=== PATIENT | male | born 1970 | race Caucasian/White ===

== ENCOUNTER 2017-11-20 22:56 | Emergency (ER) | payer BC ==
[2017-11-20 23:02] VITALS: TEMP 97.7
[2017-11-21] MEDS ORDERED: IPRATROPIUM-ALBUTEROL 3 ML NEB INHALATION STA (00:32)
[2017-11-21] MEDS ORDERED: methylPREDNISolone SOD SUCCI 125 MG/2 ML VIAL IM STA (00:32)
--- NOTE | 2017-11-21 01:06 | XR ---
EXAMINATION TYPE: XR chest 2V DATE OF EXAM: 11/21/2017 COMPARISON: NONE HISTORY: Cough TECHNIQUE: Frontal and lateral views of the chest are obtained. FINDINGS: Heart and mediastinum are normal. Lungs are clear. Diaphragm is normal. Bony thorax appear s normal. IMPRESSION: Normal chest. No change.
--- NOTE | 2017-11-21 01:49 | ED ---
General Adult HPI - General Chief complaint: Shortness of Breath Stated complaint: AGUSTINA Time Seen by Provider: 11/21/17 00:09 Source: patient, RN notes reviewed Mode of arrival: ambulatory Limitations: no limitations - History of Present Illness Initial comments: 47-year-old male presents to the emergency department with a chief complaint of asthma exacerbation. Patient states he's been using his inhalers at home without much improvement. He states he still feels short of breath and still has wheezing. He states there is been no actual nausea or vomiting. He has not had any high fevers or chills. He states that he just continues to have this cough he continues to feel short of breath. He was concerned because his inhalers did not seem to be helping him as much as they normally do so he thought that he should be seen. Patient states is not currently having any other symptoms at this time. Patient denies any recent fever, chills, chest pain , back pain, abdominal pain, nausea vomiting, numbness or tingling, dysuria or hematuria, constipation or diarrhea, headaches or visual changes, or any other current symptoms. - Related Data Home Medications Medication Instructions Recorded Confirmed Albuterol Sulfate [Proair Hfa] 2 puff INHALATION Q4HR PRN 04/11/14 02/05/16 Empagliflozin/Linagliptin 1 each PO QAM 02/03/16 02/05/16 [Glyxambi 25 mg-5 mg Tablet] Loratadine [Claritin] 10 mg PO DAILY 02/03/16 02/05/16 Mometasone/Formoterol [Dulera 100 2 puff INHALATION DIRECTED PRN 02/03/1601/17 Mcg/5 Mcg Inhaler] Omeprazole [PriLOSEC] 20 mg PO DAILY PRN 02/03/16 02/05/16 Tadalafil [Cialis] 20 mg PO DIRECTED PRN 02/03/16 02/05/16 metFORMIN HCL ER [Glucophage Xr] 2,000 mg PO QAM 02/03/16 02/05/16 Previous Rx's Medication Instructions Recorded Albuterol Nebulized [Ventolin 2.5 mg INHALATION Q4H #20 nebu 11/21/17 Nebulized] predniSONE 50 mg PO DAILY #5 tab 11/21/17 Allergies Allergy/AdvReac Type Severity Reaction Status Date / Time Iodinated Contrast- Oral and Allergy "PASSED Verified 11/20/17 23:02 IV Dye OUT, after [Iodinated Contrast Media - fluroscopy" IV Dye] Review of Systems ROS Statement: Those systems with pertinent positive or pertinent negative responses have been documented in the HPI. ROS Other: All systems not noted in ROS Statement are negative. Past Medical History Past Medical History: Asthma, Diabetes Mellitus, GERD/Reflux Additional Past Medical History / Comment(s): hx migraines, constipation and bloating, History of Any Multi-Drug Resistant Organisms: None Reported Past Surgical History: Hernia Repair, Orthopedic Surgery Additional Past Surgical History / Comment(s): ARTHROSCOPIC RT KNEE , rt SHOULDER surgery, Past Anesthesia/Blood Transfusion Reactions: Motion Sickness Past Psychological History: No Psychological Hx Reported Smoking Status: Never smoker Past Alcohol Use History: Occasional Past Drug Use History: None Reported - Past Family History Father Family Medical History: Cancer General Exam Limitations: no limitations General appearance: alert, in no apparent distress Eye exam: Present: normal appearance, PERRL, EOMI. Absent: scleral icterus, conjunctival injection, periorbital swelling ENT exam: Present: normal exam, mucous membranes moist Neck exam: Present: normal inspection. Absent: tenderness, meningismus, lymphadenopathy Respiratory exam: Present: wheezes (Expiratory), decreased breath sounds. Absent: respiratory distress, rales, rhonchi, stridor Cardiovascular Exam: Present: regular rate, normal rhythm, normal heart sounds. Absent: systolic murmur, diastolic murmur, rubs, gallop, clicks Extremities exam: Present: normal inspection, full ROM, normal capillary refill. Absent: tenderness, pedal edema, joint swelling, calf tenderness Back exam: Present: normal inspection Neurological exam: Present: alert, oriented X3 Psychiatric exam: Present: normal affect, normal mood Skin exam: Present: warm, dry, intact, normal color. Absent: rash Course Vital Signs 11/20/17 11/21/17 11/21/17 22:58 01:00 01:04 Temperature 97.7 F Pulse Rate 96 Respiratory 20 20 20 Rate Blood Pressure 133/73 O2 Sat by Pulse 99 Oximetry 11/21/17 11/21/17 01:12 01:21 Temperature Pulse Rate 96 96 Respiratory Rate Blood Pressure O2 Sat by Pulse Oximetry Medical Decision Making - Medical Decision Making 47-year-old male presents with what appears to be an asthma exacerbation. After treatment patient did have some improvement of symptoms. At this time he was given Solu-Medrol. We'll start him on steroids and a breathing machine for home. We discussed return parameters and follow-up and all questions. Patient stated that he understood and he is in agreement with this plan. All questions have been answered. He will be discharged. - Radiology Data Radiology results: report reviewed, image reviewed Disposition Clinical Impression: Asthma exacerbation Disposition: HOME SELF-CARE Condition: Stable Instructions: Asthma (ED) Additional Instructions: Please use medication as discussed. Please follow up with family doctor if symptoms have not improved over the next two days. Please return to the emergency room if your symptoms increase or worsen or for any other concerns. Prescriptions: Albuterol Nebulized [Ventolin Nebulized] 2.5 mg INHALATION Q4H #20 nebu predniSONE 50 mg PO DAILY #5 tab Referrals: Scot Harrison III, MD [Primary Care Provider] - 1-2 days Time of Disposition: 01:48
[2017-11-21 02:14] VITALS: BP 146/81; PULSE 82; RESP 16
== END 2017-11-21 02:13 | disposition home or self-care (01) ==
LOC: EC 22:56
DX: J45.901 Unspecified asthma with (acute) exacerbation (principal); K21.9 Gastro-esophageal reflux disease without esophagitis; E11.9 Type 2 diabetes mellitus without complications; Z91.041 Radiographic dye allergy status; Z79.84 Long term (current) use of oral hypoglycemic drugs; Z79.899 Other long term (current) drug therapy
CPT/HCPCS: 99285; 96372; 94640; 71046; J2930

== ENCOUNTER 2019-08-12 09:05 | Emergency (ER) | payer BC ==
[2019-08-12 09:22] VITALS: BP 127/88; PULSE 95; RESP 16; TEMP 97.6
[2019-08-12] MEDS ORDERED: SODIUM CHLORIDE 0.9% 2,000 ML IV STA (09:33)
[2019-08-12] MEDS ORDERED: DICYCLOMINE 20 MG TAB PO STA (09:34)
[2019-08-12 10:07] LABS: Basophils # (A) 0.1 k/uL (0-0.2); Basophils % (A) 1 %; Eosinophils # (A) 0.3 k/uL (0-0.7); Eosinophils % (A) 3 %; HCT 51.7 % (39.0-53.0); HGB 17.2 gm/dL (13.0-17.5); Lymphocytes # (A) 1.3 k/uL (1.0-4.8); Lymphocytes % (A) 11 %; MCH 26.5 pg (25.0-35.0); MCHC 33.2 g/dL (31.0-37.0); MCV 79.8 fL (80.0-100.0); Mean Platelet Volume 6.6; Monocytes # (A) 0.7 k/uL (0-1.0); Monocytes % (A) 5 %; Neutrophils % (A) 79 %; Platelet Count 285 k/uL (150-450); RBC 6.49 m/uL (4.30-5.90); WBC 12.6 k/uL (3.8-10.6)
[2019-08-12 10:15] LABS: ALT 45 U/L (21-72); AST 32 U/L (17-59); African American GFR (CKD) >90 (>60 ml/min/1.73 sqM); Albumin 4.4 g/dL (3.5-5.0); Alkaline Phosphatase 81 U/L (38-126); Amylase 65 U/L (30-110); Anion Gap 16 mmol/L; Blood Urea Nitrogen 13 mg/dL (9-20); Calcium 10.1 mg/dL (8.4-10.2); Carbon Dioxide 18 mmol/L (22-30); Chloride 107 mmol/L (98-107); Glucose 150 mg/dL (74-99); Potassium 4.2 mmol/L (3.5-5.1); Sodium 141 mmol/L (137-145); Total Bilirubin 0.4 mg/dL (0.2-1.3); Total Protein 7.8 g/dL (6.3-8.2)
--- NOTE | 2019-08-12 10:40 | CT ---
EXAMINATION TYPE: CT abdomen pelvis wo con DATE OF EXAM: 08/12/2019 COMPARISON: Previous study dated 11/25/2015. HISTORY: Nausea and diarrhea for 5-6 days. No complaints of pain. CT DLP: 968.1 mGycm Automated exposure control for dose reduction was used. FINDINGS: There is some minimal dependent atelectasis in the dependent portions of the lungs. There i s no pleural or pericardial fluid. The heart is not enlarged. Within the abdomen, the liver is enlarged measuring 23 cm. It is low in attenuation and likely fatty infiltrated. There is some fatty sparing near the gallbladder fossa. The spleen and gallbladder appea r normal. Both adrenal glands are normal There is a 2 mm calculus in the anterior lower pole calyx of the right kidney. No other definite cm l stones are seen. There is no evidence of hydronephrosis. The pancreas is normal. There is no significant retroperitoneal, iliac or inguinal adenopathy. Bladder is unremarkable. No significant diverticular change and there is no radiographic evidence of diverticulitis. The appen dyana is normal. Retrocecal. Small bowel loops are normal caliber. Free fluid There is been a previous anterior abdominal wall hernia repair. The hernia has recurred and contains fat only. Previously noted inguinal hernia is not identified. There is degenerative disc disease in the lower lumbar spine. There is minor hypertrophic spondylosis in the lower dorsal spine. IMPRESSION: 1. HEPATOMEGALY AND PROBABLE FATTY INFILTRATION OF THE LIVER. 2. NONOBSTRUCTIVE RIGHT-SIDED NEPHROLITHIASIS. 3. APPARENT ANTERIOR ABDOMINAL WALL HERNIA CONTAINING FAT ONLY. 4. DEGENERATIVE CHANGES WITHIN THE SPINE.
--- NOTE | 2019-08-12 10:44 | ED ---
Nausea/Vomiting/Diarrhea HPI - General Chief complaint: Nausea/Vomiting/Diarrhea Stated complaint: Stomach pain for a week/diarrhea Time Seen by Provider: 08/12/19 09:22 Source: patient, RN notes reviewed Mode of arrival: ambulatory Limitations: no limitations - History of Present Illness Initial comments: 49-year-old male presents emergency Department with chief complaint of abdominal pain, bloating and diarrhea. Patient states he has not felt well over the last week. He states initially thought he just ate something bad states he is having gas. He states that he started with the diarrhea. He did have the day yesterday but symptoms emergency worsened today. Patient states is very thirsty, he's had increase output with oral intake. Patient denies any no fevers or chills. Denies any sick contacts. Patient states that he had symptoms like this in the past in which he had some bowel issues. Patient has no dysuria no hematuria denies any melena or hematochezia. Patient 10 no recent antibiotic use no traveling. - Related Data Home Medications Medication Instructions Recorded Confirmed Omeprazole [PriLOSEC] 20 mg PO DAILY 02/03/16 08/12/19 metFORMIN HCL ER [Glucophage Xr] 2,000 mg PO DAILY 02/03/16 08/12/19 Atorvastatin [Lipitor] 20 mg PO DAILY 08/12/19 08/12/19 Empagliflozin [Jardiance] 25 mg PO DAILY 08/12/19 08/12/19 Fluticasone/Vilanterol [Breo 1 puff INHALATION RT-DAILY 08/12/19 08/12/19 Ellipta 100-25 Mcg Inhaler] sitaGLIPtin PHOSPHATE [Januvia] 100 mg PO DAILY 08/12/19 08/12/19 Previous Rx's Medication Instructions Recorded Dicyclomine [Bentyl] 20 mg PO TID #30 tablet 08/12/19 Ondansetron Odt [Zofran Odt] 4 mg PO Q8HR PRN #14 tab 08/12/19 Allergies Allergy/AdvReac Type Severity Reaction Status Date / Time Iodinated Contrast Media Allergy "PASSED Verified 08/12/19 10:11 [Iodinated Contrast Media - OUT, after IV Dye] fluroscopy" Review of Systems ROS Statement: Those systems with pertinent positive or pertinent negative responses have been documented in the HPI. ROS Other: All systems not noted in ROS Statement are negative. Past Medical History Past Medical History: Asthma, Diabetes Mellitus, GERD/Reflux Additional Past Medical History / Comment(s): hx migraines, constipation and bloating, History of Any Multi-Drug Resistant Organisms: None Reported Past Surgical History: Hernia Repair, Orthopedic Surgery Additional Past Surgical History / Comment(s): ARTHROSCOPIC RT KNEE , rt SHOULDER surgery, Past Anesthesia/Blood Transfusion Reactions: Motion Sickness Past Psychological History: No Psychological Hx Reported Smoking Status: Never smoker Past Alcohol Use History: Occasional Past Drug Use History: None Reported - Past Family History Father Family Medical History: Cancer General Exam Limitations: no limitations General appearance: alert, in no apparent distress Head exam: Present: atraumatic, normocephalic, normal inspection Eye exam: Present: normal appearance, PERRL, EOMI. Absent: scleral icterus, conjunctival injection, periorbital swelling ENT exam: Present: normal exam, normal oropharynx, mucous membranes moist Neck exam: Present: normal inspection. Absent: tenderness, meningismus, lymphadenopathy Respiratory exam: Present: normal lung sounds bilaterally. Absent: respiratory distress, wheezes, rales, rhonchi, stridor Cardiovascular Exam: Present: regular rate, normal rhythm, normal heart sounds. Absent: systolic murmur, diastolic murmur, rubs, gallop, clicks GI/Abdominal exam: Present: soft, tenderness (Minimal diffuse), normal bowel sounds. Absent: distended, guarding, rebound, rigid Back exam: Absent: CVA tenderness (R), CVA tenderness (L) Neurological exam: Present: alert Skin exam: Present: warm, dry, intact, normal color. Absent: rash Course Vital Signs 08/12/19 09:20 Temperature 97.6 F Pulse Rate 95 Respiratory 16 Rate Blood Pressure 127/88 O2 Sat by Pulse 97 Oximetry Medical Decision Making - Medical Decision Making Labs show mild dehydration, mild metabolic acidosis related to GI loss. Patient was hydrated well 2 L of fluids, given Bentyl. Symptoms have improved. CT shows nonspecific findings including umbilical hernia, fatty liver disease. Patient will be treated for traveler's diarrhea. Patient was given one dose of azithromycin emergency department. Patient to eat given Bentyl, antiemetics. - Lab Data Result diagrams: 08/12/19 09:54 08/12/19 09:54 Lab Results 08/12/19 08/12/19 08/12/19 Range/Units 09:54 09:54 10:48 WBC 12.6 H (3.8-10.6) k/uL RBC 6.49 H (4.30-5.90) m/uL Hgb 17.2 (13.0-17.5) gm/dL Hct 51.7 (39.0-53.0) % MCV 79.8 L (80.0-100.0) fL MCH 26.5 (25.0-35.0) pg MCHC 33.2 (31.0-37.0) g/dL RDW 15.0 (11.5-15.5) % Plt Count 285 (150-450) k/uL Neutrophils % 79 % Lymphocytes % 11 % Monocytes % 5 % Eosinophils % 3 % Basophils % 1 % Neutrophils # 10.0 H (1.3-7.7) k/uL Lymphocytes # 1.3 (1.0-4.8) k/uL Monocytes # 0.7 (0-1.0) k/uL Eosinophils # 0.3 (0-0.7) k/uL Basophils # 0.1 (0-0.2) k/uL Sodium 141 (137-145) mmol/L Potassium 4.2 (3.5-5.1) mmol/L Chloride 107 (98-107) mmol/L Carbon Dioxide 18 L (22-30) mmol/L Anion Gap 16 mmol/L BUN 13 (9-20) mg/dL Creatinine 0.81 (0.66-1.25) mg/dL Est GFR (CKD-EPI)AfAm >90 (>60 ml/min/1.73 sqM) Est GFR (CKD-EPI)NonAf >90 (>60 ml/min/1.73 sqM) Glucose 150 H (74-99) mg/dL Calcium 10.1 (8.4-10.2) mg/dL Total Bilirubin 0.4 (0.2-1.3) mg/dL AST 32 (17-59) U/L ALT 45 (21-72) U/L Alkaline Phosphatase 81 (38-126) U/L Total Protein 7.8 (6.3-8.2) g/dL Albumin 4.4 (3.5-5.0) g/dL Amylase 65 (30-110) U/L Lipase 75 (23-300) U/L Urine Color Yellow Urine Appearance Clear (Clear) Urine pH 5.5 (5.0-8.0) Ur Specific [place] 1.040 H (1.001-1.035) Urine Protein Trace H (Negative) Urine Glucose (UA) 4+ H (Negative) Urine Ketones 1+ H (Negative) Urine Blood Negative (Negative) Urine Nitrite Negative (Negative) Urine Bilirubin Negative (Negative) Urine Urobilinogen <2.0 (<2.0) mg/dL Ur Leukocyte Esterase Negative (Negative) Disposition Clinical Impression: Travelers' diarrhea, Abdominal pain Disposition: HOME SELF-CARE Condition: Stable Instructions (If sedation given, give patient instructions): Acute Diarrhea (ED) Additional Instructions: Please return to the Emergency Department if symptoms worsen or any other concerns. Prescriptions: Dicyclomine [Bentyl] 20 mg PO TID #30 tablet Ondansetron Odt [Zofran Odt] 4 mg PO Q8HR PRN #14 tab PRN Reason: Nausea Is patient prescribed a controlled substance at d/c from ED?: No Referrals: Scot Harrison III, MD [Primary Care Provider] - 1-2 days Time of Disposition: 11:35
[2019-08-12 11:21] LABS: Appearance,Urine Clear (Clear); Bilirubin,Urine Negative (Negative); Blood,Urine Negative (Negative); Color,Urine Yellow; Glucose,Urine (UA) 4+ (Negative); Ketones,Urine 1+ (Negative); Leukocyte Esterase,Urine Negative (Negative); Nitrite,Urine Negative (Negative); PH, Urine 5.5 (5.0-8.0); Protein,Urine Trace (Negative); Urobilinogen,Urine <2.0 mg/dL (<2.0)
[2019-08-12] MEDS ORDERED: AZITHROMYCIN 250 MG TAB PO STA (11:33)
== END 2019-08-12 12:18 | disposition home or self-care (01) ==
LOC: EC 09:05
DX: A09 Infectious gastroenteritis and colitis, unspecified (principal); E86.0 Dehydration; E87.2 Acidosis; K42.9 Umbilical hernia without obstruction or gangrene; K76.0 Fatty (change of) liver, not elsewhere classified; J45.909 Unspecified asthma, uncomplicated; E11.9 Type 2 diabetes mellitus without complications; K21.9 Gastro-esophageal reflux disease without esophagitis; Z79.84 Long term (current) use of oral hypoglycemic drugs; Z79.899 Other long term (current) drug therapy; Z79.51 Long term (current) use of inhaled steroids; Z91.041 Radiographic dye allergy status
CPT/HCPCS: 36415; 74176; 80053; 81003; 82150; 83690; 85025; 87045; 87046; 87324; 96360; 99284

== ENCOUNTER 2020-03-03 09:05 | Emergency (ER) | payer BC ==
[2020-03-03 09:10] VITALS: RESP 18; TEMP 98
[2020-03-03] MEDS ORDERED: LIDOCAINE 1% INJ 10MG/ML (20 ML MDV) SQ STA (09:14)
--- NOTE | 2020-03-03 09:43 | XR ---
EXAMINATION TYPE: XR hand complete LT DATE OF EXAM: 03/03/2020 CLINICAL HISTORY: Left hand pain after fall TECHNIQUE: Frontal, lateral and oblique images of the left hand are obtained. COMPARISON: None. FINDINGS: There is an ulnar/medial dislocation of the fourth proximal interphalangeal joint. Tiny chi p fracture fragment is seen at the volar surface at the proximal interphalangeal joint. The overlying soft tissue swelling. Degenerative change of the distal interphalangeal joints is displayed as osseo us proliferation. IMPRESSION: Dislocation of the left fourth proximal interphalangeal joint as described above with foc al air surface chip fracture fragment at the proximal interphalangeal joint.
--- NOTE | 2020-03-03 09:45 | XR ---
EXAMINATION TYPE: XR elbow complete RT, XR forearm RT DATE OF EXAM: 03/03/2020 CLINICAL HISTORY: Right elbow pain after injury TECHNIQUE: Frontal, lateral and oblique images of the right elbow are obtained. 2 views of the right forearm were also obtained COMPARISON: None FINDINGS: There is no acute fracture/dislocation evident in the left elbow nor forearm. Small epico ndylar osteophytes noted. No abnormal fat pad signs are seen. The overlying soft tissue appears unre markable. IMPRESSION: Mild soft tissue swelling over the dorsal olecranon. There is no acute fracture or dislo cation in the left elbow nor forearm.
--- NOTE | 2020-03-03 10:08 | XR ---
EXAMINATION TYPE: XR finger LT DATE OF EXAM: 03/03/2020 COMPARISON: NONE HISTORY: Post reduction images of the left fourth digit TECHNIQUE: 3 views of the left fourth digit are seen. FINDINGS: There is relocation of the previous dislocation at the fourth proximal interphalangeal join t. Soft tissue swelling remains around the joint. Small osseous fragment is seen without donor site a nd therefore this could relate to a small ossicle. IMPRESSION: Appropriate alignment after reduction of the previously seen dislocation at the left four th proximal interphalangeal joint. Residual overlying soft tissue swelling. Previously seen chip frac ture deformity has no apparent donor site and therefore likely relates to an ossicle.
[2020-03-03] MEDS ORDERED: DIPH,PERTUS(ACELL)TETVAC-LF 0.5 ML VIAL IM ONE (10:14)
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
[2020-03-03] MEDS ORDERED: ACET/COD 300 MG/30 MG STARTER PACK 6 TAB BTL PO STA (10:31)
[2020-03-03 11:05] VITALS: BP 155/79; PULSE 80
== END 2020-03-03 11:05 | disposition home or self-care (01) ==
LOC: EC 09:05
DX: S63.265A Dislocation of metacarpophalangeal joint of left ring finger, initial encounter (principal); S53.401A Unspecified sprain of right elbow, initial encounter; K21.9 Gastro-esophageal reflux disease without esophagitis; E11.9 Type 2 diabetes mellitus without complications; J45.909 Unspecified asthma, uncomplicated; Z79.84 Long term (current) use of oral hypoglycemic drugs; Z79.899 Other long term (current) drug therapy; Z79.51 Long term (current) use of inhaled steroids; Z91.041 Radiographic dye allergy status; V19.88XA Pedal cyclist (driver) (passenger) injured in other specified transport accidents, initial encounter; Y93.55 Activity, bike riding
CPT/HCPCS: 99284; 26700; 73080; 73090; 73130; 73140; J2001

== ENCOUNTER 2020-04-17 08:08 | Emergency (ER) | payer BC ==
[2020-04-17 08:12] VITALS: RESP 18; TEMP 98.7
[2020-04-17] MEDS ORDERED: SODIUM CHLORIDE 0.9% 500 ML 500 ML IV STA (08:23)
[2020-04-17] MEDS ORDERED: ONDANSETRON 4 MG/2 ML VIAL IVP STA (08:23)
[2020-04-17] MEDS ORDERED: SODIUM CHLORIDE 0.9% 1,000 ML IV STA (08:23)
[2020-04-17] MEDS ORDERED: DICYCLOMINE 20 MG TAB PO STA (08:38)
[2020-04-17] MEDS ORDERED: KETOROLAC 30 MG/ML 1 ML VIAL IVP STA (08:38)
[2020-04-17 08:59] LABS: Basophils % (A) 0 %; Eosinophils # (A) 0.3 k/uL (0-0.7); Eosinophils % (A) 3 %; HCT 54.5 % (39.0-53.0); HGB 18.1 gm/dL (13.0-17.5); Lymphocytes # (A) 1.7 k/uL (1.0-4.8); Lymphocytes % (A) 14 %; MCH 27.8 pg (25.0-35.0); MCHC 33.2 g/dL (31.0-37.0); MCV 83.9 fL (80.0-100.0); Mean Platelet Volume 7.5; Monocytes # (A) 0.7 k/uL (0-1.0); Monocytes % (A) 6 %; Neutrophils % (A) 76 %; Platelet Count 283 k/uL (150-450); RDW 15.2 % (11.5-15.5); WBC 11.8 k/uL (3.8-10.6)
[2020-04-17 09:00] LABS: ALT 30 U/L (4-49); AST 20 U/L (17-59); African American GFR (CKD) >90 (>60 ml/min/1.73 sqM); Albumin 4.2 g/dL (3.5-5.0); Alkaline Phosphatase 92 U/L (38-126); Amylase 61 U/L (30-110); Anion Gap 12 mmol/L; Blood Urea Nitrogen 12 mg/dL (9-20); Calcium 9.4 mg/dL (8.4-10.2); Carbon Dioxide 18 mmol/L (22-30); Chloride 107 mmol/L (98-107); Glucose 231 mg/dL (74-99); Non-African American GFR(CKD) >90 (>60 ml/min/1.73 sqM); Sodium 137 mmol/L (137-145); Total Bilirubin 0.5 mg/dL (0.2-1.3)
--- NOTE | 2020-04-17 09:21 | ED ---
General Adult HPI - General Chief complaint: Nausea/Vomiting/Diarrhea Stated complaint: GI issues Time Seen by Provider: 04/17/20 08:14 Source: patient, RN notes reviewed Mode of arrival: ambulatory Limitations: no limitations - History of Present Illness Initial comments: 49-year-old male with a past medical history of insulin-dependent diabetes mellitus, asthma, GERD, hernia repair with mesh presents to the emergency room for a chief complaint of abdominal pain. Patient states that about one week ago he started to have abdominal bloating and diarrhea. States he is having diarrhea several times per day. States it is watery in nature. Denies melena or hematochezia. Patient states that today he vomited which prompted him to come to the emergency department. Patient states he is passing a lot of gas and burping. Patient states this has happened to him several times before. Patient had a computed tomography scan in August for similar complaints that showed hepato-megaly and fatty liver infiltration.Patient has no other complaints at this time including shortness of breath, chest pain, headache, or visual changes. - Related Data Home Medications Medication Instructions Recorded Confirmed Omeprazole [PriLOSEC] 20 mg PO DAILY 02/03/16 04/17/20 metFORMIN HCL ER [Glucophage Xr] 2,000 mg PO DAILY 02/03/16 04/17/20 Atorvastatin [Lipitor] 20 mg PO DAILY 08/12/19 04/17/20 Empagliflozin [Jardiance] 25 mg PO DAILY 08/12/19 04/17/20 Fluticasone/Vilanterol [Breo 1 puff INHALATION RT-DAILY 08/12/19 04/17/20 Ellipta 100-25 Mcg Inhaler] sitaGLIPtin PHOSPHATE [Januvia] 100 mg PO DAILY 08/12/19 04/17/20 Naproxen Sodium [Aleve] 440 mg PO DAILY 04/17/20 04/17/20 Tadalafil 20 mg PO Q36H PRN 04/17/20 04/17/20 Previous Rx's Medication Instructions Recorded Dicyclomine [Bentyl] 20 mg PO TID PRN #14 tablet 04/17/20 Loperamide [Imodium] 2 mg PO QID 2 Days #16 capsule 04/17/20 Allergies Allergy/AdvReac Type Severity Reaction Status Date / Time Iodinated Contrast Media AdvReac "PASSED Verified 04/17/20 10:16 [Iodinated Contrast Media - OUT, after IV Dye] fluroscopy" Review of Systems ROS Statement: Those systems with pertinent positive or pertinent negative responses have been documented in the HPI. ROS Other: All systems not noted in ROS Statement are negative. Past Medical History Past Medical History: Asthma, Diabetes Mellitus, GERD/Reflux Additional Past Medical History / Comment(s): hx migraines, constipation and bloating, History of Any Multi-Drug Resistant Organisms: None Reported Past Surgical History: Hernia Repair, Orthopedic Surgery Additional Past Surgical History / Comment(s): ARTHROSCOPIC RT KNEE , rt SHOULDER surgery, Past Anesthesia/Blood Transfusion Reactions: Motion Sickness Past Psychological History: No Psychological Hx Reported Smoking Status: Current every day smoker Past Alcohol Use History: Occasional Past Drug Use History: None Reported - Past Family History Father Family Medical History: Cancer General Exam Limitations: no limitations General appearance: alert, in no apparent distress Head exam: Present: atraumatic, normocephalic, normal inspection Eye exam: Present: normal appearance, PERRL, EOMI. Absent: scleral icterus, conjunctival injection, periorbital swelling ENT exam: Present: normal exam, mucous membranes moist Neck exam: Present: normal inspection, full ROM. Absent: tenderness, menin gismus, lymphadenopathy Respiratory exam: Present: normal lung sounds bilaterally. Absent: respiratory distress, wheezes, rales, rhonchi, stridor Cardiovascular Exam: Present: regular rate, normal rhythm, normal heart sounds. Absent: systolic murmur, diastolic murmur, rubs, gallop, clicks GI/Abdominal exam: Present: soft, tenderness (Minimal generalized abdominal tenderness), normal bowel sounds. Absent: distended, guarding, rebound, rigid Back exam: Absent: CVA tenderness (R), CVA tenderness (L) Course Vital Signs 04/17/20 04/17/20 04/17/20 08:09 09:03 09:51 Temperature 98.7 F Pulse Rate 72 88 99 Respiratory 18 18 18 Rate Blood Pressure 129/84 147/85 145/80 O2 Sat by Pulse 98 97 97 Oximetry Medical Decision Making - Medical Decision Making Vitals are stable. Patient has minimal generalized abdominal tenderness. CBC does show evidence of hemoconcentration secondary to dehydration. Leukocytosis of a been 0.8 likely reactive. CMP unremarkable, patient has known insulin- dependent diabetes. C. diff is negative. X-ray KUB shows overall nonobstructive bowel gas pattern with mild small bowel wall thickening. Patient feeling better after medications. At this point I do recommend patient sees GI as this has been ongoing for years intermittently. Patient is agreeable to this. He will return for any worsening symptoms. - Lab Data Result diagrams: 04/17/20 08:40 04/17/20 08:40 Lab Results 04/17/20 04/17/20 04/17/20 Range/Units 08:40 08:40 08:40 WBC 11.8 H (3.8-10.6) k/uL RBC 6.50 H (4.30-5.90) m/uL Hgb 18.1 H (13.0-17.5) gm/dL Hct 54.5 H (39.0-53.0) % MCV 83.9 (80.0-100.0) fL MCH 27.8 (25.0-35.0) pg MCHC 33.2 (31.0-37.0) g/dL RDW 15.2 (11.5-15.5) % Plt Count 283 (150-450) k/uL Neutrophils % 76 % Lymphocytes % 14 % Monocytes % 6 % Eosinophils % 3 % Basophils % 0 % Neutrophils # 9.0 H (1.3-7.7) k/uL Lymphocytes # 1.7 (1.0-4.8) k/uL Monocytes # 0.7 (0-1.0) k/uL Eosinophils # 0.3 (0-0.7) k/uL Basophils # 0.0 (0-0.2) k/uL Sodium 137 (137-145) mmol/L Potassium 4.0 (3.5-5.1) mmol/L Chloride 107 (98-107) mmol/L Carbon Dioxide 18 L (22-30) mmol/L Anion Gap 12 mmol/L BUN 12 (9-20) mg/dL Creatinine 0.85 (0.66-1.25) mg/dL Est GFR (CKD-EPI)AfAm >90 (>60 ml/min/1.73 sqM) Est GFR (CKD-EPI)NonAf >90 (>60 ml/min/1.73 sqM) Glucose 231 H (74-99) mg/dL Calcium 9.4 (8.4-10.2) mg/dL Total Bilirubin 0.5 (0.2-1.3) mg/dL AST 20 (17-59) U/L ALT 30 (4-49) U/L Alkaline Phosphatase 92 (38-126) U/L Total Protein 7.0 (6.3-8.2) g/dL Albumin 4.2 (3.5-5.0) g/dL Amylase 61 (30-110) U/L Lipase 83 (23-300) U/L C. difficile (EIA) Intrp Negative (Negative) Disposition Clinical Impression: Abdominal pain, Diarrhea Disposition: HOME SELF-CARE Condition: Good Instructions (If sedation given, give patient instructions): Acute Diarrhea (ED), Abdominal Pain (ED) Additional Instructions: Please take Imodium as needed for diarrhea. Take Bentyl for pain. Follow-up with GI and primary care in 1-2 days. Return to the emergency room for any worsening symptoms. Prescriptions: Dicyclomine [Bentyl] 20 mg PO TID PRN #14 tablet PRN Reason: abdominal pain Loperamide [Imodium] 2 mg PO QID 2 Days #16 capsule Is patient prescribed a controlled substance at d/c from ED?: No Referrals: Scot Harrison III, MD [Primary Care Provider] - 1-2 days Miguel Sosa MD [STAFF PHYSICIAN] - 1-2 days Time of Disposition: 10:30
--- NOTE | 2020-04-17 09:41 | XR ---
EXAMINATION TYPE: XR KUB DATE OF EXAM: 04/17/2020 COMPARISON: NONE HISTORY: Pain TECHNIQUE: Single supine KUB image of the abdomen is obtained FINDINGS: Small bowel demonstrates no evidence for dilatation or air fluid levels. Gas and fecal material is seen in non-distended colon. Mild small bowel wall thickening is suggestiv e small bowel loops. No convincing evidence for pneumoperitoneum. No unusual calcifications. The lung bases are clear. The osseous structures are intact. IMPRESSION: 1. Overall nonobstructive bowel gas pattern.Mild small bowel wall thickening is suggestive small bow el loops.
[2020-04-17] MEDS ORDERED: FAMOTIDINE 20 MG/2 ML VIAL IV STA (10:34)
[2020-04-17 10:57] VITALS: BP 147/92; PULSE 92
== END 2020-04-17 11:11 | disposition home or self-care (01) ==
LOC: EC 08:08
DX: R10.9 Unspecified abdominal pain (principal); R19.7 Diarrhea, unspecified; R11.10 Vomiting, unspecified; J45.909 Unspecified asthma, uncomplicated; E11.9 Type 2 diabetes mellitus without complications; K21.9 Gastro-esophageal reflux disease without esophagitis; F17.200 Nicotine dependence, unspecified, uncomplicated; Z79.51 Long term (current) use of inhaled steroids; Z79.1 Long term (current) use of non-steroidal anti-inflammatories (NSAID); Z79.84 Long term (current) use of oral hypoglycemic drugs; Z79.899 Other long term (current) drug therapy; Z91.041 Radiographic dye allergy status
CPT/HCPCS: 36415; 80053; 82150; 83690; 85025; 87324; 87045; 87046; 74018; 99284; 96374; 96375 ×2; 96361 ×2; J2405; J1885

== ENCOUNTER 2020-05-10 12:27 | Day surgery (SDC) | payer BC ==
[2020-05-10 12:59] VITALS: TEMP 98.2
[2020-05-10] MEDS ORDERED: LACTATED RINGERS 1,000 ML IV ONE (13:05)
[2020-05-10 13:09] LABS: Glucose,Whole Blood 95 mg/dL (75-99)
[2020-05-10] MEDS ORDERED: PROPOFOL 10 MG/ML 20 ML VIAL IV ONE (13:43)
[2020-05-10] MEDS ORDERED: fentaNYL (PF) 50 MCG/ML 2 ML AMP ONE (13:43)
[2020-05-10] MEDS ORDERED: GLYCOPYRROLATE 0.2 MG/ML 2 ML VIAL ONE (13:43)
[2020-05-10] MEDS ORDERED: LIDOCAINE 1% INJ 10MG/ML (20 ML MDV) ONE (13:43)
--- NOTE | 2020-05-10 14:16 | P.PCN ---
Date of Procedure: 05/10/20 Procedure(s) Performed: Brief history: Patient is a pleasant 49-year-old white male scheduled for an elective upper endoscopy as well as colonoscopy as a part of evaluation of abdominal pain, intermittent episodes of severe diarrhea that happens once or twice a year and lasts for total of 14 days. During these episodes he has bowel movements anywhere from 10-15 a day. His and scheduled for an upper endoscopy as well as colonoscopy to evaluate further. Procedure performed: Esophagogastroduodenoscopy with biopsy Colonoscopy with snare polypectomy and biopsy Preoperative diagnosis: Abdominal pain/ Anesthesia: MAC Procedure: After informed consent was obtained from the patient was brought into the endoscopy unit and IV sedation was administered by anesthesia under continuous monitoring. Initially upper endoscopy was done. The Olympus GF 160 video endoscope was inserted inserted into the mouth and esophagus intubated without any difficulty and was gradually advanced into the stomach and duodenum and carefully examined. The bulb and second part of the duodenum appeared normal. his were done from the duodenum to rule out celiac disease. The scope was then withdrawn into the stomach adequately insufflated with air and upon careful examination the antrum had mild gastritis and biopsies were done from this area. The body, cardia and fundus appeared normal. The scope was then withdrawn into the esophagus. The GE junction was located at 40 cm to the incisors. It appeared regular with no erythema erosions or ulcerations. there were 2 small islands of Vargas's appearing mucosa just proximal to the GE junction measuring 2 mm in size which were biopsied. Rest of the esophagus appeared normal. Patient tolerated the procedure well. At this time the patient continued to remain sedation. Initial digital rectal examination was normal. Olympus CF 160 video colonoscope was then inserted into the rectum and gradually advanced to the cecum without any difficulty. Careful examination was performed as the scope was gradually being withdrawn. The prep was excellent. The cecum, ascending colon, appeared normal. In the hepatic flexure there was a 1 cm polyp removed by snare polypectomy. Rest of the transverse colon, descending colon, sigmoid colon and rectum appeared normal. and biopsies were done from ascending and descending colon to rule out microscopic/collagenous colitis. Retroflexion was performed in the rectum and no lesions were noted. Patient tolerated the procedure well. Impression: 1. Upper endoscopy revealed mild gastritis and short segment Vargas's esophagus] 2. Colonoscopy revealed 1 cm in the hepatic flexure polyp status post polypectomy. Rest of the colon appeared Recommendations: Findings of this examination were discussed with the patient as well as well as her family. He was advised to follow with the biopsy results. He'll be seen in office in 2 weeks. If the biopsy of the colon polyp reveals adenoma he can have a repeat colonoscopy in 3 years
[2020-05-10 14:19] VITALS: RESP 18
[2020-05-10 14:44] VITALS: BP 129/84; PULSE 61
== END 2020-05-10 14:53 | disposition home or self-care (01) ==
LOC: ORWHC2ENDO 12:27
PROVIDERS: ATTEND Internal Medicine Gastroenterology
DX: D12.3 Benign neoplasm of transverse colon (principal); K22.70 Barrett's esophagus without dysplasia; K29.70 Gastritis, unspecified, without bleeding; J45.909 Unspecified asthma, uncomplicated; F17.200 Nicotine dependence, unspecified, uncomplicated; E11.9 Type 2 diabetes mellitus without complications; R19.7 Diarrhea, unspecified; R11.10 Vomiting, unspecified; Z79.84 Long term (current) use of oral hypoglycemic drugs; Z79.51 Long term (current) use of inhaled steroids; Z79.899 Other long term (current) drug therapy; Z91.041 Radiographic dye allergy status
CPT/HCPCS: 45385; 45380; 43239; 88305; J2001; J3010; J2704; 45382

== ENCOUNTER → 2020-05-15 | Outpatient (CLI) | payer BC ==
--- NOTE | 2020-05-15 09:32 | US ---
EXAMINATION TYPE: US kidneys/renal and bladder DATE OF EXAM: 05/15/2020 COMPARISON: CT 08/12/2019 CLINICAL HISTORY: 49-year-old male R71.8 Other abnormality of red blood cells. Right renal stone per last CT; diabetic TECHNIQUE: Multiple sonographic images of the kidneys and bladder are obtained. FINDINGS: EXAM MEASUREMENTS: Right Kidney: 12.8 x 5.9 x 4.9 cm Left Kidney: 14.3 x 6.9 x 4.5 cm Post Void Residual Volume: 100.3 mL Right Kidney: Asymmetrically smaller than the left kidney. No hydronephrosis. A tiny 4 mm right renal calculus seen on 08/12/2019 CT is not apparent by ultrasound. Left Kidney: Mild pelvicaliectasis. Tiny benign upper pole cortical cyst measures 9 mm. Bladder: No gross abnormality. Prostate gland mildly enlarged at 4.1 cm wide. Bilateral Jets seen: not seen after 3 minute observation Normal Post Void Residual: abnormal post void volumes as is greater than 50.0ml. IMPRESSION: 1. Mild left-sided pelvicaliectasis may be transient. Consider short interval follow-up to reassess. 2. The tiny 4 mm nonobstructive right renal calculus seen on the CT of 08/12/2019 is not apparent on u ltrasound. 3. Urinary retention with a post void bladder volume of 100 mL. 4. Prostate gland is mildly enlarged at 4.1 cm wide.
== END | disposition home or self-care (01) ==
LOC: RADUSWWP 07:41
PROVIDERS: ATTEND Family Medicine
DX: N40.1 Benign prostatic hyperplasia with lower urinary tract symptoms (principal); R33.8 Other retention of urine
CPT/HCPCS: 76770

== ENCOUNTER 2020-11-18 15:58 | Emergency (ER) | payer BC ==
[2020-11-18 16:03] VITALS: TEMP 98.6
--- NOTE | 2020-11-18 16:28 | XR ---
EXAMINATION TYPE: XR KUB DATE OF EXAM: 11/18/2020 COMPARISON: 04/17/2020 HISTORY: Constipation TECHNIQUE: AP upright abdomen FINDINGS: No free air is evident. No suspicious differential air-fluid levels are present. Psoas cristiano ins are normal. Organomegaly is not evident. No suspicious calcifications are evident. Mild scoliosis is within the lower lumbar spine. There is no significant fecal retention. IMPRESSION: 1. Unremarkable abdomen
--- NOTE | 2020-11-18 16:29 | XR ---
EXAMINATION TYPE: XR lumbar spine 2 or 3V DATE OF EXAM: 11/18/2020 COMPARISON: None HISTORY: Low back pain TECHNIQUE: Three-view lumbar spine FINDINGS: There 5 lumbar-type vertebral bodies. Pedicles are intact. Disc space narrowing is present L3-4, L4-5, L5-S1. There is a scoliosis present with the convexity towards the left centered at L3. N o spondylolisthesis is evident. IMPRESSION: 1. Mild scoliosis. 2. Degenerative disc changes mid and lower lumbar spine
[2020-11-18] MEDS ORDERED: MORPHINE SULFATE 4 MG/ML SYRINGE IM STA (16:42)
[2020-11-18] MEDS ORDERED: CYCLOBENZAPRINE 10MG STARTER 3 TAB BTL PO STA (16:42)
[2020-11-18] MEDS ORDERED: KETOROLAC 15 MG/ML 1 ML VIAL IM STA (16:42)
[2020-11-18] MEDS ORDERED: ACET/COD 300 MG/30 MG STARTER PACK 6 TAB BTL PO STA (16:42)
--- NOTE | 2020-11-18 16:49 | ED ---
Back Pain HPI - General Chief Complaint: Back Pain/Injury Stated Complaint: Back Pain Time Seen by Provider: 11/18/20 16:04 Source: patient Limitations: no limitations - History of Present Illness Initial Comments: 50-year-old male history of trigger finger of the right hand, chronic constipation present to the ER today for multiple complaints. Patient states he mainly presents today for chief complaint of mid back pain. Patient states he was shoveling this morning he states a few hours after returning inside from shoveling he noticed back pain he states it is very sharp and is able to be point localized to touch. He denies a weakness sensation deficits of the lower extremities numbness radiation down the legs he denies IV drug use cancer fall struck trauma, fevers chest pain shortness of breath. He states the pain does become so intense it "takes his breath away" but he does not have difficulty breathing. Patient denies any nausea vomiting but states he has had very small bowel movements for the past 5 days he states he is also on a new diet. He states he also has history of chronic constipation, patient is still passing gas. Patient denies abdominal distention or pain. Patient states there is also something he noticed he states that he had pain at the base of his fourth digit on the right hand for the past week, he woke up this morning and could not extend it, he states he has had trigger finger in that finger in the past. He denies specific injury, but vaguely believes he hyperextended it a week ago, when the pain at the base of the digit began/ - Related Data Home Medications Medication Instructions Recorded Confirmed Omeprazole [PriLOSEC] 20 mg PO DAILY 02/03/16 11/18/20 Atorvastatin [Lipitor] 20 mg PO DAILY 08/12/19 11/18/20 Empagliflozin [Jardiance] 25 mg PO DAILY 08/12/19 11/18/20 Fluticasone/Vilanterol [Breo 1 puff INHALATION RT-DAILY 08/12/19 11/18/20 Ellipta 100-25 Mcg Inhaler] tadalafiL [Tadalafil] 20 mg PO Q36H PRN 04/17/20 11/18/20 Alpha Lipoic Acid 600 mg PO DAILY 11/18/20 11/18/20 Ascorbic Acid [Vitamin C] 500 mg PO DAILY 11/18/20 11/18/20 Naproxen 375 mg PO Q12H PRN 11/18/20 11/18/20 Zinc 50 mg PO DAILY 11/18/20 11/18/20 lisinopriL [Zestril] 10 mg PO DAILY 11/18/20 11/18/20 Previous Rx's Medication Instructions Recorded Cyclobenzaprine [Flexeril] 10 mg PO TID PRN 7 Days #21 tab 11/18/20 Allergies Allergy/AdvReac Type Severity Reaction Status Date / Time Iodinated Contrast Media AdvReac "PASSED Verified 11/18/20 16:43 [Iodinated Contrast Media - OUT, after IV Dye] fluroscopy" Review of Systems ROS Statement: Those systems with pertinent positive or pertinent negative responses have been documented in the HPI. ROS Other: All systems not noted in ROS Statement are negative. Past Medical History Past Medical History: Asthma, Diabetes Mellitus, GERD/Reflux Additional Past Medical History / Comment(s): hx migraines, constipation and bl oating, History of Any Multi-Drug Resistant Organisms: None Reported Past Surgical History: Hernia Repair, Orthopedic Surgery Additional Past Surgical History / Comment(s): ARTHROSCOPIC RT KNEE , rt SHOULDER surgery, Past Anesthesia/Blood Transfusion Reactions: Motion Sickness Past Psychological History: No Psychological Hx Reported Smoking Status: Never smoker Past Alcohol Use History: Occasional Past Drug Use History: None Reported - Past Family History Father Family Medical History: Cancer General Exam - General Exam Comments Initial Comments: General: The patient is awake and alert, in no distress Eye: Pupils are equal, round and reactive to light, extra-ocular movements are intact. No nystagmus. There is normal conjunctiva bilaterally. No signs of icterus. Ears, nose, mouth and throat: There are moist mucous membranes and no oral lesions. Neck: The neck is supple, there is no tenderness or JVD. Cardiovascular: There is a regular rate and rhythm. No murmur, rub or gallop is appreciated. Respiratory: Lungs are clear to auscultation, respirations are non-labored, breath sounds are equal. No wheezes, stridor, rales, or rhonchi. Gastrointestinal: Soft, non-distended, non-tender abdomen without masses or organomegaly noted. There is no rebound or guarding present. Musculoskeletal: 4th finger no redness, no swelling. finger stuck in flexed position at the PIP and DIP joints. tendon to extension of digit. Upon inspection of back normal. midline tenderness to palpation of mid thoracic spine. some paraspinal tenderness noted as well. Normal ROM, no tenderness. Strength 5/5 of the LE b/l. Sensation intact of the LE b/l including saddle region. radial and Dp pulses equal bilaterally 2+. Neurological: A&O x 3. CN II-XII intact grossly, There are no obvious motor or sensory deficits. Coordination appears grossly intact. Speech is normal. Skin: Skin is warm and dry and no rashes or lesions are noted. Psychiatric: Cooperative, appropriate mood & affect, normal judgment. Limitations: no limitations Course Vital Signs 11/18/20 11/18/20 15:59 17:35 Temperature 98.6 F Pulse Rate 94 87 Respiratory 20 18 Rate Blood Pressure 137/88 135/68 O2 Sat by Pulse 98 97 Oximetry Medical Decision Making - Medical Decision Making Patient neurovascularly intact. No history concerning for cauda equina that was provided by patient. pt xr (-) for fx. pain began after shoveling. patient denies abdominal pain or vomiting, dietary changes recently. kub no significant fecel retention or obstruction. no radicular symptoms. no trauma. patient educated on return parameters at length verbalized understanding. pt treated symptomatically and will be discharge dwith orthopedic surgery f/u for the trigger finger/possible tendon injury. splinted as tolerated, refused further extension. He is aware of importance of orthopedic f/u within 1-2 days for repair/best outcomes. Dr Bhatia agreeable to care plan. Disposition Clinical Impression: Injury of extensor tendon of right hand, Back pain Disposition: HOME SELF-CARE Condition: Good Instructions (If sedation given, give patient instructions): Thoracic Disc Herniation (ED), Trigger Finger (ED), Tendon Rupture (ED) Additional Instructions: Please use medication as discussed. Please follow-up with orthopedic surgery in 1-2 days, keep splint in place. Please return to emergency room if the symptoms increase or worsen or for any other concerns. Prescriptions: Cyclobenzaprine [Flexeril] 10 mg PO TID PRN 7 Days #21 tab PRN Reason: Muscle Spasm Is patient prescribed a controlled substance at d/c from ED?: No Referrals: Chava Mclaughlin MD [Primary Care Provider] - 1-2 days Jonas Perry DO [Doctor of Osteopathic Medicine] - 1-2 days Time of Disposition: 17:15
--- NOTE | 2020-11-18 17:06 | XR ---
EXAMINATION TYPE: XR hand complete RT DATE OF EXAM: 11/18/2020 COMPARISON: NONE HISTORY: Fourth digit pain TECHNIQUE: 3 views FINDINGS: There is some flexion deformity of the PIP joint of the ring finger right hand. I see no fr acture. Joint spaces appear normal. There are no pathologic calcifications. IMPRESSION: Flexion deformity. This could relate to tendon injury.
--- NOTE | 2020-11-18 17:08 | XR ---
EXAMINATION TYPE: XR thoracic spine complete DATE OF EXAM: 11/18/2020 COMPARISON: 11/21/2017 HISTORY: Pain TECHNIQUE: 3 views FINDINGS: Thoracic vertebra have normal alignment. Posterior elements are intact. There is no allyn quyen fracture. There is no paraspinal mass. There is mild spurring of the endplates. IMPRESSION: Negative thoracic spine exam. No fracture.
[2020-11-18] MEDS ORDERED: HYDROmorphone 0.5 MG/0.5 ML SYRINGE IM STA (17:26)
[2020-11-18 17:37] VITALS: BP 135/68; PULSE 87; RESP 18
== END 2020-11-18 17:37 | disposition home or self-care (01) ==
LOC: EC 15:58
DX: M54.6 Pain in thoracic spine (principal); S66.801A Unspecified injury of other specified muscles, fascia and tendons at wrist and hand level, right hand, initial encounter; J45.909 Unspecified asthma, uncomplicated; E11.9 Type 2 diabetes mellitus without complications; K21.9 Gastro-esophageal reflux disease without esophagitis; Z79.51 Long term (current) use of inhaled steroids; Z79.84 Long term (current) use of oral hypoglycemic drugs; Z79.899 Other long term (current) drug therapy; Y93.H1 Activity, digging, shoveling and raking; Z91.041 Radiographic dye allergy status
CPT/HCPCS: 72072; 72100; 73130; 74018; 99284; 96372 ×3; J2270; J1885; J1170

== ENCOUNTER 2020-11-18 23:31 | Inpatient (IN) | payer BC ==
[2020-11-18] MEDS ORDERED: HYDROmorphone 1 MG/ML 1 ML SYRINGE IM STA (23:53)
[2020-11-18] MEDS ORDERED: DIAZEPAM 5 MG/ML 2 ML INJ IM ONE (23:53)
--- NOTE | 2020-11-19 00:02 | ED ---
Back Pain HPI - General Chief Complaint: Back Pain/Injury Stated Complaint: Back Pain, revisit Time Seen by Provider: 11/18/20 23:47 Source: patient Limitations: no limitations - History of Present Illness Initial Comments: 50 year-old male patient presents to the emergency department for worsening back pain. Patient was seen and evaluated earlier today for similar symptoms. Patient had shoveled snow earlier in the day. As the day went on he started to have spasm type pain to the mid thoracic back. Patient was given medication earlier today, but states that they have not helped. Pain worsens with movement. States he is unable to lay down or stand. States he has some mild relief if he leans forward over some pillows. He denies any chest pain or shortness of breath. Denies radiation of the pain down his legs. Denies saddle anesthesia or loss of bowel or bladder control. Denies any numbness or tingling to the lower extremities. Denies history of back problems. denies difficulty with urination. Patient denies any recent rash, fever, chills, cough, abdominal pain, nausea, vomiting, diarrhea, constipation, dizziness, weakness, hematuria, dysuria, urinary urgency, urinary frequency, headache, visual changes, or any other complaints. - Related Data Home Medications Medication Instructions Recorded Confirmed Omeprazole [PriLOSEC] 20 mg PO DAILY 02/03/16 11/18/20 Atorvastatin [Lipitor] 20 mg PO DAILY 08/12/19 11/18/20 Empagliflozin [Jardiance] 25 mg PO DAILY 08/12/19 11/18/20 Fluticasone/Vilanterol [Breo 1 puff INHALATION RT-DAILY 08/12/19 11/18/20 Ellipta 100-25 Mcg Inhaler] tadalafiL [Tadalafil] 20 mg PO Q36H PRN 04/17/20 11/18/20 Alpha Lipoic Acid 600 mg PO DAILY 11/18/20 11/18/20 Ascorbic Acid [Vitamin C] 500 mg PO DAILY 11/18/20 11/18/20 Naproxen 375 mg PO Q12H PRN 11/18/20 11/18/20 Zinc 50 mg PO DAILY 11/18/20 11/18/20 lisinopriL [Zestril] 10 mg PO DAILY 11/18/20 11/18/20 Previous Rx's Medication Instructions Recorded Cyclobenzaprine [Flexeril] 10 mg PO TID PRN 7 Days #21 tab 11/18/20 Allergies Allergy/AdvReac Type Severity Reaction Status Date / Time Iodinated Contrast Media AdvReac "PASSED Verified 11/18/20 23:38 [Iodinated Contrast Media - OUT, after IV Dye] fluroscopy" Review of Systems ROS Statement: Those systems with pertinent positive or pertinent negative responses have been documented in the HPI. ROS Other: All systems not noted in ROS Statement are negative. Past Medical History Past Medical History: Asthma, Diabetes Mellitus, GERD/Reflux Additional Past Medical History / Comment(s): hx migraines, constipation and bloating, History of Any Multi-Drug Resistant Organisms: None Reported Past Surgical History: Hernia Repair, Orthopedic Surgery Additional Past Surgical History / Comment(s): ARTHROSCOPIC RT KNEE , rt SHOULDER surgery, Past Anesthesia/Blood Transfusion Reactions: Motion Sickness Past Psychological History: No Psychological Hx Reported Smoking Status: Never smoker Past Alcohol Use History: Occasional Past Drug Use History: None Reported - Past Family History Father Family Medical History: Cancer General Exam Limitations: no limitations General appearance: alert, other (This is a well developed, well nourished adult male patient in distress related to pain.) ENT exam: Present: normal exam, normal oropharynx, mucous membranes moist Respiratory exam: Present: normal lung sounds bilaterally. Absent: respiratory distress, wheezes, rales, rhonchi, stridor Cardiovascular Exam: Present: regular rate, normal rhythm, normal heart sounds. Absent: systolic murmur, diastolic murmur, rubs, gallop, clicks GI/Abdominal exam: Present: soft, normal bowel sounds. Absent: distended, tenderness, guarding, rebound, rigid Extremities exam: Present: normal inspection, full ROM, normal capillary refill, other (Skin to the lower extremities is pink, warm, and dry. Cap refill less than 3 seconds. Pedal posttibial pulses are 2+ and equal bilaterally. ). Absent: tenderness, pedal edema, joint swelling, calf tenderness Back exam: Present: normal inspection, paraspinal tenderness (thoracic bilateral) Neurological exam: Present: alert, oriented X3, CN II-XII intact, other (strength to lower extremities is 5/5.) Psychiatric exam: Present: normal affect, normal mood Skin exam: Present: warm, dry, intact, normal color. Absent: rash Course Vital Signs 11/18/20 11/19/20 23:33 01:40 Temperature 99.5 F Pulse Rate 86 81 Respiratory 20 18 Rate Blood Pressure 144/82 121/67 O2 Sat by Pulse 96 95 Oximetry Medical Decision Making - Medical Decision Making 50-year-old male patient presents to the emergency department today for evaluation of thoracic back pain. Patient did report pain worsens with any type of movement. Unable to lie flat or stands up. He did report some nausea yesterday but no vomiting. Patient was given IM Dilaudid and Valium and a urine sample was obtained. Urinalysis showed a positive urinary tract infection with positive nitrite. Upon reevaluation patient was still in the significant amount of discomfort so we did draw labs and perform CT chest abdomen and pelvis. CT was positive for developing small bowel obstruction or partial small bowel obstruction. We started Rocephin for the UTI. He'll be admitted with consult to surgery. Patient is agreeable with this plan. Case discussed with my attending Dr. Matthews. - Lab Data Result diagrams: 11/19/20 01:18 11/19/20 01:18 Lab Results 11/19/20 11/19/20 11/19/20 Range/Units 00:01 01:18 01:18 WBC 9.8 (3.8-10.6) k/uL RBC 5.58 (4.30-5.90) m/uL Hgb 14.9 (13.0-17.5) gm/dL Hct 45.9 (39.0-53.0) % MCV 82.1 (80.0-100.0) fL MCH 26.7 (25.0-35.0) pg MCHC 32.6 (31.0-37.0) g/dL RDW 15.4 (11.5-15.5) % Plt Count 189 (150-450) k/uL MPV 7.4 Neutrophils % 87 % Lymphocytes % 5 % Monocytes % 6 % Eosinophils % 1 % Basophils % 0 % Neutrophils # 8.5 H (1.3-7.7) k/uL Lymphocytes # 0.5 L (1.0-4.8) k/uL Monocytes # 0.5 (0-1.0) k/uL Eosinophils # 0.1 (0-0.7) k/uL Basophils # 0.0 (0-0.2) k/uL PT (9.0-12.0) sec INR (<1.2) APTT (22.0-30.0) sec Sodium 134 L (137-145) mmol/L Potassium 4.5 (3.5-5.1) mmol/L Chloride 104 (98-107) mmol/L Carbon Dioxide 20 L (22-30) mmol/L Anion Gap 10 mmol/L BUN 23 H (9-20) mg/dL Creatinine 0.78 (0.66-1.25) mg/dL Est GFR (CKD-EPI)AfAm >90 (>60 ml/min/1.73 sqM) Est GFR (CKD-EPI)NonAf >90 (>60 ml/min/1.73 sqM) Glucose 117 H (74-99) mg/dL Plasma Lactic Acid David (0.7-2.0) mmol/L Calcium 9.2 (8.4-10.2) mg/dL Total Bilirubin 0.6 (0.2-1.3) mg/dL AST 38 (17-59) U/L ALT 43 (4-49) U/L Alkaline Phosphatase 62 (38-126) U/L Troponin I (0.000-0.034) ng/mL Total Protein 7.2 (6.3-8.2) g/dL Albumin 4.0 (3.5-5.0) g/dL Lipase 86 (23-300) U/L Urine Color Yellow Urine Appearance Cloudy (Clear) Urine pH 5.5 (5.0-8.0) Ur Specific [place] 1.040 H (1.001-1.035) Urine Protein Negative (Negative) Urine Glucose (UA) 4+ H (Negative) Urine Ketones 1+ H (Negative) Urine Blood Trace H (Negative) Urine Nitrite Positive (Negative) Urine Bilirubin Negative (Negative) Urine Urobilinogen <2.0 (<2.0) mg/dL Ur Leukocyte Esterase Small H (Negative) Urine RBC 6 H (0-5) /hpf Urine WBC 47 H (0-5) /hpf Ur Squamous Epith Cells <1 (0-4) /hpf Urine Bacteria Rare H (None) /hpf 11/19/20 11/19/20 11/19/20 Range/Units 01:18 01:18 01:18 WBC (3.8-10.6) k/uL RBC (4.30-5.90) m/uL Hgb (13.0-17.5) gm/dL Hct (39.0-53.0) % MCV (80.0-100.0) fL MCH (25.0-35.0) pg MCHC (31.0-37.0) g/dL RDW (11.5-15.5) % Plt Count (150-450) k/uL MPV Neutrophils % % Lymphocytes % % Monocytes % % Eosinophils % % Basophils % % Neutrophils # (1.3-7.7) k/uL Lymphocytes # (1.0-4.8) k/uL Monocytes # (0-1.0) k/uL Eosinophils # (0-0.7) k/uL Basophils # (0-0.2) k/uL PT 10.9 (9.0-12.0) sec INR 1.0 (<1.2) APTT 25.5 (22.0-30.0) sec Sodium (137-145) mmol/L Potassium (3.5-5.1) mmol/L Chloride (98-107) mmol/L Carbon Dioxide (22-30) mmol/L Anion Gap mmol/L BUN (9-20) mg/dL Creatinine (0.66-1.25) mg/dL Est GFR (CKD-EPI)AfAm (>60 ml/min/1.73 sqM) Est GFR (CKD-EPI)NonAf (>60 ml/min/1.73 sqM) Glucose (74-99) mg/dL Plasma Lactic Acid David 0.9 (0.7-2.0) mmol/L Calcium (8.4-10.2) mg/dL Total Bilirubin (0.2-1.3) mg/dL AST (17-59) U/L ALT (4-49) U/L Alkaline Phosphatase (38-126) U/L Troponin I <0.012 (0.000-0.034) ng/mL Total Protein (6.3-8.2) g/dL Albumin (3.5-5.0) g/dL Lipase (23-300) U/L Urine Color Urine Appearance (Clear) Urine pH (5.0-8.0) Ur Specific [place] (1.001-1.035) Urine Protein (Negative) Urine Glucose (UA) (Negative) Urine Ketones (Negative) Urine Blood (Negative) Urine Nitrite (Negative) Urine Bilirubin (Negative) Urine Urobilinogen (<2.0) mg/dL Ur Leukocyte Esterase (Negative) Urine RBC (0-5) /hpf Urine WBC (0-5) /hpf Ur Squamous Epith Cells (0-4) /hpf Urine Bacteria (None) /hpf - EKG Data -: EKG Interpreted by Me EKG Comments: EKG obtained at shows normal sinus rhythm with incomplete right bundle branch block. Ventricular rate is 78, VA interval 174, QRS duration 104, QT 390, QTC 444. - Radiology Data Radiology results: report reviewed, image reviewed CT chest angiography was obtained. Report is reviewed in its entirety. Impression by Dr. Wolf shows cannot evaluate pulmonary arteries due to contrast IV. There is not much opacification of the vessels overall. Aorta appears unremarkable. No acute intrathoracic findings. CT abdomen and pelvis is obtained with contrast. Report was reviewed in its entirety. Impression by Dr. Wolf shows mildly distended loops of small bowel with gradual transition point in the right abdomen suspicious for deve loping/partial small bowel obstruction. Punctate nonobstructive stone in the right kidney. No hydronephrosis. Did discuss also reported posterior disc osteophyte complex causing at least mild spinal canal stenosis. Hepatomegaly. Mild colonic diverticulosis. 50 mm low-density lesion in the right lower liver with eventual filling and a delayed phase, possibly hemangioma Disposition Clinical Impression: Small bowel obstruction, UTI (urinary tract infection), Intractable back pain Disposition: ADMITTED IP TO THIS [facility] Condition: Serious Referrals: Chava Mclaughlin MD [Primary Care Provider] - 1-2 days Decision to Admit Reason: Admit from EC Decision Date: 11/19/20 Decision Time: 03:02
[2020-11-19 00:39] LABS: Appearance,Urine Cloudy (Clear); Bacteria,Urine Rare /hpf; Bilirubin,Urine Negative (Negative); Blood,Urine Trace (Negative); Color,Urine Yellow; Glucose,Urine (UA) 4+ (Negative); Ketones,Urine 1+ (Negative); Leukocyte Esterase,Urine Small (Negative); Nitrite,Urine Positive (Negative); PH, Urine 5.5 (5.0-8.0); Protein,Urine Negative (Negative); RBC,Urine 6 /hpf (0-5); Squamous Epithelial Cell,Urine <1 /hpf (0-4); Urobilinogen,Urine <2.0 mg/dL (<2.0); WBC,Urine 47 /hpf (0-5)
[2020-11-19] MEDS ORDERED: HYDROmorphone 1 MG/ML 1 ML SYRINGE IVP STA (00:57)
[2020-11-19] MEDS ORDERED: ONDANSETRON 4 MG/2 ML VIAL IVP STA (00:57)
[2020-11-19] MEDS ORDERED: SODIUM CHLORIDE 0.9% 1,000 ML IV STA (00:57)
[2020-11-19] MEDS ORDERED: diphenhydrAMINE 50 MG/ML 1 ML VIAL IVP STA (01:03)
[2020-11-19] MEDS ORDERED: methylPREDNISolone SOD SUCCI 125 MG/2 ML VIAL IV STA (01:03)
[2020-11-19] MEDS ORDERED: FAMOTIDINE 20 MG/2 ML VIAL IV STA (01:03)
[2020-11-19 01:27] LABS: Basophils % (A) 0 %; Eosinophils # (A) 0.1 k/uL (0-0.7); Eosinophils % (A) 1 %; HCT 45.9 % (39.0-53.0); HGB 14.9 gm/dL (13.0-17.5); Lymphocytes # (A) 0.5 k/uL (1.0-4.8); Lymphocytes % (A) 5 %; MCH 26.7 pg (25.0-35.0); MCHC 32.6 g/dL (31.0-37.0); MCV 82.1 fL (80.0-100.0); Mean Platelet Volume 7.4; Monocytes # (A) 0.5 k/uL (0-1.0); Monocytes % (A) 6 %; Neutrophils # (A) 8.5 k/uL (1.3-7.7); Neutrophils % (A) 87 %; Platelet Count 189 k/uL (150-450); RBC 5.58 m/uL (4.30-5.90); RDW 15.4 % (11.5-15.5); WBC 9.8 k/uL (3.8-10.6)
[2020-11-19 01:36] LABS: Partial Thromboplastin Time 25.5 sec (22.0-30.0); Prothrombin Time 10.9 sec (9.0-12.0)
[2020-11-19 01:43] LABS: ALT 43 U/L (4-49); AST 38 U/L (17-59); African American GFR (CKD) >90 (>60 ml/min/1.73 sqM); Alkaline Phosphatase 62 U/L (38-126); Anion Gap 10 mmol/L; Blood Urea Nitrogen 23 mg/dL (9-20); Calcium 9.2 mg/dL (8.4-10.2); Carbon Dioxide 20 mmol/L (22-30); Chloride 104 mmol/L (98-107); Glucose 117 mg/dL (74-99); Lipase 86 U/L (23-300); Non-African American GFR(CKD) >90 (>60 ml/min/1.73 sqM); Potassium 4.5 mmol/L (3.5-5.1); Sodium 134 mmol/L (137-145); Total Bilirubin 0.6 mg/dL (0.2-1.3); Total Protein 7.2 g/dL (6.3-8.2)
--- NOTE | 2020-11-19 02:36 | CT ---
EXAM: CT Angiography Chest With Intravenous Contrast CLINICAL HISTORY: ITS.REASON CT Reason: Bilateral flank pain; intractable TECHNIQUE: Axial computed tomographic angiography images of the chest with intravenous contrast. CTDI is 19.085 mGy and DLP is 634.4 mGy-cm. This CT exam was performed using one or more of the following dose reduction techniques: automated exposure control, adjustment of the mA and/or kV according to patient size, and/or use of iterative reconstruction technique. MIP reconstructed images were created and reviewed. COMPARISON: No relevant prior studies available. FINDINGS: Pulmonary arteries: Cannot evaluate pulmonary arteries due to contrast timing. Aorta: No thoracic aortic aneurysm. Lungs: No mass. No consolidation. Pleural space: No pneumothorax. No effusion. Heart: No cardiomegaly. No pericardial effusion. Bones/joints: No acute fracture or dislocation. Soft tissues: Unremarkable. Lymph nodes: No enlarged lymph nodes. IMPRESSION: 1. Cannot evaluate pulmonary arteries due to contrast timing. There is not much opacification of the vessel overall. Aorta appears unremarkable. 2. No acute intrathoracic findings.
--- NOTE | 2020-11-19 02:41 | CT ---
EXAM: CT Abdomen and Pelvis With Intravenous Contrast CLINICAL HISTORY: ITS.REASON CT Reason: Bilateral flank pain; intractable TECHNIQUE: Axial computed tomography images of the abdomen and pelvis with intravenous contrast. CTDI is 32.285 mGy and DLP is 1597.3 mGy-cm. This CT exam was performed using one or more of the following dose reduction techniques: automated exposure control, adjustment of the mA and/or kV according to patient size, and/or use of iterative reconstruction technique. COMPARISON: 08/12/2019 FINDINGS: ABDOMEN: Liver: Enlarged. 15 mm low-density lesion in the right lower liver with eventual filling on the delayed phase, possibly hemangioma. Gallbladder and bile ducts: Unremarkable. Pancreas: Unremarkable. Spleen: Unremarkable. Adrenals: Unremarkable. Kidneys and ureters: No hydronephrosis. Punctate nonobstructive stone in the right kidney. Cysts. Stomach and bowel: Mildly distended loops of small bowel with gradual transition point in the right abdomen suspicious for developing/partial small bowel obstruction. No bowel wall thickening. Mild colonic diverticulosis. PELVIS: Appendix: No evidence of appendicitis. Bladder: Unremarkable. Reproductive: Unremarkable. ABDOMEN and PELVIS: Intraperitoneal space: Unremarkable. Bones/joints: No acute fractures. Severe disc height loss at L3-4 with posterior disc osteophyte complex causing at least mild spinal canal stenosis. Soft tissues: Ventral wall hernia without incarceration. Vasculature: No abdominal aortic aneurysm. Lymph nodes: No enlarged lymph nodes. IMPRESSION: 1. Mildly distended loops of small bowel with gradual transition point in the right abdomen suspicious for developing/partial small bowel obstruction. 2. Punctate nonobstructive stone in the right kidney. No hydronephrosis. 3. Severe disc height loss at L3-4 with posterior disc osteophyte complex causing at least mild spinal canal stenosis. 4. Hepatomegaly. 5. Mild colonic diverticulosis. 6. 15 mm low-density lesion in the right lower liver with eventual filling on the delayed phase, possibly hemangioma.
[2020-11-19] MEDS ORDERED: ONDANSETRON 4 MG/2 ML VIAL IVP PRN (02:58)
[2020-11-19] MEDS ORDERED: NALOXONE 0.4 MG/ML 1 ML VIAL IV PRN (02:58)
[2020-11-19] MEDS: SODIUM CHLORIDE 0.9% 1,000 ML IV SCH ×2 (04:07→16:59)
[2020-11-19] MEDS: HYDROmorphone 1 MG/ML 1 ML SYRINGE IVP PRN ×3 (08:06→21:35)
--- NOTE | 2020-11-19 12:05 | P.HPIM ---
History of Present Illness This is a pleasant 50 years old male with past medical history of asthma, diabetes mellitus, GERD and Vargas's esophagus and migraine. Presents because of right hand middle trigger finger which is supposed to follow-up with an ort chencho at [facility] orthopedic clinic on this coming however the finger got locked, harder to straighten and painful significant emergency room and was treated temporarily and sent home however he started developing lower back pain about 8/10 in severity, dull to 45/10 in severity increased with movement, pain mainly in the upper lumbar area nonradiating to the legs. Patient denies weakness or numbness, no urine or bowel incontinence. 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 On admission there was suspicion of partial bowel obstruction on the CAT scan however patient denies abdominal pain, no nausea or vomiting. Last bowel movement was on Wednesday He denies smoking, alcohol or illicit drugs Vitas looks stable. Labs including CBC, BMP, INR, liver enzymes are unremarkable. Urine looks concentrated sample. Coronavirus not detected. CT of the chest, not evaluate pulmonary artery was due to contrast timing, no acute findings. CT of the abdomen and pelvis with contrast: Enlarged liver. Partial small bowel obstruction and severe disc height loss at L3-4 with posterior disc osteophyte complex causing at least mild spinal canal stenosis. EKG showing normal sinus rhythm at [address]-T changes. In the emergency room patient received pain medication, IV fluids and continue with ceftriaxone on normal saline at 75 mL/h. Review of Systems CONSTITUTIONAL: No fever, no malaise, no fatigue. HEENT: No recent visual problems or hearing problems. Denied any sore throat. CARDIOVASCULAR: No orthopnea, PND, no palpitations, no syncope. PULMONARY: No shortness of breath, no cough, no hemoptysis. GASTROINTESTINAL: No diarrhea, no nausea, no vomiting, no abdominal pain. Normoactive bowel sounds. NEUROLOGICAL: No headaches, no weakness, no numbness. HEMATOLOGICAL: Denies any bleeding or petechiae. GENITOURINARY: Denies any burning micturition, frequency, or urgency. MUSCULOSKELETAL/RHEUMATOLOGICAL: Denies any joint pain, swelling, or any muscle pain. ENDOCRINE: Denies any polyuria or polydipsia. Past Medical History Past Medical History: Asthma, Diabetes Mellitus, GERD/Reflux Additional Past Medical History / Comment(s): hx migraines, constipation and bloating, History of Any Multi-Drug Resistant Organisms: None Reported Past Surgical History: Hernia Repair, Orthopedic Surgery Additional Past Surgical History / Comment(s): ARTHROSCOPIC RT KNEE , rt SHOULDER surgery, Past Anesthesia/Blood Transfusion Reactions: Motion Sickness Past Psychological History: No Psychological Hx Reported Smoking Status: Never smoker Past Alcohol Use History: Occasional Past Drug Use History: None Reported - Past Family History Father Family Medical History: Cancer Medications and Allergies Home Medications Medication Instructions Recorded Confirmed Type Omeprazole [PriLOSEC] 20 mg PO DAILY 02/03/16 11/19/20 History Atorvastatin [Lipitor] 20 mg PO DAILY 08/12/19 11/19/20 History Empagliflozin [Jardiance] 25 mg PO DAILY 08/12/19 11/19/20 History Fluticasone/Vilanterol [Breo 1 puff INHALATION RT-DAILY 08/12/19 11/19/20 History Ellipta 100-25 Mcg Inhaler] tadalafiL [Tadalafil] 20 mg PO Q36H PRN 04/17/20 11/19/20 History Alpha Lipoic Acid 600 mg PO DAILY 11/18/20 11/19/20 History Ascorbic Acid [Vitamin C] 500 mg PO DAILY 11/18/20 11/19/20 History Cyclobenzaprine [Flexeril] 10 mg PO TID PRN 7 Days #21 tab 11/18/20 11/19/20 Rx Naproxen 375 mg PO Q12H PRN 11/18/20 11/19/20 History Zinc 50 mg PO DAILY 11/18/20 11/19/20 History lisinopriL [Zestril] 10 mg PO DAILY 11/18/20 11/19/20 History Allergies Allergy/AdvReac Type Severity Reaction Status Date / Time Iodinated Contrast Media AdvReac "PASSED Verified 11/19/20 07:13 [Iodinated Contrast Media - OUT, after IV Dye] fluroscopy" Physical Exam Vitals: Vital Signs Temp Pulse Resp BP Pulse Ox 11/19/20 09:43 98.1 F 81 18 118/68 98 11/19/20 08:09 98.4 F 83 18 126/77 96 11/19/20 06:00 82 18 118/71 96 11/19/20 05:00 85 20 121/66 93 L 02/16/21 03:05 86 19 128/76 91 L 11/19/20 01:40 81 18 121/67 95 11/18/20 23:33 99.5 F 86 20 144/82 96 Intake and Output 11/18/20 11/19/20 11/19/20 22:59 06:59 14:59 Other: Weight 99.79 kg GENERAL: The patient is alert and oriented x3, not in any acute distress. Well developed, well nourished. HEENT: Pupils are round and equally reacting to light. EOMI. No scleral icterus. No conjunctival pallor. Normocephalic, atraumatic. No pharyngeal erythema. No thyromegaly. CARDIOVASCULAR: S1 and S2 present. No murmurs, rubs, or gallops. PULMONARY: Chest is clear to auscultation, no wheezing or crackles. ABDOMEN: Soft, nontender, nondistended, normoactive bowel sounds. No palpable organomegaly. -MUSCULOSKELETAL: No joint swelling or deformity. Upper lumbar tenderness -EXTREMITIES: No cyanosis, clubbing, or pedal edema. Her right hand in a dressing, examination of the trigger finger is deferred NEUROLOGICAL: Gross neurological examination did not reveal any focal deficits. SKIN: No rashes. No petechiae Results CBC & Chem 7: 11/19/20 01:18 11/19/20 01:18 Labs: Abnormal Lab Results - Last 24 Hours (Table) 11/19/20 11/19/20 11/19/20 Range/Units 00:01 01:18 01:18 Neutrophils # 8.5 H (1.3-7.7) k/uL Lymphocytes # 0.5 L (1.0-4.8) k/uL Sodium 134 L (137-145) mmol/L Carbon Dioxide 20 L (22-30) mmol/L BUN 23 H (9-20) mg/dL Glucose 117 H (74-99) mg/dL Ur Specific [place] 1.040 H (1.001-1.035) Urine Glucose (UA) 4+ H (Negative) Urine Ketones 1+ H (Negative) Urine Blood Trace H (Negative) Ur Leukocyte Esterase Small H (Negative) Urine RBC 6 H (0-5) /hpf Urine WBC 47 H (0-5) /hpf Urine Bacteria Rare H (None) /hpf Assessment and Plan Assessment: severe disc height loss at L3-4 with posterior disc osteophyte complex causing at least mild spinal canal stenosis. partial small bowel obstruction Right hand trigger finger History of Vargas's esophagus Enlarged liver Hypertension History of GERD History of diabetes mellitus Plan: this is a pleasant 50 years old male who presents with small bowel obstruction. Continue with nothing by mouth, bowel rest, pain medication, IV fluid. general also going to consult orthopedic team Surgical consults for both the back pain of the trigger finger pain management. Labs and medication were reviewed.. Continue same treatment. Continue with symptomatic treatment. Resume home medication. Monitor lytes and vitals. DVT and GI prophylaxis. Further recommendations depends on the clinical course of the patient DVT prophylaxis: Subcutaneous heparin GI Prophylaxis: Pepcid PT/OT: Pending
--- NOTE | 2020-11-19 13:09 | P.GSCN ---
History of Present Illness Consult date: 11/19/20 History of present illness: CHIEF COMPLAINT: Back pain HISTORY OF PRESENT ILLNESS: This is a 50-year-old male with a known history of diabetes, asthma, constipation, GERD, Vargas's esophagus and umbilical hernia repair and laparoscopic lysis of adhesions in 2013. Patient presented to the ER yesterday regarding back pain. He was sent home with muscle relaxers and T ylenol with Codeine. Patient reports as the day progressed he continued to have worsening back pain. He reports that the back pain is just below his rib cage. He has been having issues with constipation. He reports having just a very small amount of pasty stool and sometimes small amount of liquidy stool. He has not passed any gas over the last 3 days. He doesn't having some nausea. Denies any vomiting. He does report that his back pain was worse yesterday after driving a long distance. Patient does have some urinary symptoms and is found to have evidence of a UTI. She denies any fever, chills or sweats. Denies any vomiting. Patient had computed tomography scan of the abdomen and pelvis showing mildly distended loops of small bowel with gradual transition point at the right abdomen suspicious for developing partial small bowel obstruction. Surgical service was consulted regarding possible partial small bowel obstruction. PAST MEDICAL HISTORY: See list. PAST SURGICAL HISTORY: See list. MEDICATIONS: See list. ALLERGIES: See list. SOCIAL HISTORY: No illicit drug use. REVIEW OF SYSTEMS: CONSTITUTIONAL: Denies fever or chills. HEENT: Denies blurred vision, vision changes, or eye pain. Denies hemoptysis CARDIOVASCULAR: Denies chest pain or pressure. RESPIRATORY: No shortness of breath. GASTROINTESTINAL: See HPI for pertinent findings HEMATOLOGIC: Denies bleeding disorders. GENITOURINARY: Denies any blood in urine or increased urinary frequency. SKIN: Denies pruitis. Denies rash. PHYSICAL EXAM: VITAL SIGNS: Reviewed GENERAL: Well-developed in no acute distress. HEENT: No sclera icterus. Extraocular movements grossly intact. Moist buccal mucosa. Head is atraumatic, normocephalic. No nasal drainage. ABDOMEN: Soft. Nondistended. Nontender NEUROLOGIC: Alert and oriented. Cranial nerves II through XII grossly intact. LABORATORY DATA: WBC 9.8 hemoglobin 14.9 and platelets 189 sodium 134 creatinine 0.78 lactic 0.9 LFTs normal lipase normal covid 19 negative IMAGING: Chest CTA cannot evaluate pulmonary arteries due to contrast timing. Aorta appears unremarkable. No acute intrathoracic findings. Computed tomography scan of the abdomen and pelvis mildly distended loops of small bowel with gradual transition point at the right abdomen suspicious for developing partial small bowel obstruction. Punctate nonobstructive stone in the right kidney. No hydronephrosis. Severe disc height loss at L3 to L4 with posterior disc osteophyte complex causing at least mild spinal canal stenosis. Hepatosplenomegaly. Mild colonic diverticulosis. 15 mm low-density lesion in the right lower liver with a ventricular filling on the delayed phase possible hemangioma. ASSESSMENT: 1. Partial small bowel obstruction 2. Lumbar back pain with severe disc height loss at L3-L4 with posterior disc osteophyte complex causing at least a mild spinal canal stenosis. Spinal service has been consulted PLAN: -Recommend conservative treatment for partial small bowel obstruction -Keep patient nothing by mouth -Continue IV fluids -No surgical intervention planned -Agree with spinal orthopedic consult regarding back pain and computed tomography scan abnormality of the lumbar spine Thank you for this consultation Physician Reconciliation Analyst note has been reviewed by physician. Signing provider agrees with the documented findings, assessment, and plan of care. Past Medical History Past Medical History: Asthma, Diabetes Mellitus, GERD/Reflux Additional Past Medical History / Comment(s): hx migraines, constipation and bloating, History of Any Multi-Drug Resistant Organisms: None Reported Past Surgical History: Hernia Repair, Orthopedic Surgery Additional Past Surgical History / Comment(s): ARTHROSCOPIC RT KNEE , rt SHOULDER surgery, Past Anesthesia/Blood Transfusion Reactions: Motion Sickness Past Psychological History: No Psychological Hx Reported Smoking Status: Never smoker Past Alcohol Use History: Occasional Past Drug Use History: None Reported - Past Family History Father Family Medical History: Cancer Additional Family Medical History / Comment(s): Malignant melanoma Mother Family Medical History: Coronary Artery Disease (CAD) Additional Family Medical History / Comment(s): Mother at the age of 81 yrs. She had 3 vessel CABG and cardiac stents Medications and Allergies Home Medications Medication Instructions Recorded Confirmed Type Omeprazole [PriLOSEC] 20 mg PO DAILY 02/03/16 11/19/20 History Atorvastatin [Lipitor] 20 mg PO DAILY 08/12/19 11/19/20 History Empagliflozin [Jardiance] 25 mg PO DAILY 08/12/19 11/19/20 History Fluticasone/Vilanterol [Breo 1 puff INHALATION RT-DAILY 08/12/19 11/19/20 History Ellipta 100-25 Mcg Inhaler] tadalafiL [Tadalafil] 20 mg PO Q36H PRN 04/17/20 11/19/20 History Alpha Lipoic Acid 600 mg PO DAILY 11/18/20 11/19/20 History Ascorbic Acid [Vitamin C] 500 mg PO DAILY 11/18/20 11/19/20 History Cyclobenzaprine [Flexeril] 10 mg PO TID PRN 7 Days #21 tab 11/18/20 11/19/20 Rx Naproxen 375 mg PO Q12H PRN 11/18/20 11/19/20 History Zinc 50 mg PO DAILY 11/18/20 11/19/20 History lisinopriL [Zestril] 10 mg PO DAILY 11/18/20 11/19/20 History Allergies Allergy/AdvReac Type Severity Reaction Status Date / Time Iodinated Contrast Media AdvReac "PASSED Verified 11/19/20 07:13 [Iodinated Contrast Media - OUT, after IV Dye] fluroscopy" Surgical - Exam Vital Signs Temp Pulse Resp BP Pulse Ox 99.5 F 86 20 144/82 96 11/18/20 23:33 11/18/20 23:33 11/18/20 23:33 11/18/20 23:33 11/18/20 23:33 Results - Labs 11/19/20 01:18 11/19/20 01:18 Abnormal Lab Results - Last 24 Hours (Table) 11/19/20 11/19/20 11/19/20 Range/Units 00:01 01:18 01:18 Neutrophils # 8.5 H (1.3-7.7) k/uL Lymphocytes # 0.5 L (1.0-4.8) k/uL Sodium 134 L (137-145) mmol/L Carbon Dioxide 20 L (22-30) mmol/L BUN 23 H (9-20) mg/dL Glucose 117 H (74-99) mg/dL Ur Specific [place] 1.040 H (1.001-1.035) Urine Glucose (UA) 4+ H (Negative) Urine Ketones 1+ H (Negative) Urine Blood Trace H (Negative) Ur Leukocyte Esterase Small H (Negative) Urine RBC 6 H (0-5) /hpf Urine WBC 47 H (0-5) /hpf Urine Bacteria Rare H (None) /hpf Microbiology - Last 24 Hours (Table) 11/19/20 00:01 Urine Culture - Preliminary Urine,Voided Diabetes panel 11/19/20 Range/Units 01:18 Sodium 134 L (137-145) mmol/L Potassium 4.5 (3.5-5.1) mmol/L Chloride 104 (98-107) mmol/L Carbon Dioxide 20 L (22-30) mmol/L BUN 23 H (9-20) mg/dL Creatinine 0.78 (0.66-1.25) mg/dL Glucose 117 H (74-99) mg/dL Calcium 9.2 (8.4-10.2) mg/dL AST 38 (17-59) U/L ALT 43 (4-49) U/L Alkaline Phosphatase 62 (38-126) U/L Total Protein 7.2 (6.3-8.2) g/dL Albumin 4.0 (3.5-5.0) g/dL Calcium panel 11/19/20 Range/Units 01:18 Calcium 9.2 (8.4-10.2) mg/dL Albumin 4.0 (3.5-5.0) g/dL Pituitary panel 11/19/20 Range/Units 01:18 Sodium 134 L (137-145) mmol/L Potassium 4.5 (3.5-5.1) mmol/L Chloride 104 (98-107) mmol/L Carbon Dioxide 20 L (22-30) mmol/L BUN 23 H (9-20) mg/dL Creatinine 0.78 (0.66-1.25) mg/dL Glucose 117 H (74-99) mg/dL Calcium 9.2 (8.4-10.2) mg/dL Adrenal panel 11/19/20 Range/Units 01:18 Sodium 134 L (137-145) mmol/L Potassium 4.5 (3.5-5.1) mmol/L Chloride 104 (98-107) mmol/L Carbon Dioxide 20 L (22-30) mmol/L BUN 23 H (9-20) mg/dL Creatinine 0.78 (0.66-1.25) mg/dL Glucose 117 H (74-99) mg/dL Calcium 9.2 (8.4-10.2) mg/dL Total Bilirubin 0.6 (0.2-1.3) mg/dL AST 38 (17-59) U/L ALT 43 (4-49) U/L Alkaline Phosphatase 62 (38-126) U/L Total Protein 7.2 (6.3-8.2) g/dL Albumin 4.0 (3.5-5.0) g/dL
[2020-11-19] MEDS: CYCLOBENZAPRINE 10 MG TAB PO PRN (13:51)
[2020-11-19] MEDS: HYDROcodone/APAP 5-325MG 1 EACH TAB PO PRN (16:34)
[2020-11-19 16:41] LABS: Glucose,Whole Blood 112 mg/dL (75-99)
[2020-11-19] MEDS: HEPARIN SODIUM,PORCINE 5,000 UNIT/ML 1 ML VIAL SQ SCH (21:35)
[2020-11-19] MEDS: FAMOTIDINE 20 MG/2 ML VIAL IV SCH (21:35)
[2020-11-19 23:02] LABS: Glucose,Whole Blood 91 mg/dL (75-99)
[2020-11-20] MEDS: SODIUM CHLORIDE 0.9% 1,000 ML IV SCH (05:31)
[2020-11-20] MEDS: HYDROcodone/APAP 5-325MG 1 EACH TAB PO PRN ×3 (05:41→20:13)
[2020-11-20] MEDS: HEPARIN SODIUM,PORCINE 5,000 UNIT/ML 1 ML VIAL SQ SCH ×2 (07:10→20:15)
[2020-11-20] MEDS: lisinopriL 10 MG TAB PO SCH (07:11)
[2020-11-20] MEDS: ZINC SULFATE 220 MG CAP PO SCH (07:11)
[2020-11-20] MEDS: FAMOTIDINE 20 MG/2 ML VIAL IV SCH ×2 (07:11→20:15)
[2020-11-20] MEDS: ATORVASTATIN 20 MG TAB PO SCH (07:11)
[2020-11-20] MEDS: ASCORBIC ACID 500 MG TAB PO SCH (07:11)
[2020-11-20] MEDS: CALCIUM CARB-VIT D 500 MG-5 MCG TAB PO SCH ×2 (07:11→17:17)
[2020-11-20 07:18] LABS: Glucose,Whole Blood 100 mg/dL (75-99)
[2020-11-20] MEDS ORDERED: NON FORMULARY DRUG (Alpha Lipoic Acid [Alpha Lipoic Acid] 600 MG Tablet) PO SCH (09:00)
[2020-11-20 09:42] LABS: African American GFR (CKD) 119.9 (60.0-200.0); Anion Gap 11.3 mmol/L (4.00-12.00); BUN/Creat Ratio 26.25 Ratio (12.00-20.00); Calcium 8.8 mg/dL (8.7-10.3); Carbon Dioxide 22.7 mmol/L (21.6-31.8); Non-African American GFR(CKD) 103.4 (60.0-200.0); Potassium 4.3 mmol/L (3.5-5.5)
--- NOTE | 2020-11-20 09:44 | P.PN ---
Subjective This is a pleasant 50 years old male with past medical history of asthma, diabetes mellitus, GERD and Vargas's esophagus and migraine. Presents because of right hand middle trigger finger which is supposed to follow-up with an orthopedic at [facility] orthopedic clinic on this coming however the finger got locked, harder to straighten and painful significant emergency room and was treated temporarily and sent home however he started developing lower back pain about 8/10 in severity, dull to 45/10 in severity increased with movement, pain mainly in the upper lumbar area nonradiating to the legs. Patient denies weakness or numbness, no urine or bowel incontinence. 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 On admission there was suspicion of partial bowel obstruction on the CAT scan however patient denies abdominal pain, no nausea or vomiting. Last bowel movement was on Wednesday He denies smoking, alcohol or illicit drugs Vitas looks stable. Labs including CBC, BMP, INR, liver enzymes are unremarkable. Urine looks concentrated sample. Coronavirus not detected. CT of the chest, not evaluate pulmonary artery was due to contrast timing, no acute findings. CT of the abdomen and pelvis with contrast: Enlarged liver. Partial small bowel obstruction and severe disc height loss at L3-4 with posterior disc osteophyte complex causing at least mild spinal canal stenosis. EKG showing normal sinus rhythm at [address]-T changes. In the emergency room patient received pain medication, IV fluids and continue with ceftriaxone on normal saline at 75 mL/h. 11/20/2020 Patient is still complaining from pain and the upper part of the lumbar spine, x-rays showing severe loss of the height of the intervertebral disc at L3 to L4. However patient denies any weakness or numbness. No loss of control of the urine or bowel. Orthopedic team were consulted and also for his right trigger finger which she supposed to follow with [facility] orthopedic as an outpatient upon discharge He was trying to pull himself up going to restroom while he was in the emergency room and he injured his right shoulder associated with pain around the deltoid area and limitation of active right arm abduction, more range of movement with passive abduction. No deformity. We will order right shoulder x-ray. General surgery team R following the case for possible partial bowel obstruction among patient with no abdominal pain or nausea or vomiting, however he has constipation but he is passing gas. He is currently nothing by mouth by surgical team Continue with pain management Labs are pending and are going to follow up. Hold physical therapy evaluation to patient seen by orthopedic team Review of Systems CONSTITUTIONAL: No fever, no malaise, no fatigue. HEENT: No recent visual problems or hearing problems. Denied any sore throat. CARDIOVASCULAR: No orthopnea, PND, no palpitations, no syncope. PULMONARY: No shortness of breath, no cough, no hemoptysis. GASTROINTESTINAL: No diarrhea, no nausea, no vomiting, no abdominal pain. Normoa ctive bowel sounds. NEUROLOGICAL: No headaches, no weakness, no numbness. Active Medications Generic Name Dose Route Start Last Admin Trade Name Freq PRN Reason Stop Dose Admin Hydrocodone Bitart/Acetaminophen 1 each 11/19/20 16:28 11/20/20 05:41 Hydrocodone/Apap 5-325mg 1 Each Tab PO 1 each Q6HR PRN Administration Pain Ascorbic Acid 500 mg 11/20/20 09:00 11/20/20 07:11 Ascorbic Acid 500 Mg Tab PO 500 mg DAILY NORI Administration Atorvastatin Calcium 20 mg 11/20/20 09:00 11/20/20 07:11 Atorvastatin 20 Mg Tab PO 20 mg DAILY NORI Administration Calcium Carbonate 1 each 11/20/20 07:30 11/20/20 07:11 Calcium Carb-Vit D 500 Mg-5 Mcg Tab PO 1 each BID-W/MEALS NORI Administration Cyclobenzaprine HCl 10 mg 11/19/20 12:03 11/19/20 13:51 Cyclobenzaprine 10 Mg Tab PO 10 mg TID PRN Administration Muscle Spasm Famotidine 20 mg 11/19/20 21:00 11/20/20 07:11 Famotidine 20 Mg/2 Ml Vial IV 20 mg Q12HR NORI Administration Heparin Sodium (Porcine) 5,000 unit 11/19/20 21:00 11/20/20 07:10 Heparin Sodium,Porcine 5,000 Unit/Ml 1 Ml Vial SQ 5,000 unit Q12HR NORI Administration Hydromorphone HCl 1 mg 11/19/20 02:58 11/19/20 21:35 Hydromorphone 1 Mg/Ml 1 Ml Syringe IVP 1 mg Q3HR PRN Administration Severe Pain Sodium Chloride 1,000 mls @ 75 mls/hr 11/19/20 03:00 11/20/20 05:31 Saline 0.9% IV Not Given .[id number] NORI Ceftriaxone Sodium 1 gm/ 50 mls @ 100 mls/hr 11/20/20 04:00 11/20/20 03:17 Sodium Chloride IVPB 100 mls/hr Q24H NORI Administration Lisinopril 10 mg 11/20/20 09:00 11/20/20 07:11 Lisinopril 10 Mg Tab PO 10 mg DAILY NORI Administration Naloxone HCl 0.2 mg 11/19/20 02:58 Naloxone 0.4 Mg/Ml 1 Ml Vial IV Q2M PRN Opioid Reversal Ondansetron HCl 4 mg 11/19/20 02:58 Ondansetron 4 Mg/2 Ml Vial IVP Q8HR PRN Nausea And Vomiting Zinc Sulfate 220 mg 11/20/20 09:00 11/20/20 07:11 Zinc Sulfate 220 Mg Cap PO 220 mg DAILY NORI Administration Objective - Vital Signs Vital signs: Vital Signs Temp 98.2 F 11/20/20 07:02 Pulse 80 11/20/20 08:00 Resp 16 11/20/20 08:00 BP 128/71 11/20/20 07:02 Pulse Ox 94 L 11/20/20 07:02 Intake & Output 11/19/20 11/20/20 11/20/20 18:59 06:59 18:59 Weight 99.79 kg Other: Voiding Method Toilet Toilet Toilet # Voids 1 1 - Exam GENERAL: The patient is alert and oriented x3, not in any acute distress. Well developed, well nourished. HEENT: Pupils are round and equally reacting to light. EOMI. No scleral icterus. No conjunctival pallor. Normocephalic, atraumatic. No pharyngeal erythema. No thyromegaly. CARDIOVASCULAR: S1 and S2 present. No murmurs, rubs, or gallops. PULMONARY: Chest is clear to auscultation, no wheezing or crackles. ABDOMEN: Soft, nontender, nondistended, normoactive bowel sounds. No palpable organomegaly. -MUSCULOSKELETAL: No joint swelling or deformity. Upper lumbar tenderness -EXTREMITIES: No cyanosis, clubbing, or pedal edema. Her right hand in a dressing, examination of the trigger finger is deferred. Limited abduction of the right arm with right shoulder tenderness NEUROLOGICAL: Gross neurological examination did not reveal any focal deficits. SKIN: No rashes. No petechiae - Labs CBC & Chem 7: 11/19/20 01:18 11/19/20 01:18 Labs: Abnormal Lab Results - Last 24 Hours (Table) 11/19/20 11/20/20 Range/Units 16:35 06:59 POC Glucose (mg/dL) 112 H 100 H (75-99) mg/dL Microbiology - Last 24 Hours (Table) 11/19/20 03:45 Blood Culture Gram Stain - Preliminary Blood 11/19/20 03:45 Blood Culture - Final Blood 11/19/20 00:01 Urine Culture - Preliminary Urine,Voided Assessment and Plan Assessment: severe disc height loss at L3-4 with posterior disc osteophyte complex causing at least mild spinal canal stenosis. partial small bowel obstruction Right hand trigger finger Right shoulder pain after blunt trauma History of Vargas's esophagus Enlarged liver Hypertension History of GERD History of diabetes mellitus Plan: this is a pleasant 50 years old male who presents with L3-4 intervertebral disc collapse, keep the patient nothing by mouth, bowel rest, pain medication, IV fluid. general also on the case, we consulted orthopedic team for back pain and trigger finger pain management. Also for his right shoulder.. Due right shoulder x-ray. Start calcium and vitamin D Labs and medication were reviewed.. Continue same treatment. Continue with symptomatic treatment. Resume home medication. Monitor lytes and vitals. DVT and GI prophylaxis. Further recommendations depends on the clinical course of the patient DVT prophylaxis: Subcutaneous heparin GI Prophylaxis: Pepcid PT/OT: deferred until after orthopedic evaluation
[2020-11-20] MEDS: HYDROmorphone 1 MG/ML 1 ML SYRINGE IVP PRN ×2 (10:03→17:26)
[2020-11-20] MEDS: CYCLOBENZAPRINE 10 MG TAB PO PRN (11:00)
--- NOTE | 2020-11-20 11:02 | P.CNOR ---
History of Present Illness - [facility] Consult date: 11/20/20 Requesting physician: Pradeep Jung Consult reason: low back pain History of present illness: Patient is a pleasant 50-year-old male who is seen and examined the bedside for further evaluation of his lumbar spine after degenerative changes were found at L3-[address] imaging. Patient states he originally presented to the emergency department for further evaluation of his right hand. He has trigger finger in his right the middle finger and ring finger. He states he was having some difficulty with MCP joint pain over the past week and presented in that regard. No imaging was taken. He was placed in a splint. He states prior to his evaluation emergency department he did start to experience some pain over the left lateral mid lumbar spine with pain radiating around his left flank to the belly. He states he is been unable to have a bowel movement over the past week. He does have significant abdominal pain. CT imaging was taken which showed evidence of a small bowel obstruction. He is being seen by general surgery. He is currently nothing by mouth and is being watched. General surgery is not currently playing for surgical intervention for his small bowel obstruction. He states he just did have a very small bowel movement which was exceedingly difficult as he states he had to push hard. He's had an exacerbation of his pain since that time. He denies any lower extremity weakness or radiculopathy bilaterally currently. Earlier he states he had some mild numbness and tingling over his medial thighs bilaterally which has subsided. He states prior to his presentation to the emergency department he was shoveling snow and using the snowblower without difficulty. He states he does not have chronic pain in his lumbar spine. He also states he previously followed at [facility] but states he had an outstanding bill that was not paid and since that time he has been unable to follow-up there. He states he has been following with [facility] for all of his orthopedic needs. He states he is planning to follow-up with him following his discharge from [facility]. He is not seeking any further evaluation for his right hand. Past Medical History Past Medical History: Asthma, Diabetes Mellitus, GERD/Reflux Additional Past Medical History / Comment(s): hx migraines, constipation and bloating, History of Any Multi-Drug Resistant Organisms: None Reported Past Surgical History: Hernia Repair, Orthopedic Surgery Additional Past Surgical History / Comment(s): ARTHROSCOPIC RT KNEE , rt SHOULDER surgery, Past Anesthesia/Blood Transfusion Reactions: Motion Sickness Past Psychological History: No Psychological Hx Reported Smoking Status: Never smoker Past Alcohol Use History: Occasional Past Drug Use History: None Reported - Past Family History Father Family Medical History: Cancer Additional Family Medical History / Comment(s): Malignant melanoma Mother Family Medical History: Coronary Artery Disease (CAD) Additional Family Medical History / Comment(s): Mother at the age of 81 yrs. She had 3 vessel CABG and cardiac stents Medications and Allergies Home Medications Medication Instructions Recorded Confirmed Type Omeprazole [PriLOSEC] 20 mg PO DAILY 02/03/16 11/19/20 History Atorvastatin [Lipitor] 20 mg PO DAILY 08/12/19 11/19/20 History Empagliflozin [Jardiance] 25 mg PO DAILY 08/12/19 11/19/20 History Fluticasone/Vilanterol [Breo 1 puff INHALATION RT-DAILY 08/12/19 11/19/20 History Ellipta 100-25 Mcg Inhaler] tadalafiL [Tadalafil] 20 mg PO Q36H PRN 04/17/20 11/19/20 History Alpha Lipoic Acid 600 mg PO DAILY 11/18/20 11/19/20 History Ascorbic Acid [Vitamin C] 500 mg PO DAILY 11/18/20 11/19/20 History Cyclobenzaprine [Flexeril] 10 mg PO TID PRN 7 Days #21 tab 11/18/20 11/19/20 Rx Naproxen 375 mg PO Q12H PRN 11/18/20 11/19/20 History Zinc 50 mg PO DAILY 11/18/20 11/19/20 History lisinopriL [Zestril] 10 mg PO DAILY 11/18/20 11/19/20 History Allergies Allergy/AdvReac Type Severity Reaction Status Date / Time Iodinated Contrast Media AdvReac "PASSED Verified 11/19/20 07:13 [Iodinated Contrast Media - OUT, after IV Dye] fluroscopy" Physical Examination Physical exam: Patient is awake, alert, and oriented 3 Vital signs stable Good chest excursion with deep inspiration and expiration Patient has significant difficulty rolling over in bed as that exacerbates left- sided low back pain and pain radiating around the left flank to the left side of the abdomen Examination of lumbar spine reveals skin is intact with no abrasions, lacerations, or bruises; no erythema, purulence or signs of infection Dorsiflexion, plantarflexion, and extensor hallucis longus positive sustained bilaterally Lower extremity strength 5/5 bilaterally Patient is able to perform adequate full range of motion of bilateral lower extremities without any significant difficulty Patellar reflex 2+ bilaterally bilaterally No lower extremity hyperreflexia bilaterally Straight leg test negative bilateral lower extremities Negative Lasegue's test bilaterally No signs or symptoms of DVT; no calf pain No pain with internal and external rotation of the hips bilaterally Neurovascularly intact bilaterally lower extremities Splint intact over the right wrist without difficulty Results Pertinent studies: CT of the abdomen and pelvis taken on 11/19/2020: Mildly distended loops of small bowel with gradual transition point in the right abdomen suspicious for developing partial small bowel obstruction; L3-4 severe degenerative disc disea se with posterior disc osteophyte complex resulting in moderate spinal canal stenosis; hepatomegaly; mild colonic diverticulosis - Labs Labs: Abnormal Lab Results - Last 24 Hours (Table) 11/19/20 11/20/20 11/20/20 Range/Units 16:35 05:10 05:10 BUN/Creatinine Ratio 26.25 H (12.00-20.00) Ratio POC Glucose (mg/dL) 112 H (75-99) mg/dL Vitamin D 25-Hydroxy 21.8 L (30.0-100.0) ng/mL Procalcitonin 6.46 H (0.02-0.09) ng/mL 11/20/20 Range/Units 06:59 BUN/Creatinine Ratio (12.00-20.00) Ratio POC Glucose (mg/dL) 100 H (75-99) mg/dL Vitamin D 25-Hydroxy (30.0-100.0) ng/mL Procalcitonin (0.02-0.09) ng/mL Microbiology - Last 24 Hours (Table) 11/19/20 03:45 Blood Culture Gram Stain - Preliminary Blood Blood Culture - Preliminary Strep agalactiae - (group b) 11/19/20 03:45 Blood Culture - Final Blood 11/19/20 00:01 Urine Culture - Preliminary Urine,Voided H & H 11/19/20 Range/Units 01:18 Hgb 14.9 (13.0-17.5) gm/dL Hct 45.9 (39.0-53.0) % Coagulation 11/19/20 Range/Units 01:18 INR 1.0 (<1.2) Result Diagrams: 11/19/20 01:18 11/20/20 05:10 Assessment and Plan Assessment: Assessment: Left-sided mid low back pain Left paravertebral lumbar spasm L3-4 severe degenerative disc disease with posterior osteophytic spurring L3-4 spinal canal stenosis Partial small bowel obstruction Diabetes mellitus Chronic right middle and ring finger trigger finger Hepatomegaly Mild chronic diverticulosis (1) Lumbar degenerative disc disease Current Visit: Yes Status: Acute Code(s): M51.36 - OTHER INTERVERTEBRAL DISC DEGENERATION, LUMBAR REGION SNOMED Code(s): 53963824 (2) Degeneration of intervertebral disc of lumbar region with osteophyte of lumbar vertebra Current Visit: Yes Status: Acute Code(s): M51.36 - OTHER INTERVERTEBRAL DISC DEGENERATION, LUMBAR REGION; M25.78 - OSTEOPHYTE, VERTEBRAE SNOMED Code(s): 590602223 (3) Lumbar stenosis Current Visit: Yes Status: Acute Code(s): M48.061 - SPINAL STENOSIS, LUMBAR REGION WITHOUT NEUROGENIC KEREN SNOMED Code(s): 93043942 (4) Lumbar paraspinal muscle spasm Current Visit: Yes Status: Acute Code(s): M62.830 - MUSCLE SPASM OF BACK SNOMED Code(s): 46694516789242486 (5) Diabetes mellitus Current Visit: Yes Status: Acute Code(s): E11.9 - TYPE 2 DIABETES MELLITUS WITHOUT COMPLICATIONS SNOMED Code(s): 35817696 (6) Trigger finger of right hand Current Visit: Yes Status: Acute Code(s): M65.30 - TRIGGER FINGER, UNSPECIFIED FINGER SNOMED Code(s): 774164535 (7) Diverticulosis Current Visit: Yes Status: Acute Code(s): K57.90 - DVRTCLOS OF INTEST, PART UNSP, W/O PERF OR ABSCESS W/O BLEED SNOMED Code(s): 378828609 (8) Small bowel obstruction Current Visit: Yes Status: Acute Code(s): K56.609 - UNSP INTESTNL OBST, UNSP TO PARTIAL VERSUS COMPLETE OBST SNOMED Code(s): 472006200 (9) Abdominal pain Current Visit: No Status: Acute Code(s): R10.9 - UNSPECIFIED ABDOMINAL PAIN SNOMED Code(s): 21943460 Plan: Plan: 1. After physical examination of the patient, further discussion with the patient, and reviewing of imaging, we will currently plan to continue with conservative treatment in regards to his lumbar spine. He does have significant degenerative change at L3-4 manager mass osteophytic spurring and moderate spinal canal stenosis. He states prior to his admission to the hospital he was able to shovel snow and snowblower without difficulty. He states he originally presented to the emergency department for further evaluation of his right middle finger and ring finger trigger finger. He was placed in a splint. He does not currently wish to have any treatment in this regard. He is planning to follow with his orthopedist following discharge from the hospital. He states prior to his presentation emergency department he began to experience some left-sided lumbar pain radiating around the flank and ribs to the abdomen. Upon further evaluation to the emergency department, he was found to have a partial small bowel obstruction. He does admit to significant difficulty with a bowel movement and states he has been unable to have a bowel movement over the past week. Just prior to my presentation to the room he states with significant difficulty he was able have one small bowel movement. He continues to deny any lower extremity weakness bilaterally. He states he did have some intermittent numbness over the bilateral medial thighs which has subsided. He has good range of motion of his lower extremities without difficulty. He does not experience chronic low back pain. He states he does not have any specific episode that exacerbated his pain radiating around his left side. Currently, we will plan to continue conservative treatment as it seems his symptoms may be stemming more from his partial small bowel obstruction rather than from his lumbar spine. We did discuss if his small bowel obstruction improves but his low back pain does not continue to improve we could plan for consultation with pain management. He states he does follow with [facility] in the outpatient setting for treatment in regards to his right upper extremity and his neck. He states he would plan to follow-up with them following discharge in regards to his right hand and lumbar spine. He would not plan for further evaluation in our office in the outpatient setting. At this time we would not plan for any acute surgical intervention in regards to his lumbar spine. He states he is currently receiving a muscle relaxer he may continue as prescribed as needed for control of symptoms. From an orthopedic spine standpoint he is not experiencing any neurological change and has good range of motion bilateral lower extremities with no current lower extremity radiculopathy. At this time, following the improvement of his small bowel obstruction, patient will be cleared for discharge from an orthopedic spine standpoint and will schedule to follow-up with his regular orthopedist, [facility] following discharge from the hospital. 2. Patient will continue to be seen and examined by multiple other medical providers including general surgery and medicine Time with Patient: Greater than 30 (Including obtaining history, physical examination, reviewing of imaging, and dictation.)
--- NOTE | 2020-11-20 11:16 | P.PN ---
Subjective Progress Note Date: 11/20/20 CHIEF COMPLAINT: Back pain HISTORY OF PRESENT ILLNESS: Patient is being followed for partial small bowel obstruction. He denies any abdominal pain. He does complain of lower back pain. He was found to have severe disc height loss at L3 to L4 with posterior disc osteophyte complex causing mild spinal canal stenosis. Patient evaluated by spinal surgery who is recommending conservative treatment. Patient denies any nausea or vomiting. He is starting to pass gas. Denies any bowel movement. He is also complaining of some right shoulder pain this morning. Afebrile. Creatinine 0.8 PHYSICAL EXAM: VITAL SIGNS: Reviewed. GENERAL: Well-developed in no acute distress. HEENT: No sclera icterus. Extraocular movements grossly intact. Moist buccal mucosa. Head is atraumatic, normocephalic. ABDOMEN: Soft. Nondistended. Nontender. NEUROLOGIC: Alert and oriented. Cranial nerves II through XII grossly intact. ASSESSMENT: 1. Partial small bowel obstruction 2. Lumbar back pain with severe disc height loss at L3-L4 with posterior disc osteophyte complex causing at least a mild spinal canal stenosis. Evaluated by spinal service they are recommending conservative treatment PLAN: -Recommend conservative treatment with partial small bowel dissection -Advance diet to full liquids -Continue IV fluids -No surgical intervention planned Physician Clinic Director note has been reviewed by physician. Signing provider agrees with the documented findings, assessment, and plan of care. Objective - Vital Signs Vital signs: Vital Signs Temp 98.2 F 11/20/20 07:02 Pulse 80 11/20/20 08:00 Resp 16 11/20/20 08:00 BP 128/71 11/20/20 07:02 Pulse Ox 94 L 11/20/20 07:02 Intake & Output 11/19/20 11/20/20 11/20/20 18:59 06:59 18:59 Weight 99.79 kg Other: Voiding Method Toilet Toilet Toilet # Voids 1 1 - Labs CBC & Chem 7: 11/19/20 01:18 11/20/20 05:10 Labs: Abnormal Lab Results - Last 24 Hours (Table) 11/19/20 11/20/20 11/20/20 Range/Units 16:35 05:10 05:10 BUN/Creatinine Ratio 26.25 H (12.00-20.00) Ratio POC Glucose (mg/dL) 112 H (75-99) mg/dL Vitamin D 25-Hydroxy 21.8 L (30.0-100.0) ng/mL Procalcitonin 6.46 H (0.02-0.09) ng/mL 11/20/20 Range/Units 06:59 BUN/Creatinine Ratio (12.00-20.00) Ratio POC Glucose (mg/dL) 100 H (75-99) mg/dL Vitamin D 25-Hydroxy (30.0-100.0) ng/mL Procalcitonin (0.02-0.09) ng/mL Microbiology - Last 24 Hours (Table) 11/19/20 03:45 Blood Culture Gram Stain - Preliminary Blood Blood Culture - Preliminary Strep agalactiae - (group b) 11/19/20 03:45 Blood Culture - Final Blood 11/19/20 00:01 Urine Culture - Preliminary Urine,Voided
[2020-11-20 12:05] LABS: Glucose,Whole Blood 90 mg/dL (75-99)
--- NOTE | 2020-11-20 12:31 | XR ---
EXAMINATION TYPE: XR shoulder complete RT DATE OF EXAM: 11/20/2020 CLINICAL HISTORY: pain TECHNIQUE: Three views of the right shoulder are obtained. COMPARISON: None FINDINGS: There is no acute fracture/dislocation evident. The acromioclavicular and glenohumeral gilberto int spaces appear within normal limits. The visualized ribs are intact and unremarkable. IMPRESSION: 1. There is no acute fracture or dislocation. ICD 10 NO FRACTURE, INITIAL EVALUATION
[2020-11-20] MEDS: SYMBICORT 80-4.5 MCG INHALER INHALATION SCH ×2 (13:46→19:04)
[2020-11-20 16:39] LABS: Glucose,Whole Blood 119 mg/dL (75-99)
[2020-11-20 20:04] LABS: Glucose,Whole Blood 118 mg/dL (75-99)
[2020-11-21] MEDS: SODIUM CHLORIDE 0.9% 1,000 ML IV SCH ×2 (00:05→07:44)
[2020-11-21] MEDS: HYDROmorphone 1 MG/ML 1 ML SYRINGE IVP PRN ×4 (00:37→19:55)
[2020-11-21] MEDS: HYDROcodone/APAP 5-325MG 1 EACH TAB PO PRN ×4 (03:54→23:35)
[2020-11-21 07:03] LABS: Glucose,Whole Blood 110 mg/dL (75-99)
[2020-11-21] MEDS: CALCIUM CARB-VIT D 500 MG-5 MCG TAB PO SCH ×2 (07:42→16:48)
[2020-11-21] MEDS: ASCORBIC ACID 500 MG TAB PO SCH (07:43)
[2020-11-21] MEDS: FAMOTIDINE 20 MG/2 ML VIAL IV SCH ×2 (07:43→19:54)
[2020-11-21] MEDS: ZINC SULFATE 220 MG CAP PO SCH (07:43)
[2020-11-21] MEDS: ATORVASTATIN 20 MG TAB PO SCH (07:43)
[2020-11-21] MEDS: lisinopriL 10 MG TAB PO SCH (07:43)
[2020-11-21] MEDS: HEPARIN SODIUM,PORCINE 5,000 UNIT/ML 1 ML VIAL SQ SCH ×2 (07:44→19:54)
[2020-11-21] MEDS: SYMBICORT 80-4.5 MCG INHALER INHALATION SCH ×2 (08:03→21:22)
--- NOTE | 2020-11-21 11:05 | P.PN ---
Subjective Progress Note Date: 11/21/20 CHIEF COMPLAINT: Back pain HISTORY OF PRESENT ILLNESS: Patient is being followed for partial small bowel obstruction. He denies any abdominal pain. He reports less pain in his lower back. He was found to have severe disc height loss at L3 to L4 with posterior disc osteophyte complex causing mild spinal canal stenosis. Patient evaluated by spinal surgery who is recommending conservative treatment and they felt that patient's back pain may be related to the small bowel obstruction.. He is passing gas and did have a small bowel movement yesterday. He is complaining of right shoulder pain and some swelling in the right clavicle. Patient is to be reevaluated by orthopedics today. Afebrile. PHYSICAL EXAM: VITAL SIGNS: Reviewed. GENERAL: Well-developed in no acute distress. HEENT: No sclera icterus. Extraocular movements grossly intact. Moist buccal mucosa. Head is atraumatic, normocephalic. ABDOMEN: Soft. Nondistended. Nontender. NEUROLOGIC: Alert and oriented. Cranial nerves II through XII grossly intact. ASSESSMENT: 1. Partial small bowel obstruction 2. Lumbar back pain with severe disc height loss at L3-L4 with posterior disc osteophyte complex causing at least a mild spinal canal stenosis. Evaluated by spinal service they are recommending conservative treatment PLAN: -Recommend conservative treatment with partial small bowel dissection -Advance diet to regular carbohydrate consistent -Hep-Lock IV fluid -Encourage patient to ambulate -No surgical intervention planned Physician Masking Machine Feeder note has been reviewed by physician. Signing provider agrees with the documented findings, assessment, and plan of care. Objective - Vital Signs Vital signs: Vital Signs Temp 98.4 F 11/21/20 07:42 Pulse 64 11/21/20 07:42 Resp 18 11/21/20 07:42 BP 149/89 11/21/20 07:42 Pulse Ox 97 11/21/20 07:42 Intake & Output 11/20/20 11/21/20 11/21/20 18:59 06:59 18:59 Intake Total 500 240 Balance 500 240 Intake: Oral 500 240 Other: Voiding Method Toilet Toilet Toilet # Voids 4 1 - Labs CBC & Chem 7: 11/19/20 01:18 11/20/20 05:10 Labs: Abnormal Lab Results - Last 24 Hours (Table) 11/20/20 11/20/20 11/21/20 Range/Units 16:36 20:02 06:56 POC Glucose (mg/dL) 119 H 118 H 110 H (75-99) mg/dL Microbiology - Last 24 Hours (Table) 11/19/20 03:45 Blood Culture Gram Stain - Final Blood Blood Culture - Final Strep agalactiae - (group b) 11/19/20 22:19 Blood Culture - Preliminary Blood No Growth after 24 hours 11/19/20 00:01 Urine Culture - Preliminary Urine,Voided Coagulase Negative Staph
[2020-11-21 11:12] LABS: Glucose,Whole Blood 96 mg/dL (75-99)
[2020-11-21] MEDS: CYCLOBENZAPRINE 10 MG TAB PO PRN (12:30)
[2020-11-21] MEDS ORDERED: KETOROLAC 15 MG/ML 1 ML VIAL IVP STA (13:11)
[2020-11-21 17:14] LABS: Glucose,Whole Blood 85 mg/dL (75-99)
--- NOTE | 2020-11-21 23:29 | P.PN ---
Subjective Progress Note Date: 11/21/20 This is a pleasant 50 years old male with past medical history of asthma, diabetes mellitus, GERD and Vargas's esophagus and migraine. Presents because of right hand middle trigger finger which is supposed to follow-up with an orthopedic at [facility] orthopedic clinic on this coming however the finger got locked, harder to straighten and painful significant emergency room and was treated temporarily and sent home however he started developing lower back pain about 8/10 in severity, dull to 45/10 in severity increased with movement, pain mainly in the upper lumbar area nonradiating to the legs. Patient denies weakness or numbness, no urine or bowel incontinence. 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 On admission there was suspicion of partial bowel obstruction on the CAT scan however patient denies abdominal pain, no nausea or vomiting. Last bowel movement was on Wednesday He denies smoking, alcohol or illicit drugs Vitas looks stable. Labs including CBC, BMP, INR, liver enzymes are unremarkable. Urine looks concentrated sample. Coronavirus not detected. CT of the chest, not evaluate pulmonary artery was due to contrast timing, no acute findings. CT of the abdomen and pelvis with contrast: Enlarged liver. Partial small bowel obstruction and severe disc height loss at L3-4 with posterior disc osteophyte complex causing at least mild spinal canal stenosis. EKG showing normal sinus rhythm at [address]-T changes. In the emergency room patient received pain medication, IV fluids and continue with ceftriaxone on normal saline at 75 mL/h. 11/20/2020 Patient is still complaining from pain and the upper part of the lumbar spine, x-rays showing severe loss of the height of the intervertebral disc at L3 to L4. However patient denies any weakness or numbness. No loss of control of the urine or bowel. Orthopedic team were consulted and also for his right trigger finger which she supposed to follow with [facility] orthopedic as an outpatient upon discharge He was trying to pull himself up going to restroom while he was in the emergency room and he injured his right shoulder associated with pain around the deltoid area and limitation of active right arm abduction, more range of movement with passive abduction. No deformity. We will order right shoulder x-ray. General surgery team R following the case for possible partial bowel obstruction among patient with no abdominal pain or nausea or vomiting, however he has constipation but he is passing gas. He is currently nothing by mouth by surgical team Continue with pain management Labs are pending and are going to follow up. Hold physical therapy evaluation to patient seen by orthopedic team 11/21/2020 Patient is currently lying in the bed awake alert and oriented x3. Denied any complaints of abdominal pain. Lower back pain is improving as well. Patient had CT of the abdomen pelvis was done showed severe disc height loss at L3-L4 with posterior disc osteophyte complex causing mild spinal canal stenosis. Patient was seen by orthopedic surgery and recommends conservative management at this time. Back pain could related to small bowel obstruction. Otherwise patient is pleasant platters and had a small bowel movement yesterday. Continued on conservative management at this time. Patient is complaining of right shoulder pain yesterday and had x-rays showed no acute process. Patient also complaining of tenderness and pain over the right clavicle mainly at the sternoclavicular junction. Contacted orthopedic surgery for evaluation. Otherwise patient is afebrile. Patient was also found to have elevated procalcitonin level at 6.46. Otherwise patient is afebrile and no leukocytosis. Blood cultures growing strep recollected and repeat cultures have been negative. ID evaluation. Review of Systems CONSTITUTIONAL: No fever, no malaise, no fatigue. HEENT: No recent visual problems or hearing problems. Denied any sore throat. CARDIOVASCULAR: No orthopnea, PND, no palpitations, no syncope. PULMONARY: No shortness of breath, no cough, no hemoptysis. GASTROINTESTINAL: No diarrhea, no nausea, no vomiting, no abdominal pain. Normoactive bowel sounds. NEUROLOGICAL: No headaches, no weakness, no numbness. Objective - Vital Signs Vital signs: Vital Signs Temp 97.9 F 11/21/20 14:00 Pulse 75 11/21/20 14:00 Resp 16 11/21/20 14:00 BP 130/82 11/21/20 14:00 Pulse Ox 95 11/21/20 14:00 Intake & Output 11/20/20 11/21/20 11/21/20 18:59 06:59 18:59 Intake Total 500 240 Balance 500 240 Intake: Oral 500 240 Other: Voiding Method Toilet Toilet Toilet # Voids 4 1 4 - Exam - Exam GENERAL: The patient is alert and oriented x3, not in any acute distress. Well developed, well nourished. HEENT: Pupils are round and equally reacting to light. EOMI. No scleral icterus. No conjunctival pallor. Normocephalic, atraumatic. No pharyngeal erythema. No thyromegaly. CARDIOVASCULAR: S1 and S2 present. No murmurs, rubs, or gallops. PULMONARY: Chest is clear to auscultation, no wheezing or crackles. ABDOMEN: Soft, nontender, nondistended, normoactive bowel sounds. No palpable organomegaly. -MUSCULOSKELETAL: No joint swelling or deformity. Upper lumbar tenderness, tenderness over left sternoclavicular junction. -EXTREMITIES: No cyanosis, clubbing, or pedal edema. Her right hand in a dressing, examination of the trigger finger is deferred. Limited abduction of the right arm with right shoulder tenderness NEUROLOGICAL: Gross neurological examination did not reveal any focal deficits. SKIN: No rashes. No petechiae - Labs CBC & Chem 7: 11/19/20 01:18 11/20/20 05:10 Labs: Abnormal Lab Results - Last 24 Hours (Table) 11/20/20 11/20/20 11/21/20 Range/Units 16:36 20:02 06:56 POC Glucose (mg/dL) 119 H 118 H 110 H (75-99) mg/dL Microbiology - Last 24 Hours (Table) 11/19/20 03:45 Blood Culture Gram Stain - Final Blood Blood Culture - Final Strep agalactiae - (group b) 11/19/20 22:19 Blood Culture - Preliminary Blood No Growth after 24 hours 11/19/20 00:01 Urine Culture - Preliminary Urine,Voided Coagulase Negative Staph Assessment and Plan Assessment: severe disc height loss at L3-4 with posterior disc osteophyte complex causing at least mild spinal canal stenosis. pain improving and no surgical intervention as per ortho, partial small bowel obstruction. improving. Strep agalactiae bacteremia Right hand trigger finger Right shoulder pain after blunt trauma History of Vargas's esophagus Enlarged liver Hypertension History of GERD History of diabetes mellitus Plan: this is a pleasant 50 years old male who presents with L3-4 intervertebral disc collapse seen by orthopedic team for back pain and trigger finger pain management. right shoulder x-ray showed no acute fx or dislocation. Patient was started oral diet and advance as tolerated. Started calcium and vitamin D Labs and medication were reviewed.. Continue same treatment. Continue with symptomatic treatment. Resume home medication. Monitor lytes and vitals. DVT and GI prophylaxis. Further recommendations depends on the clinical course of the patient DVT prophylaxis: Subcutaneous heparin GI Prophylaxis: Pepcid PT/OT: Time with Patient: Greater than 30
[2020-11-22] MEDS: HYDROmorphone 1 MG/ML 1 ML SYRINGE IVP PRN ×3 (02:26→19:52)
[2020-11-22] MEDS: CYCLOBENZAPRINE 10 MG TAB PO PRN ×3 (02:35→15:20)
[2020-11-22 06:45] LABS: Glucose,Whole Blood 119 mg/dL (75-99)
--- NOTE | 2020-11-22 07:30 | XR ---
EXAMINATION TYPE: XR chest 1V DATE OF EXAM: 11/22/2020 COMPARISON: 11/21/2017 INDICATION: Sternoclavicular joint pain on the right TECHNIQUE: Single frontal view of the chest is obtained. FINDINGS: The heart size is normal. The pulmonary vasculature is normal. The lungs are clear. Sternoclavicular junctions appear normal and unchanged. Patient is rotated slightly towards the left IMPRESSION: 1. No acute pulmonary process.
[2020-11-22] MEDS: SYMBICORT 80-4.5 MCG INHALER INHALATION SCH ×2 (07:51→20:07)
[2020-11-22] MEDS: HYDROcodone/APAP 5-325MG 1 EACH TAB PO PRN ×2 (08:13→15:20)
[2020-11-22] MEDS: lisinopriL 10 MG TAB PO SCH (08:14)
[2020-11-22] MEDS: ATORVASTATIN 20 MG TAB PO SCH (08:14)
[2020-11-22] MEDS: ZINC SULFATE 220 MG CAP PO SCH (08:15)
[2020-11-22] MEDS: CALCIUM CARB-VIT D 500 MG-5 MCG TAB PO SCH ×2 (08:15→16:17)
[2020-11-22] MEDS: ASCORBIC ACID 500 MG TAB PO SCH (08:15)
[2020-11-22] MEDS: FAMOTIDINE 20 MG/2 ML VIAL IV SCH ×2 (08:17→19:52)
[2020-11-22] MEDS: HEPARIN SODIUM,PORCINE 5,000 UNIT/ML 1 ML VIAL SQ SCH ×2 (08:17→19:51)
[2020-11-22] MEDS ORDERED: NA PHOS,M-B/NA PHOS,DI-BA 133 ML ENEMA RECTAL STA (09:20)
[2020-11-22 11:33] LABS: Glucose,Whole Blood 110 mg/dL (75-99)
--- NOTE | 2020-11-22 11:35 | P.PN ---
Subjective Progress Note Date: 11/22/20 CHIEF COMPLAINT: Back pain HISTORY OF PRESENT ILLNESS: Patient seen and examined with Dr. juan. Jasmina ent is being followed for partial small bowel obstruction. He denies any abdominal pain. He is complaining of lower back pain. He is asking for something to help to have a bowel movement. He is able to pass gas. He did have a small bowel movement yesterday. He denies any nausea or vomiting. He is afebrile. He does report that the Toradol gave him some relief in his right shoulder pain and lower back pain. Tolerating regular diet. Afebrile. Orthopedics evaluating patient regarding his shoulder pain. PHYSICAL EXAM: VITAL SIGNS: Reviewed. GENERAL: Well-developed in no acute distress. HEENT: No sclera icterus. Extraocular movements grossly intact. Moist buccal mucosa. Head is atraumatic, normocephalic. ABDOMEN: Soft. Nondistended. Nontender. NEUROLOGIC: Alert and oriented. Cranial nerves II through XII grossly intact. ASSESSMENT: 1. Partial small bowel obstruction improving 2. Lumbar back pain with severe disc height loss at L3-L4 with posterior disc osteophyte complex causing at least a mild spinal canal stenosis. Evaluated by spinal service they are recommending conservative treatment PLAN: -Recommend conservative treatment of partial small bowel dissection -Patient given a Fleet enema -Continue regular diet -Encourage patient to ambulate -No surgical intervention planned -Patient can be discharge from surgical standpoint. Physician Hose Seamer note has been reviewed by physician. Signing provider agrees with the documented findings, assessment, and plan of care. Objective - Vital Signs Vital signs: Vital Signs Temp 97.7 F 11/22/20 07:30 Pulse 70 11/22/20 07:30 Resp 16 11/22/20 08:00 BP 141/82 11/22/20 07:30 Pulse Ox 96 11/22/20 07:30 Intake & Output 11/21/20 11/22/20 11/22/20 18:59 06:59 18:59 Output Total 584 Balance -584 Output: Post Void Residual 584 Other: Voiding Method Toilet Toilet Toilet # Voids 4 2 1 # Bowel Movements 1 - Labs CBC & Chem 7: 11/19/20 01:18 11/20/20 05:10 Labs: Abnormal Lab Results - Last 24 Hours (Table) 11/22/20 Range/Units 06:43 POC Glucose (mg/dL) 119 H (75-99) mg/dL Microbiology - Last 24 Hours (Table) 11/19/20 00:01 Urine Culture - Final Urine,Voided Staph hominis sub sp. hominis 11/19/20 22:19 Blood Culture - Preliminary Blood No Growth after 48 hours 11/19/20 03:45 Blood Culture Gram Stain - Final Blood Blood Culture - Final Strep agalactiae - (group b)
[2020-11-22 15:01] LABS: Basophils # (A) 0.04 X 10*3/uL (0.00-0.10); Basophils % (A) 0.6 %; Eosinophils # (A) 0.07 X 10*3/uL (0.04-0.35); HCT 48.9 % (39.6-50.0); HGB 15.5 g/dL (13.0-17.0); Lymphocytes # (A) 1.95 X 10*3/uL (0.90-5.00); Lymphocytes % (A) 27.1 %; MCH 26.4 pg (27.0-32.0); MCHC 31.7 g/dL (32.0-37.0); MCV 83.2 fL (80.0-97.0); Mean Platelet Volume 9.9 fL (9.5-12.2); Monocytes # (A) 0.88 X 10*3/uL (0.20-1.00); Monocytes % (A) 12.2 %; Neutrophils # (A) 4.21 X 10*3/uL (1.80-7.70); Neutrophils % (A) 58.5 %; Platelet Count 258 X 10*3/uL (140-440); RBC 5.88 X 10*6/uL (4.40-5.60); RDW 16.2 % (11.5-14.5); WBC 7.19 X 10*3/uL (4.50-10.00)
--- NOTE | 2020-11-22 15:54 | P.PN ---
Subjective Progress Note Date: 11/22/20 This is a pleasant 50 years old male with past medical history of asthma, diabetes mellitus, GERD and Vargas's esophagus and migraine. Presents because of right hand middle trigger finger which is supposed to follow-up with an orthopedic at [facility] clinic on this coming however the finger got locked, harder to straighten and painful significant emergency room and was treated temporarily and sent home however he started developing lower back pain about 8/10 in severity, dull to 45/10 in severity increased with movement, pain mainly in the upper lumbar area nonradiating to the legs. Patient denies weakness or numbness, no urine or bowel incontinence. 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 On admission there was suspicion of partial bowel obstruction on the CAT scan however patient denies abdominal pain, no nausea or vomiting. Last bowel movement was on Wednesday He denies smoking, alcohol or illicit drugs Vitas looks stable. Labs including CBC, BMP, INR, liver enzymes are unremarkable. Urine looks concentrated sample. Coronavirus not detected. CT of the chest, not evaluate pulmonary artery was due to contrast timing, no acute findings. CT of the abdomen and pelvis with contrast: Enlarged liver. Partial small bowel obstruction and severe disc height loss at L3-4 with posterior disc osteophyte complex causing at least mild spinal canal stenosis. EKG showing normal sinus rhythm at [address]-T changes. In the emergency room patient received pain medication, IV fluids and continue with ceftriaxone on normal saline at 75 mL/h. 11/20/2020 Patient is still complaining from pain and the upper part of the lumbar spine, x-rays showing severe loss of the height of the intervertebral disc at L3 to L4. However patient denies any weakness or numbness. No loss of control of the urine or bowel. Orthopedic team were consulted and also for his right trigger finger which she supposed to follow with [facility] orthopedic as an outpatient upon discharge He was trying to pull himself up going to restroom while he was in the emergency room and he injured his right shoulder associated with pain around the deltoid area and limitation of active right arm abduction, more range of movement with passive abduction. No deformity. We will order right shoulder x-ray. General surgery team R following the case for possible partial bowel obstruction among patient with no abdominal pain or nausea or vomiting, however he has constipation but he is passing gas. He is currently nothing by mouth by surgical team Continue with pain management Labs are pending and are going to follow up. Hold physical therapy evaluation to patient seen by orthopedic team 11/21/2020 Patient is currently lying in the bed awake alert and oriented x3. Denied any complaints of abdominal pain. Lower back pain is improving as well. Patient had CT of the abdomen pelvis was done showed severe disc height loss at L3-L4 with posterior disc osteophyte complex causing mild spinal canal stenosis. Patient was seen by orthopedic surgery and recommends conservative management at this time. Back pain could related to small bowel obstruction. Otherwise patient is pleasant platters and had a small bowel movement yesterday. Continued on conservative management at this time. Patient is complaining of right shoulder pain yesterday and had x-rays showed no acute process. Patient also complaining of tenderness and pain over the right clavicle mainly at the sternoclavicular junction. Contacted orthopedic surgery for evaluation. Otherwise patient is afebrile. Patient was also found to have elevated procalcitonin level at 6.46. Otherwise patient is afebrile and no leukocytosis. Blood cultures growing strep recollected and repeat cultures have been negative. ID evaluation. 11/22/2020 Patient is seen and evaluated in follow-up continues to have some back pain although slightly improved. Orthopedics evaluated the patient and patient will be following up outpatient with [facility] along with Dr. Gudino in the outpatient setting. Patient continues to have constipation and abdominal discomfort and will have a fleets enema per nursing staff patient was having some difficulty with urination and will continue with bladder scan to monitor for any retention. Infectious disease consulted and currently pending at this time. A.m. labs currently still pending for repeat pro-calcitonin, BMP, CBC. Review of Systems CONSTITUTIONAL: No fever, no malaise, no fatigue. HEENT: No recent visual problems or hearing problems. Denied any sore throat. CARDIOVASCULAR: No orthopnea, PND, no palpitations, no syncope. PULMONARY: No shortness of breath, no cough, no hemoptysis. GASTROINTESTINAL: No diarrhea, no nausea, no vomiting, reports abdominal discomfort and constipation. Normoactive bowel sounds. NEUROLOGICAL: No headaches, no weakness, no numbness. Objective - Vital Signs Vital signs: Vital Signs Temp 97.7 F 11/22/20 07:30 Pulse 70 11/22/20 07:30 Resp 16 11/22/20 07:30 BP 141/82 11/22/20 07:30 Pulse Ox 96 11/22/20 07:30 Intake & Output 11/21/20 11/22/20 11/22/20 18:59 06:59 18:59 Other: Voiding Method Toilet Toilet # Voids 4 2 - Exam GENERAL: The patient is alert and oriented x3, not in any acute distress. Well developed, well nourished. HEENT: Pupils are round and equally reacting to light. EOMI. No scleral icterus. No conjunctival pallor. Normocephalic, atraumatic. No pharyngeal erythema. No thyromegaly. CARDIOVASCULAR: S1 and S2 present. No murmurs, rubs, or gallops. PULMONARY: Chest is clear to auscultation, no wheezing or crackles. ABDOMEN: Soft, nontender, nondistended, normoactive bowel sounds. No palpable organomegaly. MUSCULOSKELETAL: No joint swelling or deformity. Upper lumbar tenderness, tenderness over left sternoclavicular junction. EXTREMITIES: No cyanosis, clubbing, or pedal edema. right hand in a dressing, examination of the trigger finger is deferred. Limited abduction of the right arm with right shoulder tenderness, slightly improved NEUROLOGICAL: Gross neurological examination did not reveal any focal deficits. SKIN: No rashes. No petechiae - Labs CBC & Chem 7: 11/22/20 08:03 11/20/20 05:10 Labs: Abnormal Lab Results - Last 24 Hours (Table) 11/22/20 Range/Units 06:43 POC Glucose (mg/dL) 119 H (75-99) mg/dL Microbiology - Last 24 Hours (Table) 11/19/20 00:01 Urine Culture - Final Urine,Voided Staph hominis sub sp. hominis 11/19/20 22:19 Blood Culture - Preliminary Blood No Growth after 48 hours 11/19/20 03:45 Blood Culture Gram Stain - Final Blood Blood Culture - Final Strep agalactiae - (group b) Assessment and Plan Assessment: severe disc height loss at L3-4 with posterior disc osteophyte complex causing at least mild spinal canal stenosis. pain improving and no surgical intervention as per ortho, a follow-up outpatient with [facility] partial small bowel obstruction. improving. Strep agalactiae bacteremia Right hand trigger finger Right shoulder pain after blunt trauma History of Vargas's esophagus Enlarged liver Hypertension History of GERD History of diabetes mellitus GI prophylaxis: Pepcid DVT prophylaxis: Subcutaneous heparin Plan: Continue with current medications and symptomatic treatment. Patient was seen and evaluated by orthopedic surgery recommended outpatient follow-up and conservative management. Patient also seen by surgery for continued abdominal pain and partial small bowel obstruction. Patient is to receive a fleets enema today. Patient per nursing staff was reported to have difficulty in urinating and will be continuing with bladder scanning. Monitor for retention and if necessary indwelling Jett catheter. Patient's a.m. labs currently pending along with infectious disease consult. We'll continue with current medications and monitor closely. Further recommendations to follow based on the clinic course of the patient. Possible discharge in 24 hours.
[2020-11-22 16:43] LABS: Glucose,Whole Blood 132 mg/dL (75-99)
[2020-11-22 17:02] LABS: Appearance,Urine Clear (Clear); Bilirubin,Urine Negative (Negative); Blood,Urine Small (Negative); Color,Urine Light Yellow; Glucose,Urine (UA) 4+ (Negative); Ketones,Urine Trace (Negative); Leukocyte Esterase,Urine Negative (Negative); Mucus,Urine Rare /hpf; Nitrite,Urine Negative (Negative); PH, Urine 6.5 (5.0-8.0); Protein,Urine Negative (Negative); RBC,Urine 24 /hpf (0-5); Specific Gravity,Urine 1.012 (1.001-1.035); Squamous Epithelial Cell,Urine 1 /hpf (0-4); Urobilinogen,Urine <2.0 mg/dL (<2.0); WBC,Urine 2 /hpf (0-5)
[2020-11-22 18:25] LABS: African American GFR (CKD) 114.2 (60.0-200.0); Anion Gap 8.1 mmol/L (4.00-12.00); BUN/Creat Ratio 14.44 Ratio (12.00-20.00); Calcium 9.2 mg/dL (8.7-10.3); Carbon Dioxide 29.9 mmol/L (21.6-31.8); Non-African American GFR(CKD) 98.5 (60.0-200.0); Potassium 4.5 mmol/L (3.5-5.5); Uric Acid 4.9 mg/dL (3.7-8.7)
--- NOTE | 2020-11-22 23:31 | CONS ---
CONSULTATION DATE OF SERVICE: 11/22/2020 REASON FOR CONSULTATION: 1. Bacteremia. 2. UTI. HISTORY OF PRESENT ILLNESS: The patient is a 50-year-old male presenting to the ER at [facility] about 4 days ago on November 18, 2020, for evaluation of back pain. Apparently the patient started having pain in the mid thoracic back area that started after the patient shoveled snow. The patient said that initially he did not feel too much pain. After shoveling the snow he went inside, took a shower, and then drove 2-1/2 hours to get his daughter from his grandparents. On the way back he had severe pain in the mid back area. The patient described the pain to be sharp with intensity almost 10/10 and no radiation down the legs. No bowel or bladder problems. The patient was seen in the ER and was treated symptomatically, sent home, and presented back within a few hours with persistent worsening pain. The patient denies having a history of any trauma. The patient denies having any fever or any chills. On presentation to the hospital the patient did have a low-grade fever of 99.1. The patient had a normal white count. He had a CT angiogram of the chest which was negative for PE and did not show any acute abnormality. The patient did have a CT of the abdomen and pelvis completed which did not show any intraabdominal pathology; however, it did show severe disc height loss at L3-4 with posterior disc osteophyte complex causing at least minimal spinal canal stenosis, and there was also concern for possible developing partial small-bowel obstruction. However, the patient did not have any abdominal symptoms or any abdominal pain, nausea or vomiting. The patient was evaluated by General Surgery and Spine Surgery, and treatment has been mostly conservative. The patient had blood cultures drawn on admission which came back positive with Streptococcus agalactiae. The patient has been started on Rocephin. The patient did have a mildly positive UA and urine culture came back positive with Staphylococcus hominis. The patient does not have any urinary symptoms or burning or frequency. Infectious Disease was consulted for further management of antibiotic therapy. The patient is also complaining that his right middle finger locked up and he was unable to straighten it up, though he did use a splint and did have improvement since being in the hospital. REVIEW OF SYSTEMS: Positive points have been mentioned in HPI. Rest of systems negative. PAST MEDICAL HISTORY: Diabetes mellitus, gastroesophageal reflux disease, asthma, history of migraine headache. PAST SURGICAL HISTORY: Arthroscopy of right knee, right shoulder surgery and hernia repair. SOCIAL HISTORY: Denies smoking. Occasionally drinks. No drug use. FAMILY HISTORY: Father with history of cancer. ALLERGIES: IODINATED CONTRAST. MEDICATIONS: The patient is currently on Steele, vitamin C, Lipitor, Symbicort, Os-Ebenezer with D, Rocephin 1 gram daily, Flexeril, Pepcid, heparin, Dilaudid, Zestril, Narcan, Zofran and zinc sulfate. PHYSICAL EXAMINATION: Blood pressure 151/85 with a pulse of 72, temperature 98.5. He is 98% on room air. General description is a middle-aged male lying in bed in no distress. No tachypnea or accessory muscle of respiration use. HEENT: Examination shows no pallor or scleral icterus. Oral mucous membrane is dry. No pharyngeal erythema or thrush. NECK: Trachea is central. No thyromegaly. LUNGS: Unlabored breathing. Clear to auscultation anteriorly. No wheeze or crackle. HEART: S1, S2. Regular rate and rhythm. ABDOMEN: Soft. No tenderness. No guarding. No rigidity. No organomegaly. EXTREMITIES: No edema of feet. SKIN EXAMINATION: No rash or mass palpable. Neurologically the patient is awake, alert, oriented x3. Mood and affect normal. LABS: Hemoglobin is 15.5, white count 7.19, BUN of 13, creatinine 0.9. Electrolytes have been normal. Liver enzymes are normal. Procalcitonin was 6.46. Urine was mildly positive. Blood culture with Streptococcus agalactiae. DIAGNOSTIC IMPRESSION AND PLAN: Patient presented to hospital with acute intractable mid back pain in this patient with no history of any trauma. However, he does give history of shoveling snow the day before the patient's symptoms started. Now we do not have any other obvious focus for this bacteremia, and the abnormal finding on L3-4 is concerning to be the possible source of this bacteremia. The patient currently does not have any skin or soft tissue abnormality, no evidence of any pneumonia and no abnormality seen on the CT of abdomen and pelvis. Clinically doubt small bowel obstruction or ileus. PLAN: 1. Blood cultures repeat to document clearance of his bacteremia. 2. Will check a sedimentation rate and CRP. 3. Adjust antibiotic to cefazolin 2 grams q.8 hours. 4. Will obtain MRI of the lumbosacral spine to better define underlying pathology. 5. Will follow clinical condition and culture to further adjust medication if needed. Thank you for this consultation. Will follow this patient along with you. MMBRAYDEN / IJN: [id number] /
[2020-11-23] MEDS: HYDROcodone/APAP 5-325MG 1 EACH TAB PO PRN (01:06)
[2020-11-23] MEDS: HYDROmorphone 1 MG/ML 1 ML SYRINGE IVP PRN (06:17)
[2020-11-23] MEDS: SYMBICORT 80-4.5 MCG INHALER INHALATION SCH ×2 (07:44→19:54)
[2020-11-23] MEDS: ASCORBIC ACID 500 MG TAB PO SCH (08:29)
[2020-11-23] MEDS: ATORVASTATIN 20 MG TAB PO SCH (08:29)
[2020-11-23] MEDS: FAMOTIDINE 20 MG/2 ML VIAL IV SCH ×2 (08:29→21:18)
[2020-11-23] MEDS: HEPARIN SODIUM,PORCINE 5,000 UNIT/ML 1 ML VIAL SQ SCH ×2 (08:29→21:17)
[2020-11-23] MEDS ORDERED: MAGNESIUM CITRATE 296 ML BOTTLE PO ONE (09:01)
--- NOTE | 2020-11-23 09:04 | P.PN ---
Subjective Progress Note Date: 11/23/20 Principal diagnosis: Ileus Patient doing better today. Has had a small bowel movement with an enema yesterday. No bloating. Tolerating regular diet. Asking for nonnarcotic pain medications. Also asking for a stool softener. Objective - Vital Signs Vital signs: Vital Signs Temp 98.1 F 11/23/20 05:52 Pulse 85 11/23/20 05:52 Resp 17 11/23/20 05:52 BP 131/81 11/23/20 05:52 Pulse Ox 97 11/23/20 05:52 Intake & Output 11/22/20 11/23/20 11/23/20 18:59 06:59 18:59 Intake Total 526 236 Output Total 584 Balance -58 236 Intake: IV 50 ceFAZolin 2 gm In Sodium 50 Chloride 0.9% 50 ml @ 100 mls/hr IVPB Q8HR NORI Rx# :[id number] Oral 476 236 Output: Post Void Residual 584 Other: Voiding Method Toilet Toilet # Voids 1 2 # Bowel Movements 1 - Exam Abdomen: Soft, minimal distention, nontender - Labs CBC & Chem 7: 11/22/20 08:03 11/22/20 08:03 Labs: Abnormal Lab Results - Last 24 Hours (Table) 11/22/20 11/22/20 11/22/20 Range/Units 08:03 08:03 08:03 RBC 5.88 H (4.40-5.60) X 10*6/uL MCH 26.4 L (27.0-32.0) pg MCHC 31.7 L (32.0-37.0) g/dL RDW 16.2 H (11.5-14.5) % Glucose 135 H (70-110) mg/dL POC Glucose (mg/dL) (75-99) mg/dL Procalcitonin 1.40 H (0.02-0.09) ng/mL Urine Glucose (UA) (Negative) Urine Ketones (Negative) Urine Blood (Negative) Urine RBC (0-5) /hpf Urine Mucus (None) /hpf 11/22/20 11/22/20 11/22/20 Range/Units 11:32 16:37 16:41 RBC (4.40-5.60) X 10*6/uL MCH (27.0-32.0) pg MCHC (32.0-37.0) g/dL RDW (11.5-14.5) % Glucose (70-110) mg/dL POC Glucose (mg/dL) 110 H 132 H (75-99) mg/dL Procalcitonin (0.02-0.09) ng/mL Urine Glucose (UA) 4+ H (Negative) Urine Ketones Trace H (Negative) Urine Blood Small H (Negative) Urine RBC 24 H (0-5) /hpf Urine Mucus Rare H (None) /hpf Microbiology - Last 24 Hours (Table) 11/19/20 22:19 Blood Culture - Preliminary Blood No Growth after 72 hours 11/19/20 00:01 Urine Culture - Final Urine,Voided Staph hominis sub sp. hominis Assessment and Plan (1) Ileus Narrative/Plan: 50-year-old male doing better at this time. We'll try a dose of magnesium citrate today. Continue increasing activity. Discontinue narcotic medications switched to Tylenol and Motrin. Will follow. Current Visit: Yes Status: Acute Code(s): K56.7 - ILEUS, UNSPECIFIED SNOMED Code(s): 984510839
[2020-11-23] MEDS: ZINC SULFATE 220 MG CAP PO SCH (09:34)
[2020-11-23] MEDS: CALCIUM CARB-VIT D 500 MG-5 MCG TAB PO SCH ×2 (09:34→18:08)
[2020-11-23] MEDS: lisinopriL 10 MG TAB PO SCH (09:34)
[2020-11-23] MEDS: IBUPROFEN 400 MG TAB PO PRN ×3 (09:39→19:22)
--- NOTE | 2020-11-23 14:14 | MR ---
EXAMINATION TYPE: MR lumbar spine wo/w con DATE OF EXAM: 11/23/2020 COMPARISON: None HISTORY: LBP, abnormal CT, evaluate for discitis/osteomyelitis CONTRAST: Standard multiplanar, multisequence MRI departmental protocol utilizing 10 mL intravenous Gadavist ga dolinium contrast. Lumbar vertebra have normal alignment. There is disc space narrowing from L3 to S1. There is posterio r disc herniations from L2 to S1. Largest disc herniation is at L3-4 centrally and towards the left s gilberto. The lumbar neural foramina are fairly well-maintained. Disc herniation at L4-5 is towards the ri ght side. L5-S1 disc herniation is midline. The sacroiliac joints are intact. On the T2 images there is increased signal in the disc space at L3-4. There is some mild reactive juan ma on both sides of the L3-4 disc. Contrast images show some mild enhancement in the bone on both kristin es of the posterior aspect of the L3-4 disc. There is no lumbar paraspinal mass. The sacroiliac joints are intact. IMPRESSION: Multilevel posterior disc herniation as above with resultant minimal spinal stenosis at L3-4 and L4-5 . Reactive changes and enhancement and increased fluid at the L3-4 disc suggestive of discitis. No evid ence of paraspinal abscess.
--- NOTE | 2020-11-23 17:08 | PN ---
PROGRESS NOTE DATE OF SERVICE: 11/23/2020 REASON FOR FOLLOWUP: Streptococcus agalactiae bacteremia. INTERVAL HISTORY: The patient is currently afebrile. The patient denies having any chest pain. No shortness of breath. No cough. No nausea. No vomiting. No abdominal pain or diarrhea. Back pain is currently controlled. PHYSICAL EXAMINATION: Blood pressure 130/76, pulse of 69, temperature 98. He is 95% on room air. General description: The patient is a middle-aged male lying in bed in no distress. Respiratory system: Unlabored breathing. Clear to auscultation anteriorly. Heart S1, S2. Regular rate and rhythm. ABDOMEN: Soft, no tenderness. LABS: Hemoglobin is 15.4, white count 7.19, creatinine 0.9. Blood culture repeat is negative. DIAGNOSTIC IMPRESSION AND PLAN: Patient with Streptococcus agalactiae bacteremia with evidence of diskitis on the MRI at the L3-4 level. Followup blood culture negative. The patient will need a PICC line for outpatient antibiotic therapy. Currently on cefazolin to continue and monitor clinical course closely. MMODL / IJN: [id number] /
[2020-11-23] MEDS: ACETAMINOPHEN TAB 325 MG TAB PO PRN (21:18)
[2020-11-23] MEDS: CYCLOBENZAPRINE 10 MG TAB PO PRN (21:18)
[2020-11-24] MEDS: IBUPROFEN 400 MG TAB PO PRN ×3 (07:04→19:43)
[2020-11-24] MEDS: CALCIUM CARB-VIT D 500 MG-5 MCG TAB PO SCH ×2 (07:04→17:10)
[2020-11-24] MEDS: SYMBICORT 80-4.5 MCG INHALER INHALATION SCH ×2 (07:52→20:34)
[2020-11-24] MEDS: HEPARIN SODIUM,PORCINE 5,000 UNIT/ML 1 ML VIAL SQ SCH ×2 (09:23→21:51)
[2020-11-24] MEDS: FAMOTIDINE 20 MG/2 ML VIAL IV SCH ×2 (09:23→21:51)
[2020-11-24] MEDS: ATORVASTATIN 20 MG TAB PO SCH (09:24)
[2020-11-24] MEDS: lisinopriL 10 MG TAB PO SCH (09:24)
[2020-11-24] MEDS: ASCORBIC ACID 500 MG TAB PO SCH (09:24)
[2020-11-24] MEDS: polyethylene glycoL 3350 17 GM POWD.PACK PO SCH (09:24)
[2020-11-24] MEDS: ZINC SULFATE 220 MG CAP PO SCH (09:25)
--- NOTE | 2020-11-24 09:32 | P.PN ---
Subjective Progress Note Date: 11/24/20 Principal diagnosis: Ileus Patient doing well today. Had multiple loose stools yesterday after the magnesium citrate. Denies abdominal pain. No nausea or vomiting. Tolerating diet. Objective - Vital Signs Vital signs: Vital Signs Temp 97.7 F 11/24/20 04:39 Pulse 74 11/24/20 04:39 Resp 14 11/24/20 04:39 BP 124/76 11/24/20 04:39 Pulse Ox 94 L 11/24/20 04:39 Intake & Output 11/23/20 11/24/20 11/24/20 18:59 06:59 18:59 Intake Total 832 880 Balance 832 880 Intake: IV 100 ceFAZolin 2 gm In Sodium 100 Chloride 0.9% 50 ml @ 100 mls/hr IVPB Q8HR NORI Rx# :[id number] Oral 832 780 Other: Voiding Method Toilet # Voids 2 3 - Exam Abdomen: Soft, nontender, nondistended - Labs CBC & Chem 7: 11/22/20 08:03 11/22/20 08:03 Labs: Abnormal Lab Results - Last 24 Hours (Table) 11/23/20 Range/Units 07:04 ESR 32 H (0-20) mm/Hr Microbiology - Last 24 Hours (Table) 11/19/20 22:19 Blood Culture - Preliminary Blood No Growth after 96 hours 11/22/20 12:31 Blood Culture - Preliminary Blood No Growth after 24 hours Assessment and Plan (1) Ileus Narrative/Plan: 50-year-old male with ileus likely secondary to lumbar spine inflammation. Doing better at this time. Continue diet as tolerated. Current Visit: Yes Status: Acute Code(s): K56.7 - ILEUS, UNSPECIFIED SNOMED Code(s): 987593938
[2020-11-24] MEDS: ACETAMINOPHEN TAB 325 MG TAB PO PRN ×2 (16:23→21:51)
--- NOTE | 2020-11-24 18:53 | PN ---
PROGRESS NOTE DATE OF SERVICE: 11/24/2020 REASON FOR FOLLOWUP: Streptococcus agalactiae bacteremia and discitis. INTERVAL HISTORY: Patient is currently afebrile. The patient is breathing comfortably. The patient denies having any chest pain or shortness of breath or cough. No abdominal pain and mentioning back pain has improved. No diarrhea. PHYSICAL EXAMINATION: Blood pressure 132/85 with a pulse of 86, temperature 97.5. He is 98% on room air. GENERAL DESCRIPTION is a middle-aged male lying in bed in no distress. RESPIRATORY SYSTEM: Unlabored breathing. Clear to auscultation anteriorly. HEART: S1-S2 regular rate and rhythm. ABDOMEN: Soft, no tenderness. EXTREMITIES: No edema of the feet. LABS: Hemoglobin is 15.5, white count 7.1. BUN of 13, creatinine 0.9. Blood culture repeat is negative times two. DIAGNOSTIC IMPRESSION AND PLAN: Patient with streptococcal agalactiae bacteremia, source likely L3-4 discitis as seen on the MRI. No evidence of any paraspinal abscess. The patient is on cefazolin. He will get a PICC line for outpatient antibiotic therapy, either cefazolin or Rocephin depending on his coverage with weekly monitor of his blood work. Questions and concerns were answered. MMODL / IJN: [id number] /
[2020-11-24] MEDS: CYCLOBENZAPRINE 10 MG TAB PO PRN (21:51)
--- NOTE | 2020-11-24 22:51 | P.PN ---
Subjective Progress Note Date: 11/23/20 Principal diagnosis: Back pain Bacteremia This is a pleasant 50 years old male with past medical history of asthma, diabetes mellitus, GERD and Vargas's esophagus and migraine. Presents because of right hand middle trigger finger which is supposed to follow-up with an orthopedic at [facility] orthopedic clinic on this coming however the finger got locked, harder to straighten and painful significant emergency room and was treated temporarily and sent home however he started developing lower back pain about 8/10 in severity, dull to 45/10 in severity increased with movement, pain mainly in the upper lumbar area nonradiating to the legs. Patient denies weakness or numbness, no urine or bowel incontinence. 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 On admission there was suspicion of partial bowel obstruction on the CAT scan however patient denies abdominal pain, no nausea or vomiting. Last bowel movement was on Wednesday He denies smoking, alcohol or illicit drugs Vitas looks stable. Labs including CBC, BMP, INR, liver enzymes are unremarkable. Urine looks concentrated sample. Coronavirus not detected. CT of the chest, not evaluate pulmonary artery was due to contrast timing, no acute findings. CT of the abdomen and pelvis with contrast: Enlarged liver. Partial small bowel obstruction and severe disc height loss at L3-4 with posterior disc osteophyte complex causing at least mild spinal canal stenosis. EKG showing normal sinus rhythm at [address]-T changes. In the emergency room patient received pain medication, IV fluids and continue with ceftriaxone on normal saline at 75 mL/h. 11/20/2020 Patient is still complaining from pain and the upper part of the lumbar spine, x-rays showing severe loss of the height of the intervertebral disc at L3 to L4. However patient denies any weakness or numbness. No loss of control of the urine or bowel. Orthopedic team were consulted and also for his right trigger finger which she supposed to follow with [facility] orthopedic as an outpatient upon discharge He was trying to pull himself up going to restroom while he was in the emergency room and he injured his right shoulder associated with pain around the deltoid area and limitation of active right arm abduction, more range of movement with passive abduction. No deformity. We will order right shoulder x-ray. General surgery team R following the case for possible partial bowel obstruction among patient with no abdominal pain or nausea or vomiting, however he has constipation but he is passing gas. He is currently nothing by mouth by surgical team Continue with pain management Labs are pending and are going to follow up. Hold physical therapy evaluation to patient seen by orthopedic team 11/21/2020 Patient is currently lying in the bed awake alert and oriented x3. Denied any complaints of abdominal pain. Lower back pain is improving as well. Patient had CT of the abdomen pelvis was done showed severe disc height loss at L3-L4 with posterior disc osteophyte complex causing mild spinal canal stenosis. Shelton aubrie was seen by orthopedic surgery and recommends conservative management at this time. Back pain could related to small bowel obstruction. Otherwise patient is pleasant platters and had a small bowel movement yesterday. Continued on conservative management at this time. Patient is complaining of right shoulder pain yesterday and had x-rays showed no acute process. Patient also complaining of tenderness and pain over the right clavicle mainly at the sternoclavicular junction. Contacted orthopedic surgery for evaluation. Otherwise patient is afebrile. Patient was also found to have elevated procalcitonin level at 6.46. Otherwise patient is afebrile and no leukocytosis. Blood cultures growing strep recollected and repeat cultures have been negative. ID evaluation. 11/22/2020 Patient is seen and evaluated in follow-up continues to have some back pain although slightly improved. Orthopedics evaluated the patient and patient will be following up outpatient with [facility] surgical services along with Dr. Gudino in the outpatient setting. Patient continues to have constipation and abdominal discomfort and will have a fleets enema per nursing staff patient was having some difficulty with urination and will continue with bladder scan to monitor for any retention. Infectious disease consulted and currently pending at this time. A.m. labs currently still pending for repeat pro-calcitonin, BMP, CBC. 11/23/2020 Patient is lying in the bed comfortably. Patient states that back pain is better. No complaints of fever or chills. Repeat blood cultures have been negative. Initial blood cultures grew strep agalactiae. Source unknown at this time. MRI of the lumbar spine was ordered as per ID recommendations to rule out osteomyelitis versus discitis.. Patient is improving symptomatically. Pro calcitonin level is trending down. Patient had MRI done today. Awaiting report. Final recommendations depends on MRI findings. Review of Systems CONSTITUTIONAL: No fever, no malaise, no fatigue. HEENT: No recent visual problems or hearing problems. Denied any sore throat. CARDIOVASCULAR: No orthopnea, PND, no palpitations, no syncope. PULMONARY: No shortness of breath, no cough, no hemoptysis. GASTROINTESTINAL: No diarrhea, no nausea, no vomiting, no abdominal pain. Normoactive bowel sounds. NEUROLOGICAL: No headaches, no weakness, no numbness. Objective - Vital Signs Vital signs: Vital Signs Temp 97.7 F 11/23/20 20:47 Pulse 74 11/23/20 20:47 Resp 16 11/23/20 20:47 BP 137/80 11/23/20 20:47 Pulse Ox 95 11/23/20 20:47 Intake & Output 11/23/20 11/23/20 11/24/20 06:59 18:59 06:59 Intake Total 832 Balance 832 Intake: Oral 832 Other: Voiding Method Toilet Toilet # Voids 2 2 - Exam - Exam GENERAL: The patient is alert and oriented x3, not in any acute distress. Well developed, well nourished. HEENT: Pupils are round and equally reacting to light. EOMI. No scleral icterus. No conjunctival pallor. Normocephalic, atraumatic. No pharyngeal erythema. No thyromegaly. CARDIOVASCULAR: S1 and S2 present. No murmurs, rubs, or gallops. PULMONARY: Chest is clear to auscultation, no wheezing or crackles. ABDOMEN: Soft, nontender, nondistended, normoactive bowel sounds. No palpable organomegaly. -MUSCULOSKELETAL: No joint swelling or deformity. Upper lumbar tenderness, tenderness over left sternoclavicular junction.Able to lift his right upper extremity above shoulder. -EXTREMITIES: No cyanosis, clubbing, or pedal edema. Her right hand splint for trigger finger. NEUROLOGICAL: Gross neurological examination did not reveal any focal deficits. SKIN: No rashes. No petechiae - Labs CBC & Chem 7: 11/22/20 08:03 11/22/20 08:03 Labs: Abnormal Lab Results - Last 24 Hours (Table) 11/23/20 Range/Units 07:04 ESR 32 H (0-20) mm/Hr Microbiology - Last 24 Hours (Table) 11/22/20 12:31 Blood Culture - Preliminary Blood No Growth after 24 hours 11/19/20 22:19 Blood Culture - Preliminary Blood No Growth after 72 hours Assessment and Plan Assessment: severe disc height loss at L3-4 with posterior disc osteophyte complex causing at least mild spinal canal stenosis. pain improving and no surgical intervention as per ortho, partial small bowel obstruction.resolved. Strep agalactiae bacteremia Right hand trigger finger Right shoulder pain after blunt trauma History of Vargas's esophagus Enlarged liver Hypertension History of GERD History of diabetes mellitus Plan: this is a pleasant 50 years old male who presents with L3-4 intervertebral disc collapse seen by orthopedic team for back pain and trigger finger pain management. right shoulder x-ray showed no acute fx or dislocation. MRI of the lumbar spine was ordered to rule out infection due to bacteremia. Patient was started oral diet and advance as tolerated. Started calcium and vitamin D Labs and medication were reviewed.. Continue same treatment. Continue with symptomatic treatment. Resume home medication. Monitor lytes and vitals. DVT and GI prophylaxis. Further recommendations depends on the clinical course of the patient DVT prophylaxis: Subcutaneous heparin GI Prophylaxis: Pepcid PT/OT: Time with Patient: Greater than 30
--- NOTE | 2020-11-24 22:55 | P.PN ---
Subjective Progress Note Date: 11/24/20 Principal diagnosis: Back pain/ Discitis Bacteremia SBO This is a pleasant 50 years old male with past medical history of asthma, diabetes mellitus, GERD and Vargas's esophagus and migraine. Presents because of right hand middle trigger finger which is supposed to follow-up with an orthopedic at [facility] orthopedic clinic on this coming however the finger got locked, harder to straighten and painful significant emergency room and was treated temporarily and sent home however he started developing lower back pain about 8/10 in severity, dull to 45/10 in severity increased with movement, pain mainly in the upper lumbar area nonradiating to the legs. Patient denies weakness or numbness, no urine or bowel incontinence. 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 On admission there was suspicion of partial bowel obstruction on the CAT scan however patient denies abdominal pain, no nausea or vomiting. Last bowel movement was on Wednesday He denies smoking, alcohol or illicit drugs Vitas looks stable. Labs including CBC, BMP, INR, liver enzymes are unremarkable. Urine looks concentrated sample. Coronavirus not detected. CT of the chest, not evaluate pulmonary artery was due to contrast timing, no acute findings. CT of the abdomen and pelvis with contrast: Enlarged liver. Partial small bowel obstruction and severe disc height loss at L3-4 with posterior disc osteophyte complex causing at least mild spinal canal stenosis. EKG showing normal sinus rhythm at [address]-T changes. In the emergency room patient received pain medication, IV fluids and continue with ceftriaxone on normal saline at 75 mL/h. 11/20/2020 Patient is still complaining from pain and the upper part of the lumbar spine, x-rays showing severe loss of the height of the intervertebral disc at L3 to L4. However patient denies any weakness or numbness. No loss of control of the urine or bowel. Orthopedic team were consulted and also for his right trigger finger which she supposed to follow with [facility] orthopedic as an outpatient upon discharge He was trying to pull himself up going to restroom while he was in the emergency room and he injured his right shoulder associated with pain around the deltoid area and limitation of active right arm abduction, more range of movement with passive abduction. No deformity. We will order right shoulder x-ray. General surgery team R following the case for possible partial bowel obstruction among patient with no abdominal pain or nausea or vomiting, however he has constipation but he is passing gas. He is currently nothing by mouth by surgical team Continue with pain management Labs are pending and are going to follow up. Hold physical therapy evaluation to patient seen by orthopedic team 11/21/2020 Patient is currently lying in the bed awake alert and oriented x3. Denied any complaints of abdominal pain. Lower back pain is improving as well. Patient had CT of the abdomen pelvis was done showed severe disc height loss at L3-L4 with posterior disc osteophyte complex causing mild spinal canal stenosis. Patient was seen by orthopedic surgery and recommends conservative management at this time. Back pain could related to small bowel obstruction. Otherwise patient is pleasant platters and had a small bowel movement yesterday. Continued on conservative management at this time. Patient is complaining of right shoulder pain yesterday and had x-rays showed no acute process. Patient also complaining of tenderness and pain over the right clavicle mainly at the sternoclavicular junction. Contacted orthopedic surgery for evaluation. Otherwise patient is afebrile. Patient was also found to have elevated procalcitonin level at 6.46. Otherwise patient is afebrile and no leukocytosis. Blood cultures growing strep recollected and repeat cultures have been negative. ID evaluation. 11/22/2020 Patient is seen and evaluated in follow-up continues to have some back pain although slightly improved. Orthopedics evaluated the patient and patient will be following up outpatient with [facility] surgical services along with Dr. Gudino in the outpatient setting. Patient continues to have constipation and abdominal discomfort and will have a fleets enema per nursing staff patient was having some difficulty with urination and will continue with bladder scan to monitor for any retention. Infectious disease consulted and currently pending at this time. A.m. labs currently still pending for repeat pro-calcitonin, BMP, CBC. 11/23/2020 Patient is lying in the bed comfortably. Patient states that back pain is better. No complaints of fever or chills. Repeat blood cultures have been negative. Initial blood cultures grew strep agalactiae. Source unknown at this time. MRI of the lumbar spine was ordered as per ID recommendations to rule out osteomyelitis versus discitis.. Patient is improving symptomatically. Pro calcitonin level is trending down. Patient had MRI done today. Awaiting report. Final recommendations depends on MRI findings. 11/24/2020 Patient is currently sitting in the chair comfortably. Patient states that his back pain is better but still having some discomfort on and off. MRI of the lumbar spine showed discitis. Patient is being continued on cefazolin ID is on board. Patient may need IV antibiotic course. Otherwise patient is tolerating oral diet and did have evolvement and partial bowel obstruction was resolved. General surgery is on board. Advance diet as tolerated. Patient has been afebrile. Repeat blood cultures are negative. No chest pain or shortness of breath. No cough or sputum production. No dysuria or hematuria. Anticipate discharge with final antibiotic recommendations as per ID. Review of Systems CONSTITUTIONAL: No fever, no malaise, no fatigue. HEENT: No recent visual problems or hearing problems. Denied any sore throat. CARDIOVASCULAR: No orthopnea, PND, no palpitations, no syncope. PULMONARY: No shortness of breath, no cough, no hemoptysis. GASTROINTESTINAL: No diarrhea, no nausea, no vomiting, no abdominal pain. Normoactive bowel sounds. NEUROLOGICAL: No headaches, no weakness, no numbness. Objective - Vital Signs Vital signs: Vital Signs Temp 97.7 F 11/24/20 04:39 Pulse 74 11/24/20 04:39 Resp 14 11/24/20 04:39 BP 124/76 11/24/20 04:39 Pulse Ox 94 L 11/24/20 04:39 Intake & Output 11/23/20 11/24/20 11/24/20 18:59 06:59 18:59 Intake Total 832 880 Balance 832 880 Intake: IV 100 ceFAZolin 2 gm In Sodium 100 Chloride 0.9% 50 ml @ 100 mls/hr IVPB Q8HR [facility] Rx# :[id number] Oral 832 780 Other: Voiding Method Toilet # Voids 2 3 - Exam - Exam GENERAL: The patient is alert and oriented x3, not in any acute distress. Well developed, well nourished. HEENT: Pupils are round and equally reacting to light. EOMI. No scleral icterus. No conjunctival pallor. Normocephalic, atraumatic. No pharyngeal erythema. No thyromegaly. CARDIOVASCULAR: S1 and S2 present. No murmurs, rubs, or gallops. PULMONARY: Chest is clear to auscultation, no wheezing or crackles. ABDOMEN: Soft, nontender, nondistended, normoactive bowel sounds. No palpable organomegaly. -MUSCULOSKELETAL: No joint swelling or deformity. Upper lumbar tenderness, tenderness over left sternoclavicular junction.Able to lift his right upper extremity above shoulder. -EXTREMITIES: No cyanosis, clubbing, or pedal edema. Her right hand splint for trigger finger. NEUROLOGICAL: Gross neurological examination did not reveal any focal deficits. SKIN: No rashes. No petechiae - Labs CBC & Chem 7: 11/22/20 08:03 11/22/20 08:03 Labs: Microbiology - Last 24 Hours (Table) 11/19/20 22:19 Blood Culture - Preliminary Blood No Growth after 96 hours 11/22/20 12:31 Blood Culture - Preliminary Blood No Growth after 24 hours Assessment and Plan Assessment: severe disc height loss at L3-4 with posterior disc osteophyte complex causing at least mild spinal canal stenosis. pain improving and no surgical intervention as per ortho, partial small bowel obstruction.resolved. Strep agalactiae bacteremia L3-L4 discitis as per MRI. Right hand trigger finger . s/p splint. seen by ortho. Right shoulder pain after blunt trauma. improved. X ray negative. History of Vargas's esophagus Enlarged liver Hypertension History of GERD History of diabetes mellitus Plan: this is a pleasant 50 years old male who presents with L3-4 intervertebral disc collapse seen by orthopedic team for back pain and trigger finger pain management. right shoulder x-ray showed no acute fx or dislocation. MRI of the lumbar spine was ordered to rule out infection due to bacteremia. Patient was started oral diet and advance as tolerated. Started calcium and vitamin D Labs and medication were reviewed.. Continue same treatment. Continue with symptomatic treatment. Resume home medication. Monitor lytes and vitals. DVT and GI prophylaxis. Further recommendations depends on the clinical course of the patient DVT prophylaxis: Subcutaneous heparin GI Prophylaxis: Pepcid PT/OT: Time with Patient: Greater than 30
[2020-11-25] MEDS: CALCIUM CARB-VIT D 500 MG-5 MCG TAB PO SCH ×2 (07:35→18:26)
[2020-11-25] MEDS: lisinopriL 10 MG TAB PO SCH (07:35)
[2020-11-25] MEDS: ATORVASTATIN 20 MG TAB PO SCH (07:35)
[2020-11-25] MEDS: ASCORBIC ACID 500 MG TAB PO SCH (07:35)
[2020-11-25] MEDS: HEPARIN SODIUM,PORCINE 5,000 UNIT/ML 1 ML VIAL SQ SCH (07:35)
[2020-11-25] MEDS: polyethylene glycoL 3350 17 GM POWD.PACK PO SCH (07:36)
[2020-11-25] MEDS: FAMOTIDINE 20 MG/2 ML VIAL IV SCH (07:36)
[2020-11-25] MEDS: IBUPROFEN 400 MG TAB PO PRN (07:43)
[2020-11-25] MEDS: SYMBICORT 80-4.5 MCG INHALER INHALATION SCH (07:51)
[2020-11-25 09:16] LABS: Basophils # (A) 0.04 X 10*3/uL (0.00-0.10); Basophils % (A) 0.7 %; Eosinophils % (A) 3.3 %; HCT 46.8 % (39.6-50.0); HGB 14.4 g/dL (13.0-17.0); Lymphocytes # (A) 1.71 X 10*3/uL (0.90-5.00); Lymphocytes % (A) 28.1 %; MCH 25.8 pg (27.0-32.0); MCHC 30.8 g/dL (32.0-37.0); MCV 83.9 fL (80.0-97.0); Mean Platelet Volume 9.6 fL (9.5-12.2); Monocytes # (A) 0.57 X 10*3/uL (0.20-1.00); Monocytes % (A) 9.4 %; Neutrophils % (A) 57.5 %; Platelet Count 317 X 10*3/uL (140-440); RBC 5.58 X 10*6/uL (4.40-5.60); RDW 15.8 % (11.5-14.5); WBC 6.08 X 10*3/uL (4.50-10.00)
[2020-11-25 09:29] LABS: African American GFR (CKD) 119.9 (60.0-200.0); Anion Gap 7.5 mmol/L (4.00-12.00); BUN/Creat Ratio 17.5 Ratio (12.00-20.00); Calcium 9.1 mg/dL (8.7-10.3); Carbon Dioxide 29.5 mmol/L (21.6-31.8); Non-African American GFR(CKD) 103.4 (60.0-200.0); Potassium 4.8 mmol/L (3.5-5.5)
[2020-11-25] MEDS: ZINC SULFATE 220 MG CAP PO SCH (11:03)
--- NOTE | 2020-11-25 11:31 | P.PN ---
Subjective Progress Note Date: 11/25/20 CHIEF COMPLAINT: Back pain HISTORY OF PRESENT ILLNESS: Patient seen and examined with Dr. Gudino. Jasmina ent is being followed for partial small bowel obstruction. He denies any abdominal pain. Patient reporting having bowel movements. He is tolerating his regular diet. He did have a lumbar spine MRI that did show discitis at L3 to L4. He is followed by infectious disease. And they're awaiting insurance authorization for IV antibiotics. PHYSICAL EXAM: VITAL SIGNS: Reviewed. GENERAL: Well-developed in no acute distress. HEENT: No sclera icterus. Extraocular movements grossly intact. Moist buccal mucosa. Head is atraumatic, normocephalic. ABDOMEN: Soft. Nondistended. Nontender. NEUROLOGIC: Alert and oriented. Cranial nerves II through XII grossly intact. ASSESSMENT: 1. Partial small bowel obstruction versus ileus likely secondary to lumbar spine inflammation. Resolved 2. Discitis L3 to L4 PLAN: -Continue regular diet -Encourage patient to ambulate -No surgical intervention planned -Patient can be discharge from surgical standpoint when cleared medically -Antibiotics per ID Physician Painter Airbrush note has been reviewed by physician. Signing provider agrees with the documented findings, assessment, and plan of care. Objective - Vital Signs Vital signs: Vital Signs Temp 97.6 F 11/25/20 05:00 Pulse 68 11/25/20 05:00 Resp 16 11/25/20 05:00 BP 129/79 11/25/20 05:00 Pulse Ox 96 11/25/20 05:00 Intake & Output 11/24/20 11/25/20 11/25/20 18:59 06:59 18:59 Intake Total 720 Balance 720 Intake: Oral 720 Other: Voiding Method Toilet Toilet # Voids 1 3 - Labs CBC & Chem 7: 11/25/20 05:46 11/25/20 05:46 Labs: Abnormal Lab Results - Last 24 Hours (Table) 11/25/20 11/25/20 Range/Units 05:46 05:46 MCH 25.8 L (27.0-32.0) pg MCHC 30.8 L (32.0-37.0) g/dL RDW 15.8 H (11.5-14.5) % Immature Gran # 0.06 H (0.00-0.04) X 10*3/uL Glucose 123 H (70-110) mg/dL Microbiology - Last 24 Hours (Table) 11/19/20 22:19 Blood Culture - Preliminary Blood No Growth after 120 hours 11/22/20 12:31 Blood Culture - Preliminary Blood No Growth after 48 hours
[2020-11-25 11:59] VITALS: BP 132/79; PULSE 81; RESP 18; TEMP 98.2
--- NOTE | 2020-11-25 15:29 | IR ---
EXAMINATION TYPE: IR cvc insert >=5 years DATE OF EXAM: 11/25/2020 COMPARISON: NONE CLINICAL HISTORY: Infection Needs long-term intravenous access for antibiotics. PROCEDURE: Hand hygiene obtained with soap and water and alcohol-based hand rub. After informed consent, the skin overlying the right basilic vein was localized with ultrasound and n oted to be compressible and patent. An ultrasound image was obtained and submitted on the patient's chart. The overlying skin was prepped and draped and Lidocaine was used for local anesthesia. A ski n seema was made with a scalpel. Access was gained to the vein under ultrasound guidance with a 21 ga uge needle and a 0.018 inch wire was advanced. Access site was dilated with Peel-Away sheath and cat heter tailored to the appropriate length and advanced such that the distal tip is at the cavoatrial j unction. Spot image was obtained verifying placement. Catheter was fixed to the skin and a sterile dressing was placed following hemostasis. Catheter was aspirated and flushed with saline. Patient w as discharged in stable condition without complication. Maximal barrier technique is utilized. Ultra sound image is documented on the chart. Ultrasound used with sterile technique. Fluoro time and fluoroscopic images submitted to document procedure: 135 intraoperative C-arm images, 0.8 minutes fluoroscopy time IMPRESSION: STATUS POST ULTRASOUND AND FLUOROSCOPIC GUIDED PICC LINE PLACEMENT, READY FOR USE. THIS PROCEDURE WAS PERFORMED BY THE UNDERSIGNED.
--- NOTE | 2020-11-25 17:37 | PN ---
PROGRESS NOTE DATE OF SERVICE: 11/25/2020 REASON FOR FOLLOWUP: Streptococcal bacteremia secondary to L3-4 diskitis. INTERVAL HISTORY: The patient is currently afebrile. The patient is breathing comfortably. The patient denies having any chest pain, shortness of breath or cough. No abdominal pain or diarrhea. PHYSICAL EXAMINATION: Blood pressure is 132/79 with pulse of 81, temperature 98.2. He is 98% on room air. General description is a middle-aged male lying in bed in no distress. RESPIRATORY SYSTEM: Unlabored breathing. Clear to auscultation anteriorly. HEART: S1, S2. Regular rate and rhythm. ABDOMEN: Soft. No tenderness. LABS: Hemoglobin is 14.4, white count 6.08. Sed rate of 32. DIAGNOSTIC IMPRESSION AND PLAN: Patient with Streptococcus agalactiae bacteremia. Source likely L3-4 diskitis and seen on MRI. Patient's follow-up blood culture is negative. He got a PICC line. Plan is for a total of 6 weeks of cefazolin 2 grams q.8 hours and close outpatient followup. MMODL / IJN: [id number] /
[2020-11-25] MEDS ORDERED: FAMOTIDINE 20 MG TAB PO SCH (21:00)
--- NOTE | 2020-11-26 09:33 | CDI ---
Documentation Clarification Form Date: 11/26/20 From: Mariama Diggs Phone: If you have a question about this query, please contact Janell Jackson, Enterprise Sales Executive at [phone] between 8am and 5pm. Admit Date: 11/19/2020 02:55:00 AM Patient Name: Nathan Oreilly Visit Number: [id number] Discharge Date: 11/25/2020 06:53:00 PM ATTENTION: The Clinical Documentation Specialists (CDI) and [facility] Coding Staff appreciate your assistance in clarifying documentation. Please respond to the clarification below the line at the bottom and electronically sign. The CDI & [facility] Coding staff will review the response and follow-up if needed. Please note: Queries are made part of the Legal Health Record. If you have any questions, please contact the author of this message via ITS. Dr. Dilia Rivera, Bacteremia documented in PNs 11/21, 11/22, 11/23, 11/24 & 11/25. Patient history/risk factors: ileus, UTI, DM, lumbar spinal stenosis, HTN, DM Clinical Indicators: Patient with Streptococcus agalactiae bacteremia with evidence of diskitis on the MRI at the L3-4 level. Followup blood culture negative. WBC: 9.8, 7.19, 6.08 Left Shift: 87, 58.5, 57.5 Blood Culture: Strep agalactiae ID Consult: No obvious focus for this bacteremia, and the abnormal finding on L3-4 is concerning to be the source of this bacteremia. Treatment: PICC line, IV Kefzol Bacteremia is considered a lab finding, present on admission. Please clarify if that lab finding is clinical indicator of a more definitive medical diagnosis such as: Sepsis, present on admission Sepsis, not present on admission Infectious Process, please specify: Other, please specify Unable to determine Sepsis, present on admission MTDD
--- NOTE | 2020-11-26 16:35 | P.DS ---
Providers Date of admission: 11/19/20 02:55 Expected date of discharge: 11/25/20 Attending physician: Bean Haas Consults: 11/19/20 02:58 Consult Physician Routine Consulting Provider: Michael Gudino Consult Reason/Comments: Partial small bowel obstruction Do you want consulting provider notified?: Yes 11/19/20 12:01 Consult Physician Urgent Consulting Provider: Brie Aleman Consult Reason/Comments: severe disc dis at L3-4, and rigt middle finger, Right shoulder/ Clavical Do you want consulting provider notified?: Yes 11/21/20 23:29 Consult Physician Routine Consulting Provider: Lolly John Consult Reason/Comments: Bacteremia Do you want consulting provider notified?: Yes, Notify in am Primary care physician: Chava Mclaughlin MD Hospital Course: Final Diagnosis severe disc height loss at L3-4 with posterior disc osteophyte complex causing at least mild spinal canal stenosis partial small bowel obstruction.resolved. L3-L4 discitis as per MRI. Strep agalactiae bacteremia with sepsis, present on admission, secondary to above Right hand trigger finger . s/p splint. Right shoulder pain after blunt trauma. improved. X ray negative. History of Vargas's esophagus Enlarged liver Hypertension History of GERD History of diabetes mellitus Discharge disposition Patient is being discharged in a stable condition with guarded prognosis to home. Patient will follow-up with Dr. Regino Mclaughlin in the outpatient setting upon discharge. Patient also instructed to follow-up with infectious disease and yaneth beltrán along with [facility]. Patient will continue with IV cefazolin per infectious disease recommendations. Total time taken is greater than 35 minutes. Hospital course Back pain/ Discitis Bacteremia SBO This is a pleasant 50 years old male with past medical history of asthma, diabetes mellitus, GERD and Vargas's esophagus and migraine. Presents because of right hand middle trigger finger which is supposed to follow-up with an orthopedic at [facility] orthopedic clinic on this coming however the finger got locked, harder to straighten and painful significant emergency room and was treated temporarily and sent home however he started developing lower back pain about 8/10 in severity, dull to 45/10 in severity increased with movement, pain mainly in the upper lumbar area nonradiating to the legs. Patient denies weakness or numbness, no urine or bowel incontinence. 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 On admission there was suspicion of partial bowel obstruction on the CAT scan however patient denies abdominal pain, no nausea or vomiting. Last bowel movement was on Wednesday He denies smoking, alcohol or illicit drugs Vitas looks stable. Labs including CBC, BMP, INR, liver enzymes are unremarkable. Urine looks concentrated sample. Coronavirus not detected. CT of the chest, not evaluate pulmonary artery was due to contrast timing, no acute findings. CT of the abdomen and pelvis with contrast: Enlarged liver. Partial small bowel obstruction and severe disc height loss at L3-4 with posterior disc osteophyte complex causing at least mild spinal canal stenosis. EKG showing normal sinus rhythm at [address]-T changes. In the emergency room patient received pain medication, IV fluids and continue with ceftriaxone on normal saline at 75 mL/h. 11/25/2020 Patient is seen and evaluated in follow-up and awaiting a PICC line for discharge. Patient also being followed by surgery recommending no surgical intervention at this time as patient is actively having bowel movements and tolerating diet with SBO resolved. Case management following and making arrangements for IV antibiotic therapy in the outpatient setting. Infectious disease following and patient will be continued on IV cefazolin. Currently no reports of chest pain, worsening shortness of breath, or palpitations. Patient is afebrile. No reports of nausea or vomiting and patient is tolerating diet. Patient will be discharged to home today. On exam vital signs are stable. Cardio S1, S2 are muffled. Respiratory system shows diminished breath sounds at the bases with no wheezing or rhonchi noted. Abdomen is soft and nontender. Nervous system shows no focal deficits. Please refer to medication reconciliation sheet for a list of medications. Patient Condition at Discharge: Stable Plan - Discharge Summary Discharge Rx Participant: No New Discharge Prescriptions: New polyethylene glycoL 3350 [Miralax] 17 gm PO DAILY 30 Days #30 powd.pack Ibuprofen [Motrin] 400 mg PO Q4HR PRN #30 tab PRN Reason: Pain Calcium Carb-Vit D 500Mg-5Mcg [Oscal 500+D 5 Mcg (200 Iu)] 1 each PO BID- W/MEALS 30 Days #60 tab Acetaminophen Tab [Tylenol] 650 mg PO Q6HR PRN tab PRN Reason: Fever And/ Or Pain ceFAZolin [Kefzol] 2 gm IVP Q8HR #120 vial Continue Omeprazole [PriLOSEC] 20 mg PO DAILY Empagliflozin [Jardiance] 25 mg PO DAILY Fluticasone/Vilanterol [Breo Ellipta 100-25 Mcg Inhaler] 1 puff INHALATION RT-DAILY Atorvastatin [Lipitor] 20 mg PO DAILY tadalafiL [Tadalafil] 20 mg PO Q36H PRN PRN Reason: E.D. Zinc 50 mg PO DAILY Naproxen 375 mg PO Q12H PRN PRN Reason: Pain Ascorbic Acid [Vitamin C] 500 mg PO DAILY lisinopriL [Zestril] 10 mg PO DAILY Alpha Lipoic Acid 600 mg PO DAILY Cyclobenzaprine [Flexeril] 10 mg PO TID PRN 7 Days #21 tab PRN Reason: Muscle Spasm Discharge Medication List Omeprazole [PriLOSEC] 20 mg PO DAILY 02/03/16 [History] Atorvastatin [Lipitor] 20 mg PO DAILY 08/12/19 [History] Empagliflozin [Jardiance] 25 mg PO DAILY 08/12/19 [History] Fluticasone/Vilanterol [Breo Ellipta 100-25 Mcg Inhaler] 1 puff INHALATION RT- DAILY 08/12/19 [History] tadalafiL [Tadalafil] 20 mg PO Q36H PRN 04/17/20 [History] Alpha Lipoic Acid 600 mg PO DAILY 11/18/20 [History] Ascorbic Acid [Vitamin C] 500 mg PO DAILY 11/18/20 [History] Cyclobenzaprine [Flexeril] 10 mg PO TID PRN 7 Days #21 tab 11/18/20 [Rx] Naproxen 375 mg PO Q12H PRN 11/18/20 [History] Zinc 50 mg PO DAILY 11/18/20 [History] lisinopriL [Zestril] 10 mg PO DAILY 11/18/20 [History] Acetaminophen Tab [Tylenol] 650 mg PO Q6HR PRN tab 11/25/20 [Rx] Calcium Carb-Vit D 500Mg-5Mcg [Oscal 500+D 5 Mcg (200 Iu)] 1 each PO BID-W/MEALS 30 Days #60 tab 11/25/20 [Rx] Ibuprofen [Motrin] 400 mg PO Q4HR PRN #30 tab 11/25/20 [Rx] ceFAZolin [Kefzol] 2 gm IVP Q8HR #120 vial 11/25/20 [Rx] polyethylene glycoL 3350 [Miralax] 17 gm PO DAILY 30 Days #30 powd.pack 11/25/20 [Rx] Follow up Appointment(s)/Referral(s): Chava Mclaughlin MD [Primary Care Provider] - 11/26/20 10:00 am [facility], [NON-STAFF] - 1 Week [facility]fusion [NON-STAFF] - 1 Week Lolly John MD [STAFF PHYSICIAN] - 1 Week Michael Gudino MD [STAFF PHYSICIAN] - 12/03/20 2:45 pm Ambulatory/Diagnostic Orders: Basic Metabolic Panel [LAB.AMB] Location: None Selected C Reactive Protein [LAB.AMB] Location: None Selected Complete Blood Count w/diff [LAB.AMB] Location: None Selected Erythrocyte Sedimentation Rate [LAB.AMB] Location: None Selected Patient Instructions/Handouts: Regular Diet (DC), Acute Low Back Pain (ED), Bowel Obstruction (DC) Activity/Diet/Wound Care/Special Instructions: Patient will need PICC line and IV antibiotic verification and coverage determined prior to discharge Patient to follow up with [facility] after discharge activity Limited until follow-up Continue with IV antibiotics per infectious disease recommendations continue consistent carb diet Discharge Disposition: HOME WITH HOME HEALTH SERVICES
== END 2020-11-25 18:53 | disposition home health service (06) | DRG 872 ==
LOC: EC 23:31 → 4SSUR 11-19 02:55 → 6NMEDSUR 11-19 11:54 → 5NMEDONC 11-23 05:49
PROVIDERS: ADMIT Internal Medicine; ATTEND Internal Medicine
PROC: 02HV33Z Insertion of Infusion Device into Superior Vena Cava, Percutaneous Approach (ICD-10-PCS; principal; 2020-11-25 12:00)
DX: A40.1 Sepsis due to streptococcus, group B (principal); K56.600 Partial intestinal obstruction, unspecified as to cause; N39.0 Urinary tract infection, site not specified; M46.46 Discitis, unspecified, lumbar region; R16.0 Hepatomegaly, not elsewhere classified; E11.9 Type 2 diabetes mellitus without complications; Z20.822 Contact with and (suspected) exposure to COVID-19; N20.0 Calculus of kidney; M48.061 Spinal stenosis, lumbar region without neurogenic claudication; I10 Essential (primary) hypertension; K57.30 Diverticulosis of large intestine without perforation or abscess without bleeding; J45.909 Unspecified asthma, uncomplicated; K22.70 Barrett's esophagus without dysplasia; G43.909 Migraine, unspecified, not intractable, without status migrainosus; M65.331 Trigger finger, right middle finger; M65.341 Trigger finger, right ring finger; M51.36 Other intervertebral disc degeneration, lumbar region; M25.78 Osteophyte, vertebrae; M25.511 Pain in right shoulder; I45.10 Unspecified right bundle-branch block; K21.9 Gastro-esophageal reflux disease without esophagitis; Z79.84 Long term (current) use of oral hypoglycemic drugs; Z79.899 Other long term (current) drug therapy; Z87.19 Personal history of other diseases of the digestive system; Z87.39 Personal history of other diseases of the musculoskeletal system and connective tissue; Z98.890 Other specified postprocedural states; Z91.041 Radiographic dye allergy status; Z80.8 Family history of malignant neoplasm of other organs or systems; Z82.49 Family history of ischemic heart disease and other diseases of the circulatory system
CPT/HCPCS: 36415; 36573; 71045; 71275; 72072; 72100; 72158; 74018; 74177; 80048; 80053; 81001; 82306; 82652; 83605; 83690; 84145; 84484; 84550; 85025; 85610; 85652; 85730; 87040; 87077; 87086; 87186; 87635; 93005; 94640; 96361; 96365; 96366; 96372; 96375; 99284; 99285

== ENCOUNTER 2021-02-07 09:10 | Emergency (ER) | payer BC ==
--- NOTE | 2021-02-07 09:47 | XR ---
EXAMINATION TYPE: XR chest 1V portable DATE OF EXAM: 02/07/2021 COMPARISON: Chest x-ray November 22, 2020 HISTORY: Shortness of breath TECHNIQUE: Single AP portable frontal view of the chest is obtained. FINDINGS: There is mild chronic parenchymal changes without suspicious new focal air space opacity, pleural effusion, or pneumothorax seen. The cardiac silhouette size is upper limits of normal. The osseous structures are intact. IMPRESSION: Mild chronic changes without acute pulmonary process.
--- NOTE | 2021-02-07 09:48 | ED ---
General Adult HPI - General Chief complaint: Upper Respiratory Infection Stated complaint: SOB,Loss of taste/smell Time Seen by Provider: 02/07/21 09:23 Source: patient, RN notes reviewed Mode of arrival: ambulatory Limitations: no limitations - History of Present Illness Initial comments: This a 50-year-old male presents emergency Department chief complaint of shortness of breath. Patient states he's had symptoms for 1 week states he lost his sense of taste and smell. Patient did admit that he had testing and that is results yesterday in which she tested positive for COVID-19. Patient does have underlying asthma patient states these been very active denies any chest pain or pleuritic chest pain no leg swelling. Patient states he has been very fatigued slight cough nonproductive mild nasal congestion - Related Data Home Medications Medication Instructions Recorded Confirmed Omeprazole [PriLOSEC] 20 mg PO DAILY 02/03/16 11/19/20 Atorvastatin [Lipitor] 20 mg PO DAILY 08/12/19 11/19/20 Empagliflozin [Jardiance] 25 mg PO DAILY 08/12/19 11/19/20 Fluticasone/Vilanterol [Breo 1 puff INHALATION RT-DAILY 08/12/19 11/19/20 Ellipta 100-25 Mcg Inhaler] tadalafiL [Tadalafil] 20 mg PO Q36H PRN 04/17/20 11/19/20 Alpha Lipoic Acid 600 mg PO DAILY 11/18/20 11/19/20 Ascorbic Acid [Vitamin C] 500 mg PO DAILY 11/18/20 11/19/20 Naproxen 375 mg PO Q12H PRN 11/18/20 11/19/20 Zinc 50 mg PO DAILY 11/18/20 11/19/20 lisinopriL [Zestril] 10 mg PO DAILY 11/18/20 11/19/20 Previous Rx's Medication Instructions Recorded Cyclobenzaprine [Flexeril] 10 mg PO TID PRN 7 Days #21 tab 11/18/20 Acetaminophen Tab [Tylenol] 650 mg PO Q6HR PRN tab 11/25/20 Calcium Carb-Vit D 500Mg-5Mcg 1 each PO BID-W/MEALS 30 Days #60 11/25/20 [Oscal 500+D 5 Mcg (200 Iu)] tab Ibuprofen [Motrin] 400 mg PO Q4HR PRN #30 tab 11/25/20 ceFAZolin [Kefzol] 2 gm IVP Q8HR #120 vial 11/25/20 polyethylene glycoL 3350 [Miralax] 17 gm PO DAILY 30 Days #30 11/25/20 powd.pack Allergies Allergy/AdvReac Type Severity Reaction Status Date / Time Iodinated Contrast Media AdvReac "PASSED Verified 11/19/20 07:13 [Iodinated Contrast Media - OUT, after IV Dye] fluroscopy" Review of Systems ROS Statement: Those systems with pertinent positive or pertinent negative responses have been documented in the HPI. ROS Other: All systems not noted in ROS Statement are negative. Past Medical History Past Medical History: Asthma, Diabetes Mellitus, GERD/Reflux Additional Past Medical History / Comment(s): hx migraines, constipation and bloating, History of Any Multi-Drug Resistant Organisms: None Reported Past Surgical History: Hernia Repair, Orthopedic Surgery Additional Past Surgical History / Comment(s): ARTHROSCOPIC RT KNEE , rt SHOULDER surgery, Past Anesthesia/Blood Transfusion Reactions: Motion Sickness Past Psychological History: No Psychological Hx Reported Smoking Status: Never smoker Past Alcohol Use History: Occasional Past Drug Use History: None Reported - Past Family History Father Family Medical History: Cancer Additional Family Medical History / Comment(s): Malignant melanoma Mother Family Medical History: Coronary Artery Disease (CAD) Additional Family Medical History / Comment(s): Mother at the age of 81 yrs. She had 3 vessel CABG and cardiac stents General Exam Limitations: no limitations General appearance: alert, in no apparent distress Head exam: Present: atraumatic, normocephalic, normal inspection Eye exam: Present: normal appearance, PERRL, EOMI. Absent: scleral icterus, conjunctival injection, periorbital swelling ENT exam: Present: normal exam, mucous membranes moist Neck exam: Present: normal inspection, full ROM. Absent: tenderness, lymphadenopathy Respiratory exam: Present: normal lung sounds bilaterally. Absent: respiratory distress, wheezes, rales, rhonchi, stridor Cardiovascular Exam: Present: regular rate, normal rhythm, normal heart sounds. Absent: systolic murmur, diastolic murmur, rubs, gallop, clicks Neurological exam: Present: alert Skin exam: Present: warm, dry, intact, normal color. Absent: rash Course Vital Signs 02/07/21 09:17 Temperature 97.4 F L Pulse Rate 70 Respiratory 18 Rate Blood Pressure 129/80 O2 Sat by Pulse 98 Oximetry Medical Decision Making - Medical Decision Making Chest x-ray is unremarkable. Patient does qualify for monoclonal antibodies. Vitals are reviewed and are stable. Patient's and no sense distress. Patient will be discharged after infusion. Disposition Clinical Impression: COVID-19 Disposition: HOME SELF-CARE Condition: Stable Instructions (If sedation given, give patient instructions): Coronavirus Disease 2019 (COVID-19) Additional Instructions: Please return to the Emergency Department if symptoms worsen or any other concerns. Is patient prescribed a controlled substance at d/c from ED?: No Referrals: None,Stated [Primary Care Provider] - 1-2 days Time of Disposition: 09:51
[2021-02-07] MEDS ORDERED: BAMLANIVIMAB (EUA) 700 MG, ETESEVIMAB (EUA) 1,400 MG in SODIUM CHLORIDE 0.9% 50 ML IVPB ONE (10:30)
[2021-02-07] MEDS ORDERED: SODIUM CHLORIDE 0.9% 50 ML IVPB ONE (10:30)
[2021-02-07 10:32] VITALS: TEMP 97.6
[2021-02-07] MEDS ORDERED: SODIUM CHLORIDE 0.9% 500 ML 500 ML in EMPTY BAG 1 BAG IV PRN (10:33)
[2021-02-07 11:33] VITALS: RESP 16
[2021-02-07 12:14] VITALS: BP 118/75; PULSE 59
== END 2021-02-07 12:44 ==
LOC: PROCWHC3 09:10 → EC 09:10 → EDSTATUS 10:15 → PROCWHC3 12:44 → EDSTATUS 12:46
DX: U07.1 COVID-19 (principal); J45.909 Unspecified asthma, uncomplicated; E11.9 Type 2 diabetes mellitus without complications; K21.9 Gastro-esophageal reflux disease without esophagitis; G43.909 Migraine, unspecified, not intractable, without status migrainosus
CPT/HCPCS: 99285; 96360; 71045; Q0245; M0245

== ENCOUNTER → 2021-02-13 | Outpatient (CLI) | payer BC | END | disposition home or self-care (01) | LOC: LABPAT 10:57 | PROVIDERS: ATTEND Surgery | DX: Z01.818 Encounter for other preprocedural examination (principal); K43.2 Incisional hernia without obstruction or gangrene; R94.31 Abnormal electrocardiogram [ECG] [EKG] | CPT/HCPCS: 86850; 86900; 86901; 93005 ==

== ENCOUNTER 2021-02-19 06:46 | Day surgery (SDC) | payer BC ==
[2021-02-14 14:16] VITALS: BMI 31.7
[2021-02-19] MEDS ORDERED: ONDANSETRON 4 MG/2 ML VIAL IVP ONE (07:07)
[2021-02-19] MEDS ORDERED: DEXAMETHASONE SOD PHOSPHATE 4 MG/ML 1 ML VIAL IV ONE (07:07)
[2021-02-19 07:35] LABS: Glucose,Whole Blood 142 mg/dL (75-99)
[2021-02-19] MEDS: LACTATED RINGERS 1,000 ML IV SCH ×2 (07:35→08:46)
[2021-02-19] MEDS ORDERED: SCOPOLAMINE 1.5MG/72HR PATCH TRANSDERM ONE (07:46)
[2021-02-19] MEDS ORDERED: MIDAZOLAM 2 MG/2 ML VIAL IVP ONE (08:06)
[2021-02-19] MEDS ORDERED: fentaNYL (PF) 50 MCG/ML 2 ML AMP IVP ONE (08:06)
[2021-02-19] MEDS ORDERED: HEPARIN SODIUM,PORCINE/PF 5,000 UNIT/0.5 ML SYRINGE SQ ONE (08:43)
[2021-02-19] MEDS ORDERED: HEPARIN SODIUM,PORCINE 5,000 UNIT/ML 1 ML VIAL SQ ONE (08:44)
[2021-02-19] MEDS ORDERED: SODIUM CHLORIDE 0.9% (PF) 10 ML VIAL ONE (08:50)
[2021-02-19] MEDS ORDERED: GLYCOPYRROLATE 0.2 MG/ML 2 ML VIAL ONE (08:50)
[2021-02-19] MEDS ORDERED: MIDAZOLAM 2 MG/2 ML VIAL ONE (08:50)
[2021-02-19] MEDS ORDERED: KETOROLAC 15 MG/ML 1 ML VIAL ONE (08:50)
[2021-02-19] MEDS ORDERED: ROCURONIUM 10 MG/ML (5 ML VIAL) IV ONE (08:50)
[2021-02-19] MEDS ORDERED: NEOSTIGMINE 1 MG/ML 10 ML VIAL ONE (08:50)
[2021-02-19] MEDS ORDERED: SUCCINYLCHOLINE CHLORIDE 100 MG/5 ML SYR IV ONE (08:50)
[2021-02-19] MEDS ORDERED: fentaNYL (PF) 50 MCG/ML 2 ML AMP ONE (08:50)
[2021-02-19] MEDS ORDERED: ROPIVACAINE 5 MG/ML 30 ML VIAL ONE (08:50)
[2021-02-19] MEDS ORDERED: HYDROmorphone (PF) 1 MG/ML ONE (08:50)
[2021-02-19] MEDS ORDERED: LIDOCAINE 1% INJ 10MG/ML (20 ML MDV) ONE (08:50)
[2021-02-19] MEDS ORDERED: KETAMINE 10 MG/ML 20 ML VIAL ONE (08:50)
[2021-02-19] MEDS ORDERED: PROPOFOL 10 MG/ML 20 ML VIAL IV ONE (08:50)
[2021-02-19] MEDS ORDERED: BUPIVACAINE-EPI 0.5%-1:200,000 10 ML VIAL SQ ONE (09:14)
[2021-02-19] MEDS ORDERED: LACTATED RINGERS 1,000 ML IV ONE (09:32)
--- NOTE | 2021-02-19 09:59 | P.GSHP ---
History of Present Illness H&P Date: 02/19/21 Chief Complaint: incisional hernia is a 50-year-old male hernia. Patient developed incisional hernia located just below his umbilicus Past Medical History Past Medical History: Asthma, Diabetes Mellitus, GERD/Reflux, Prostate Disorder Additional Past Medical History / Comment(s): hx migraines approx. 12 years ago, occas.constipation and bloating. History of Any Multi-Drug Resistant Organisms: None Reported Past Surgical History: Hernia Repair, Orthopedic Surgery Additional Past Surgical History / Comment(s): ARTHROSCOPIC RT KNEE , Rt. SHOULDER surgery, Past Anesthesia/Blood Transfusion Reactions: No Reported Reaction Smoking Status: Never smoker - Past Family History Father Family Medical History: Cancer Additional Family Medical History / Comment(s): Melanoma Mother Family Medical History: Coronary Artery Disease (CAD) Additional Family Medical History / Comment(s): Mother at the age of 81 yrs. She had 3 vessel CABG and cardiac stents Medications and Allergies Home Medications Medication Instructions Recorded Confirmed Type Omeprazole [PriLOSEC] 20 mg PO DAILY 02/03/16 02/19/21 History Atorvastatin [Lipitor] 20 mg PO DAILY 08/12/19 02/19/21 History Empagliflozin [Jardiance] 25 mg PO DAILY 08/12/19 02/19/21 History Fluticasone/Vilanterol [Breo 1 puff INHALATION RT-DAILY 08/12/19 02/19/21 History Ellipta 100-25 Mcg Inhaler] Cyclobenzaprine [Flexeril] 10 mg PO TID PRN 7 Days #21 tab 11/18/20 02/19/21 Rx lisinopriL [Zestril] 10 mg PO DAILY 11/18/20 02/19/21 History Ibuprofen [Motrin] 400 mg PO Q4HR PRN #30 tab 11/25/20 02/19/21 Rx Naproxen Sodium [Aleve] 220 mg PO DAILY 02/14/21 02/19/21 History Tamsulosin HCl [Flomax] 0.4 mg PO DAILY 02/14/21 02/19/21 History Allergies Allergy/AdvReac Type Severity Reaction Status Date / Time Iodinated Contrast Media AdvReac "PASSED Verified 02/19/21 07:11 [Iodinated Contrast Media - OUT, after IV Dye] fluroscopy" Surgical - Exam Vital Signs Temp Pulse Resp BP Pulse Ox 97.3 F L 78 18 129/74 95 02/19/21 07:21 02/19/21 07:21 02/19/21 07:21 02/19/21 07:21 02/19/21 07:21 - General well developed, well nourished, no distress - Eyes PERRL - ENT normal pinna - Neck no masses - Respiratory normal expansion - Cardiovascular Rhythm: regular - Abdomen Abdomen: soft, non tender Hernia: incisional (3 cm incisional hernia located near her umbilicus) Results - Labs Abnormal Lab Results - Last 24 Hours (Table) 02/19/21 Range/Units 07:32 POC Glucose (mg/dL) 142 H (75-99) mg/dL Assessment and Plan Plan: incisional hernia. We'll perform laparoscopic robotic-assisted repair.
[2021-02-19 10:01] VITALS: TEMP 97
--- NOTE | 2021-02-19 10:03 | P.OP ---
Date of Procedure: 02/19/21 Preoperative Diagnosis: incisional hernia Postoperative Diagnosis: incisional hernia Procedure(s) Performed: laparoscopic robotic system repair of incisional hernia Laparoscopic lysis of adhesions extensive Anesthesia: SHANE Surgeon: Michael Gudino Estimated Blood Loss (ml): 10 Pathology: none sent Condition: stable Disposition: PACU Description of Procedure: The patient was placed on the operating table in the supine position. He received general anesthesia. His abdomen was prepped and draped usual fashion. Using a 5 mm optical trocar under direct visualization the peritoneal cavity was entered in the left upper quadrant. The abdomen was then insufflated. The laparoscope was placed back into the perineal cavity. Next a 8 mm robotic trocar was placed in the left lower quadrant and a 12 mm robotic trocar was placed in the left lateral position. The original 5 mm trocar was exchanged for a 8 mm robotic trocar. The patient's placed in the left side up position. And the patient was docked to the robot. The incisional hernia was visualized. there were adhesions to the hernia. There was a nice looking the lateral aspect of the hernia. The adhesions were lysed with sharp Using hook cautery the peritoneum over the incisional hernia was excised. The fascial opening was repaired using 0V LOC suture. Next a piece of 11 cm round ventral light ST mesh was placed into the. Cavity and secured with 2 OV lock suture. The patient was undocked the robot. The needles were retrieved. The fascia of the 12 mm trocar site was closed with 0 Ethibond suture. Skin was closed interrupted 3-0 Monocryl suture. Dermabond dressings was applied. Patient david rated procedure well and was sent to recovery room stable condition.
[2021-02-19] MEDS ORDERED: KETOROLAC 15 MG/ML 1 ML VIAL IVP ONE (10:07)
[2021-02-19] MEDS: HYDROmorphone 0.5 MG/0.5 ML SYRINGE IVP PRN ×3 (10:10→10:40)
--- NOTE | 2021-02-19 10:50 | P.ANPRN ---
Procedure Note - Anesthesia - Nerve Block Performed Bilateral Erector Spinae Single Time Out Performed: Yes (805) Date of Procedure: 02/19/21 Procedure Start Time: 08:06 Procedure Stop Time: 08:12 Location of Patient: PreOp Indication: Acute Post-Operative Pain, Requested by Surgeon Specifically requested for management of pain by : Michael Gudino Sedation Type: Sedate with meaningful contact maintained Preparation: Sterile Prep Position: Supine Catheter: None Needle Types: Pajunk Needle Gauge: 21 Ultrasound used to visualize needle placement: Yes Ultrasound used to observe medication spread: Yes Injectate: 0.5% Ropivacaine (see comment for volume) ((Ropi 0.5% 15cc + Nacl 15cc) each side) Blood Aspirated: No Pain Paresthesia on Injection Noted: No Resistance on Injection: Normal Image Stored and Saved: Yes Events: Uneventful and Well Tolerated
--- NOTE | 2021-02-19 10:52 | P.ANPRN ---
Procedure Note - Anesthesia - Nerve Block Performed Left Interscalene Single Time Out Performed: Yes (755) Date of Procedure: 02/19/21 Procedure Start Time: 07:56 Procedure Stop Time: 08:00 Location of Patient: PreOp Indication: Acute Post-Operative Pain, Requested by Surgeon Specifically requested for management of pain by DrIlana: Ernst Rosado Sedation Type: Sedate with meaningful contact maintained Preparation: Sterile Prep Position: Supine Catheter: None Needle Types: Pajunk Needle Gauge: 21 Ultrasound used to visualize needle placement: Yes Ultrasound used to observe medication spread: Yes Injectate: 0.5% Ropivacaine (see comment for volume) (30cc) Blood Aspirated: No Pain Paresthesia on Injection Noted: No Resistance on Injection: Normal Image Stored and Saved: Yes Events: Uneventful and Well Tolerated
[2021-02-19 10:58] VITALS: RESP 16
[2021-02-19 11:28] VITALS: PULSE 61
[2021-02-19 11:29] LABS: Glucose,Whole Blood 168 mg/dL (75-99)
[2021-02-19 11:42] VITALS: BP 111/71
== END 2021-02-19 12:21 | disposition home or self-care (01) ==
LOC: OR 06:46
PROVIDERS: ATTEND Surgery
DX: K43.2 Incisional hernia without obstruction or gangrene (principal); K66.0 Peritoneal adhesions (postprocedural) (postinfection); J45.909 Unspecified asthma, uncomplicated; E11.9 Type 2 diabetes mellitus without complications; K21.9 Gastro-esophageal reflux disease without esophagitis; N42.9 Disorder of prostate, unspecified; Z79.899 Other long term (current) drug therapy; Z91.041 Radiographic dye allergy status
CPT/HCPCS: 49654; 64999; 76942; C1781; J2250; J1644; J1100; J2710; J0690; J2405; J2001; J3010; J1170 ×2; J2795; J1885; J0330; J2704; 86850; 86900; 86901

== ENCOUNTER 2021-05-19 00:36 | Inpatient (IN) | payer BC ==
[2021-05-19] MEDS ORDERED: IBUPROFEN 600 MG TAB PO STA (01:04)
[2021-05-19] MEDS ORDERED: SODIUM CHLORIDE 0.9% 1,000 ML IV STA (01:04)
[2021-05-19] MEDS ORDERED: ACETAMINOPHEN TAB 500 MG TAB PO STA (01:04)
[2021-05-19 01:42] LABS: Basophils # (A) 0.1 k/uL (0-0.2); Basophils % (A) 1 %; Eosinophils # (A) 0.1 k/uL (0-0.7); Eosinophils % (A) 1 %; HCT 47.5 % (39.0-53.0); HGB 16.2 gm/dL (13.0-17.5); Lymphocytes % (A) 9 %; MCH 27.9 pg (25.0-35.0); MCV 82.1 fL (80.0-100.0); Mean Platelet Volume 7.1; Monocytes # (A) 0.4 k/uL (0-1.0); Monocytes % (A) 3 %; Neutrophils # (A) 10.2 k/uL (1.3-7.7); Neutrophils % (A) 86 %; Platelet Count 204 k/uL (150-450); RBC 5.79 m/uL (4.30-5.90); WBC 11.9 k/uL (3.8-10.6)
--- NOTE | 2021-05-19 01:44 | ED ---
Fever HPI - General Chief Complaint: Fever Stated Complaint: Fever Time Seen by Provider: 05/19/21 00:47 Source: patient, family Mode of arrival: ambulatory Limitations: no limitations - History of Present Illness Initial Comments: Patient is a 50-year-old male, with history of diabetes, presenting to the emergency Department with complaints of a fever and body aches since yesterday. Patient states that he was recently treated for UTI, with macrobid and is concerned that that has returned. He finished one week ago. He has had UTIs previously. He also recently had a hernia repair in March, he has been healing without complications. patient also mentioned having UTI back in November which ended up in the hospital with a severe infection, discitis. He denies any abdominal pain, no nausea or vomiting. he denies any back pain. He states he d oes have body aches, chills and feels crampy from shivering. He did not take any Tylenol or Motrin prior to arrival. He denies having any headache. He denies any diarrhea, no cough or congestion, no chest pain or shortness of breath. He has no further complaints at this time. Upon arrival to the ER, he is febrile to 101.8, tachycardia at 122, rest of vitals within normal limits. - Related Data Home Medications Medication Instructions Recorded Confirmed Omeprazole [PriLOSEC] 20 mg PO DAILY 02/03/16 02/19/21 Atorvastatin [Lipitor] 20 mg PO DAILY 08/12/19 02/19/21 Empagliflozin [Jardiance] 25 mg PO DAILY 08/12/19 02/19/21 Fluticasone/Vilanterol [Breo 1 puff INHALATION RT-DAILY 08/12/19 02/19/21 Ellipta 100-25 Mcg Inhaler] lisinopriL [Zestril] 10 mg PO DAILY 11/18/20 02/19/21 Naproxen Sodium [Aleve] 220 mg PO DAILY 02/14/21 02/19/21 Tamsulosin HCl [Flomax] 0.4 mg PO DAILY 02/14/21 02/19/21 Previous Rx's Medication Instructions Recorded Cyclobenzaprine [Flexeril] 10 mg PO TID PRN 7 Days #21 tab 11/18/20 Ibuprofen [Motrin] 400 mg PO Q4HR PRN #30 tab 11/25/20 Acetaminophen Tab [Tylenol] 650 mg PO Q6H #30 tab 02/19/21 Docusate [Colace] 100 mg PO BID #20 capsule 02/19/21 Ibuprofen [Motrin] 600 mg PO Q6HR PRN #40 tab 02/19/21 oxyCODONE HCL [OxyIR] 5 mg PO Q6H PRN 3 Days #10 tab 02/19/21 Allergies Allergy/AdvReac Type Severity Reaction Status Date / Time Iodinated Contrast Media AdvReac "PASSED Verified 05/19/21 00:46 [Iodinated Contrast Media - OUT, after IV Dye] fluroscopy" Review of Systems ROS Statement: Those systems with pertinent positive or pertinent negative responses have been documented in the HPI. ROS Other: All systems not noted in ROS Statement are negative. Past Medical History Past Medical History: Asthma, Diabetes Mellitus, GERD/Reflux Additional Past Medical History / Comment(s): hx migraines, constipation and bloating, History of Any Multi-Drug Resistant Organisms: None Reported Past Surgical History: Hernia Repair Additional Past Surgical History / Comment(s): ARTHROSCOPIC RT KNEE , rt SHOULDER surgery, Past Anesthesia/Blood Transfusion Reactions: Motion Sickness Past Psychological History: No Psychological Hx Reported Smoking Status: Former smoker Past Alcohol Use History: Occasional Past Drug Use History: None Reported - Past Family History Father Family Medical History: Cancer Additional Family Medical History / Comment(s): Melanoma Mother Family Medical History: Coronary Artery Disease (CAD) Additional Family Medical History / Comment(s): Mother at the age of 81 yrs. She had 3 vessel CABG and cardiac stents General Exam - General Exam Comments Initial Comments: GENERAL: Patient is well-developed and well-nourished. Patient is nontoxic and in no acute distress. HEAD: Atraumatic, normocephalic. EYES: Pupils equal round and reactive to light, extraocular movements intact, sclera anicteric, conjunctiva are normal. Eyelids were unremarkable. ENT: TMs normal, nares patent, oropharynx clear without exudates. Moist mucous membranes. NECK: Normal range of motion, supple without lymphadenopathy or JVD. LUNGS: Unlabored respirations. Breath sounds clear to auscultation bilaterally and equal. No wheezes rales or rhonchi. HEART: tachycardia rate and rhythm without murmurs, rubs or gallops. ABDOMEN: Soft, nontender, normoactive bowel sounds. No guarding, no rebound. No masses appreciated. : Deferred MUSCULOSKELETAL: Normal extremities with adequate strength and normal range of motion, no pitting or edema. No clubbing or cyanosis. NEUROLOGICAL: Patient is alert and oriented x 3. Motor and sensory are also intact. Cranial nerves II through XII grossly intact. Symmetrical smile. Normal speech, normal gait. PSYCH: Normal mood, normal affect. SKIN: Warm, Dry, normal turgor, no rashes or lesions noted. Limitations: no limitations Course Vital Signs 05/19/21 05/19/21 00:40 02:15 Temperature 101.8 F H 98.4 F Pulse Rate 122 H 111 H Respiratory 22 20 Rate Blood Pressure 153/100 135/84 O2 Sat by Pulse 98 98 Oximetry Medical Decision Making - Medical Decision Making patient is a 50-year-old male with history of diabetes, presenting with fever, body aches since yesterday. He was recently treated for a UTI 2 weeks ago, with macrobid, he finished antibiotic last week. He has been symptom free. He did arrive febrile and tachycardia. No acute findings on exam, no abdominal pain, no chest pain or short of breath, no cough. Labs did reveal a slightly, 11.9, kidney function is stable, lactic acid is 1.5. His urine is positive for nitrates, 1+ ketones, 19 WBCs. Covid is not detected, chest x-ray is normal. Blood cultures and urine culture are pending at this time. patient was given Tylenol and Motrin as well as 1L bolus. Patient will be admitted for sepsis from UTI, failed outpatient treatment. Patient will be continued on fluids, Tylenol and Motrin for any fevers and started Rocephin and vanco, until urine culture. Patient accepted by [facility], for Dr. Woods who covers for Dr. Le Camargo. I will consult ID as well. Case discussed with Dr. Ulloa. - Lab Data Result diagrams: 05/19/21 01:16 05/19/21 01:16 Lab Results 05/19/21 05/19/21 05/19/21 Range/Units 01:16 01:16 01:16 WBC 11.9 H (3.8-10.6) k/uL RBC 5.79 (4.30-5.90) m/uL Hgb 16.2 (13.0-17.5) gm/dL Hct 47.5 (39.0-53.0) % MCV 82.1 (80.0-100.0) fL MCH 27.9 (25.0-35.0) pg MCHC 34.0 (31.0-37.0) g/dL RDW 15.0 (11.5-15.5) % Plt Count 204 (150-450) k/uL MPV 7.1 Neutrophils % 86 % Lymphocytes % 9 % Monocytes % 3 % Eosinophils % 1 % Basophils % 1 % Neutrophils # 10.2 H (1.3-7.7) k/uL Lymphocytes # 1.0 (1.0-4.8) k/uL Monocytes # 0.4 (0-1.0) k/uL Eosinophils # 0.1 (0-0.7) k/uL Basophils # 0.1 (0-0.2) k/uL Sodium 135 L (137-145) mmol/L Potassium 4.3 (3.5-5.1) mmol/L Chloride 102 (98-107) mmol/L Carbon Dioxide 19 L (22-30) mmol/L Anion Gap 14 mmol/L BUN 21 H (9-20) mg/dL Creatinine 0.84 (0.66-1.25) mg/dL Est GFR (CKD-EPI)AfAm >90 (>60 ml/min/1.73 sqM) Est GFR (CKD-EPI)NonAf >90 (>60 ml/min/1.73 sqM) Glucose 139 H (74-99) mg/dL Plasma Lactic Acid David (0.7-2.0) mmol/L Calcium 9.7 (8.4-10.2) mg/dL Total Bilirubin 0.7 (0.2-1.3) mg/dL AST 38 (17-59) U/L ALT 43 (4-49) U/L Alkaline Phosphatase 83 (38-126) U/L Total Protein 7.6 (6.3-8.2) g/dL Albumin 4.6 (3.5-5.0) g/dL Urine Color Light Yellow Urine Appearance Clear (Clear) Urine pH 5.5 (5.0-8.0) Ur Specific [place] 1.022 (1.001-1.035) Urine Protein Negative (Negative) Urine Glucose (UA) 4+ H (Negative) Urine Ketones 1+ H (Negative) Urine Blood Negative (Negative) Urine Nitrite Positive (Negative) Urine Bilirubin Negative (Negative) Urine Urobilinogen <2.0 (<2.0) mg/dL Ur Leukocyte Esterase Small H (Negative) Urine RBC 1 (0-5) /hpf Urine WBC 19 H (0-5) /hpf Urine Mucus Rare H (None) /hpf Coronavirus (PCR) (Not Detectd) 05/19/21 05/19/21 Range/Units 01:16 01:16 WBC (3.8-10.6) k/uL RBC (4.30-5.90) m/uL Hgb (13.0-17.5) gm/dL Hct (39.0-53.0) % MCV (80.0-100.0) fL MCH (25.0-35.0) pg MCHC (31.0-37.0) g/dL RDW (11.5-15.5) % Plt Count (150-450) k/uL MPV Neutrophils % % Lymphocytes % % Monocytes % % Eosinophils % % Basophils % % Neutrophils # (1.3-7.7) k/uL Lymphocytes # (1.0-4.8) k/uL Monocytes # (0-1.0) k/uL Eosinophils # (0-0.7) k/uL Basophils # (0-0.2) k/uL Sodium (137-145) mmol/L Potassium (3.5-5.1) mmol/L Chloride (98-107) mmol/L Carbon Dioxide (22-30) mmol/L Anion Gap mmol/L BUN (9-20) mg/dL Creatinine (0.66-1.25) mg/dL Est GFR (CKD-EPI)AfAm (>60 ml/min/1.73 sqM) Est GFR (CKD-EPI)NonAf (>60 ml/min/1.73 sqM) Glucose (74-99) mg/dL Plasma Lactic Acid David 1.5 (0.7-2.0) mmol/L Calcium (8.4-10.2) mg/dL Total Bilirubin (0.2-1.3) mg/dL AST (17-59) U/L ALT (4-49) U/L Alkaline Phosphatase (38-126) U/L Total Protein (6.3-8.2) g/dL Albumin (3.5-5.0) g/dL Urine Color Urine Appearance (Clear) Urine pH (5.0-8.0) Ur Specific [place] (1.001-1.035) Urine Protein (Negative) Urine Glucose (UA) (Negative) Urine Ketones (Negative) Urine Blood (Negative) Urine Nitrite (Negative) Urine Bilirubin (Negative) Urine Urobilinogen (<2.0) mg/dL Ur Leukocyte Esterase (Negative) Urine RBC (0-5) /hpf Urine WBC (0-5) /hpf Urine Mucus (None) /hpf Coronavirus (PCR) Not Detected (Not Detectd) Disposition Clinical Impression: Sepsis secondary to UTI, Failure of outpatient treatment Disposition: ADMITTED IP TO THIS [facility] Condition: Stable Referrals: Le Camargo MD [Primary Care Provider] - 1-2 days Decision Date: 05/19/21 Decision Time: 02:26
[2021-05-19 01:46] LABS: Appearance,Urine Clear (Clear); Bilirubin,Urine Negative (Negative); Blood,Urine Negative (Negative); Color,Urine Light Yellow; Glucose,Urine (UA) 4+ (Negative); Ketones,Urine 1+ (Negative); Leukocyte Esterase,Urine Small (Negative); Mucus,Urine Rare /hpf; Nitrite,Urine Positive (Negative); PH, Urine 5.5 (5.0-8.0); Protein,Urine Negative (Negative); RBC,Urine 1 /hpf (0-5); Specific Gravity,Urine 1.022 (1.001-1.035); Urobilinogen,Urine <2.0 mg/dL (<2.0); WBC,Urine 19 /hpf (0-5)
[2021-05-19 01:52] LABS: ALT 43 U/L (4-49); AST 38 U/L (17-59); African American GFR (CKD) >90 (>60 ml/min/1.73 sqM); Albumin 4.6 g/dL (3.5-5.0); Alkaline Phosphatase 83 U/L (38-126); Anion Gap 14 mmol/L; Blood Urea Nitrogen 21 mg/dL (9-20); Calcium 9.7 mg/dL (8.4-10.2); Carbon Dioxide 19 mmol/L (22-30); Chloride 102 mmol/L (98-107); Glucose 139 mg/dL (74-99); Non-African American GFR(CKD) >90 (>60 ml/min/1.73 sqM); Potassium 4.3 mmol/L (3.5-5.1); Sodium 135 mmol/L (137-145); Total Bilirubin 0.7 mg/dL (0.2-1.3); Total Protein 7.6 g/dL (6.3-8.2)
--- NOTE | 2021-05-19 01:59 | XR ---
EXAMINATION TYPE: XR chest 1V portable DATE OF EXAM: 05/19/2021 COMPARISON: 02/07/2021 HISTORY: Cough. Short of breath TECHNIQUE: Single view FINDINGS: Heart and mediastinum are normal. Lungs are clear of infiltrate. There is no heart failure. IMPRESSION: No active cardiopulmonary disease. No change.
[2021-05-19] MEDS ORDERED: VANCOMYCIN IV PER PHARMACY 1 EACH MISC MISCELLANE PRN (02:21)
[2021-05-19] MEDS ORDERED: cefTRIAXone IN SWFI 1,000 MG/10 ML SYRINGE IVP STA (02:21)
[2021-05-19] MEDS ORDERED: IBUPROFEN 400 MG TAB PO PRN (02:26)
[2021-05-19] MEDS ORDERED: ONDANSETRON 4 MG/2 ML VIAL IVP PRN (02:26)
[2021-05-19] MEDS: SODIUM CHLORIDE 0.9% 1,000 ML IV SCH ×3 (02:42→20:48)
[2021-05-19] MEDS: VANCOMYCIN 1,750 MG in SODIUM CHLORIDE 0.9% 500 ML 500 ML IVPB SCH ×2 (03:42→15:06)
--- NOTE | 2021-05-19 10:48 | P.HPIM ---
History of Present Illness Patient is a pleasant 50-year-old male came in with the complaints of fever and body aches since yesterday. Patient was treated with Macrobid which she completed a week of therapy about 3 days ago. Patient denied any UTI symptoms p atient has urinary retention but doesn't have any dysuria denied any superpubic pain Dysuria. Patient had a history of discitis in the past and patient was told UTI is the reason why he became bacteremic and ended up having discitis. Patient had streptococcal bacteremia at that time. Patient is feeling much better today. She was having mild cough he does have chronic diarrhea which haven't changed. Denied any significant abdominal pain. Patient was tested for COVID- 19 which was negative patient does have leukocytosis as well. REVIEW OF SYSTEMS: CONSTITUTIONAL: No fever, no malaise, no fatigue. HEENT: No recent visual problems or hearing problems. Denied any sore throat. CARDIOVASCULAR: No chest pain, orthopnea, PND, no palpitations, no syncope. PULMONARY: No shortness of breath, no cough, no hemoptysis. GASTROINTESTINAL: No diarrhea, no nausea, no vomiting, no abdominal pain. NEUROLOGICAL: No headaches, no weakness, no numbness. HEMATOLOGICAL: Denies any bleeding or petechiae. GENITOURINARY: Denies any burning micturition, frequency, or urgency. MUSCULOSKELETAL/RHEUMATOLOGICAL: Denies any joint pain, swelling, or any muscle pain. ENDOCRINE: Denies any polyuria or polydipsia. The rest of the 14-point review of systems is negative. PHYSICAL EXAMINATION: GENERAL: The patient is alert and oriented x3, not in any acute distress. Obese HEENT: Pupils are round and equally reacting to light. EOMI. No scleral icterus. No conjunctival pallor. Normocephalic, atraumatic. No pharyngeal erythema. No thyromegaly. CARDIOVASCULAR: S1 and S2 present. No murmurs, rubs, or gallops. PULMONARY: Chest is clear to auscultation, no wheezing or crackles. ABDOMEN: Soft, nontender, nondistended, normoactive bowel sounds. No palpable organomegaly. MUSCULOSKELETAL: No joint swelling or deformity. EXTREMITIES: No cyanosis, clubbing, or pedal edema. NEUROLOGICAL: Gross neurological examination did not reveal any focal deficits. SKIN: No rashes. Assessment and plan -Systemic inflammatory response a/sepsis source of infection is not clear urine is bit abnormal but not significant, did have some white blood cell count and small leukocyte esterase and nitrate was negative. Not completely convinced that patient has UTI at this time patient received Rocephin which will be continued patient also received vancomycin infectious disease was consulted and awaiting the recommendations blood cultures were obtained. Patient denied any back pain at this time -History of discitis and completed treatment for discitis -Asthma without any acute exacerbation -Type 2 diabetes mellitus. Patient will be started him on his home regimen monitor blood sugars patient was started on sliding scale insulin as well -Gastro-esophageal reflux disease DVT prophylaxis: Ambulation Past Medical History Past Medical History: Asthma, Diabetes Mellitus, GERD/Reflux Additional Past Medical History / Comment(s): hx migraines, constipation and bloating, History of Any Multi-Drug Resistant Organisms: None Reported Past Surgical History: Hernia Repair Additional Past Surgical History / Comment(s): ARTHROSCOPIC RT KNEE , rt SHOULDER surgery, Past Anesthesia/Blood Transfusion Reactions: Motion Sickness Past Psychological History: No Psychological Hx Reported Smoking Status: Former smoker Past Alcohol Use History: Occasional Past Drug Use History: None Reported - Past Family History Father Family Medical History: Cancer Additional Family Medical History / Comment(s): Melanoma Mother Family Medical History: Coronary Artery Disease (CAD) Additional Family Medical History / Comment(s): Mother at the age of 81 yrs. She had 3 vessel CABG and cardiac stents Medications and Allergies Home Medications Medication Instructions Recorded Confirmed Type Omeprazole [PriLOSEC] 20 mg PO DAILY 02/03/16 05/19/21 History Empagliflozin [Jardiance] 25 mg PO DAILY 08/12/19 05/19/21 History Fluticasone/Vilanterol [Breo 1 puff INHALATION RT-DAILY PRN 08/12/19 05/19/21 History Ellipta 100-25 Mcg Inhaler] lisinopriL [Zestril] 10 mg PO DAILY 11/18/20 05/19/21 History Naproxen Sodium [Aleve] 220 mg PO DAILY 02/14/21 05/19/21 History Tamsulosin HCl [Flomax] 0.4 mg PO DAILY 02/14/21 05/19/21 History Atorvastatin [Lipitor] 20 mg PO DAILY 05/19/21 05/19/21 History tadalafiL [Tadalafil] 20 mg PO DIRECTED 05/19/21 05/19/21 History Allergies Allergy/AdvReac Type Severity Reaction Status Date / Time Iodinated Contrast Media AdvReac "PASSED Verified 05/19/21 06:26 [Iodinated Contrast Media - OUT, after IV Dye] fluroscopy" Physical Exam Vitals: Vital Signs Temp Pulse Resp BP Pulse Ox 05/19/21 08:57 98.2 F 87 16 138/84 100 05/19/21 06:15 97.7 F 74 18 139/77 96 05/19/21 02:15 98.4 F 111 H 20 135/84 98 05/19/21 00:40 101.8 F H 122 H 22 153/100 98 Intake and Output 05/18/21 05/19/21 05/19/21 22:59 06:59 14:59 Other: Voiding Method Toilet Weight 104.326 kg Results CBC & Chem 7: 05/19/21 01:16 05/19/21 01:16 Labs: Abnormal Lab Results - Last 24 Hours (Table) 05/19/21 05/19/21 05/19/21 Range/Units 01:16 01:16 01:16 WBC 11.9 H (3.8-10.6) k/uL Neutrophils # 10.2 H (1.3-7.7) k/uL Sodium 135 L (137-145) mmol/L Carbon Dioxide 19 L (22-30) mmol/L BUN 21 H (9-20) mg/dL Glucose 139 H (74-99) mg/dL Urine Glucose (UA) 4+ H (Negative) Urine Ketones 1+ H (Negative) Ur Leukocyte Esterase Small H (Negative) Urine WBC 19 H (0-5) /hpf Urine Mucus Rare H (None) /hpf
[2021-05-19] MEDS: TAMSULOSIN 0.4 MG CAP.ER.24H PO SCH (11:13)
[2021-05-19] MEDS: lisinopriL 10 MG TAB PO SCH (15:07)
[2021-05-19] MEDS: ACETAMINOPHEN TAB 325 MG TAB PO PRN (19:02)
[2021-05-19] MEDS: SYMBICORT 80-4.5 MCG INHALER INHALATION PRN (20:00)
--- NOTE | 2021-05-19 23:20 | P.CONS ---
History of Present Illness - Reason for Consult Consult date: 05/19/21 sepsis from UTI , Failed outpatient abx Requesting physician: Bean Haas - Chief Complaint fever x 1 day - History of Present Illness History of present illness : Patient is a 50-year male with a past medical history significant for Streptococcus agalactiae bacteremia back in November 2020 source being discitis that was treated with 6-week course of IV antibiotic therapy for MRSA patient has subsequently recovered patient presenting to the ER with complaints of fever and body aches that started since yesterday patient was recently treated for an episode of UTI in the outpatient setting by the urgent care with the [facility] patient did have a urinary symptoms of burning frequency for the patient was treated with the Macrobid patient mention he did have some improvement in his symptoms however the last 2 days started having fever with chills patient denies having any headache or URI symptoms he denies having any chest pain no shortness of breath or cough. Denies any nausea no abdominal pain or diarrhea with the symptom the patient was evaluated by ER physician on arrival to the ER appeared to have a fever of 101.8 in the form of right patient did have white count of 11.9 with a left shift creatinine was normal exams are normal did have a positive UA and blood cultures have been obtained which are currently pending patient did have a chest x-ray no active cardiopulmonary disease patient was started on vancomycin infectious disease was consulted for further management of antibiotic therapy Review of system: Positive point has been mentioned in HPI rest of the systems are negative Past medical history : Reviewed, documented below Past surgical history : Reviewed, documented below Social history: Reviewed, documented below Medications: Reviewed, as documented below GENERAL DESCRIPTION: Middle-aged male lying in bed, no distress. No tachypnea or accessory muscle of respiration use. HEENT: Shows Pallor , no scleral icterus. Oral mucous membrane is dry. NECK: Trachea central, no thyromegaly. LUNGS: Unlabored breathing. Clear to auscultation anteriorly. No wheeze or crackle. HEART: S1, S2, regular rate and rhythm. ABDOMEN: Soft, no tenderness , guarding or rigidity EXTREMITIES: No edema of feet. SKIN: No rash, no masses palpable. NEUROLOGICAL: The patient is awake, alert, oriented x3, mood and affect normal. LABS AND RADIOLOGY: Reviewed results see below Assessment : Patient presented to hospital with sepsis in this patient who did have a fever elevated white count predominantly urinary symptoms also likely from UTI patient did have a history of streptococcal bacteremia from lumbar sacral spine discitis back in November however currently do not have any symptoms of low back pain and there is no evidence of any tenderness to the lumbosacral spine clinical doubt recurrence of the discitis Plan: 1-discontinue vancomycin 2-start patient on Rocephin 2 g daily 3-gentle IV fluid We will follow on clinical condition and cultures to further adjust medication if needed Thank you for this consultation we will follow the patient along with you Past Medical History Past Medical History: Asthma, Diabetes Mellitus, GERD/Reflux Additional Past Medical History / Comment(s): hx migraines, constipation and bloating, History of Any Multi-Drug Resistant Organisms: None Reported Past Surgical History: Hernia Repair Additional Past Surgical History / Comment(s): ARTHROSCOPIC RT KNEE , rt SHOULDER surgery, Past Anesthesia/Blood Transfusion Reactions: Motion Sickness Past Psychological History: No Psychological Hx Reported Smoking Status: Former smoker Past Alcohol Use History: Occasional Past Drug Use History: None Reported - Past Family History Father Family Medical History: Cancer Additional Family Medical History / Comment(s): Melanoma Mother Family Medical History: Coronary Artery Disease (CAD) Additional Family Medical History / Comment(s): Mother at the age of 81 yrs. She had 3 vessel CABG and cardiac stents Medications and Allergies Home Medications Medication Instructions Recorded Confirmed Type Omeprazole [PriLOSEC] 20 mg PO DAILY 02/03/16 05/19/21 History Empagliflozin [Jardiance] 25 mg PO DAILY 08/12/19 05/19/21 History Fluticasone/Vilanterol [Breo 1 puff INHALATION RT-DAILY PRN 08/12/19 05/19/21 History Ellipta 100-25 Mcg Inhaler] lisinopriL [Zestril] 10 mg PO DAILY 11/18/20 05/19/21 History Naproxen Sodium [Aleve] 220 mg PO DAILY 02/14/21 05/19/21 History Tamsulosin HCl [Flomax] 0.4 mg PO DAILY 02/14/21 05/19/21 History Atorvastatin [Lipitor] 20 mg PO DAILY 05/19/21 05/19/21 History tadalafiL [Tadalafil] 20 mg PO DIRECTED 05/19/21 05/19/21 History Allergies Allergy/AdvReac Type Severity Reaction Status Date / Time Iodinated Contrast Media AdvReac "PASSED Verified 05/19/21 06:26 [Iodinated Contrast Media - OUT, after IV Dye] fluroscopy" Physical Exam Vitals: Vital Signs Temp Pulse Pulse Resp BP BP Pulse Ox 05/19/21 21:30 98.2 F 71 16 130/77 95 05/19/21 18:53 98.2 F 68 18 124/80 97 05/19/21 13:00 17 05/19/21 08:57 98.2 F 87 16 138/84 100 05/19/21 06:15 97.7 F 74 18 139/77 96 05/19/21 02:15 98.4 F 111 H 20 135/84 98 05/19/21 00:40 101.8 F H 122 H 22 153/100 98 Intake and Output 05/19/21 05/19/21 05/20/21 14:59 22:59 06:59 Other: # Voids 1 Results CBC & Chem 7: 05/19/21 01:16 05/19/21 01:16 Labs: Abnormal Lab Results - Last 24 Hours (Table) 05/19/21 05/19/21 05/19/21 Range/Units 01:16 01:16 01:16 WBC 11.9 H (3.8-10.6) k/uL Neutrophils # 10.2 H (1.3-7.7) k/uL Sodium 135 L (137-145) mmol/L Carbon Dioxide 19 L (22-30) mmol/L BUN 21 H (9-20) mg/dL Glucose 139 H (74-99) mg/dL Urine Glucose (UA) 4+ H (Negative) Urine Ketones 1+ H (Negative) Ur Leukocyte Esterase Small H (Negative) Urine WBC 19 H (0-5) /hpf Urine Mucus Rare H (None) /hpf Microbiology - Last 24 Hours (Table) 05/19/21 01:16 Urine Culture - Preliminary Urine,Voided
[2021-05-20] MEDS: SODIUM CHLORIDE 0.9% 1,000 ML IV SCH ×2 (05:26→07:56)
[2021-05-20 07:02] LABS: Glucose,Whole Blood 105 mg/dL (75-99)
[2021-05-20] MEDS: lisinopriL 10 MG TAB PO SCH (07:55)
[2021-05-20] MEDS: PANTOPRAZOLE 40 MG TABLET PO SCH (07:55)
[2021-05-20] MEDS: ATORVASTATIN 20 MG TAB PO SCH (07:55)
[2021-05-20] MEDS: TAMSULOSIN 0.4 MG CAP.ER.24H PO SCH ×2 (07:55→21:31)
[2021-05-20] MEDS: SYMBICORT 80-4.5 MCG INHALER INHALATION PRN (08:26)
[2021-05-20 11:00] LABS: Basophils # (A) 0.04 X 10*3/uL (0.00-0.10); Basophils % (A) 0.7 %; Eosinophils % (A) 1.8 %; HCT 48.4 % (39.6-50.0); HGB 15.1 g/dL (13.0-17.0); Lymphocytes % (A) 34.6 %; MCHC 31.2 g/dL (32.0-37.0); MCV 86.6 fL (80.0-97.0); Mean Platelet Volume 10.5 fL (9.5-12.2); Monocytes # (A) 0.61 X 10*3/uL (0.20-1.00); Monocytes % (A) 11.1 %; Neutrophils # (A) 2.82 X 10*3/uL (1.80-7.70); Neutrophils % (A) 51.4 %; Platelet Count 222 X 10*3/uL (140-440); RBC 5.59 X 10*6/uL (4.40-5.60); RDW 16.2 % (11.5-14.5); WBC 5.49 X 10*3/uL (4.50-10.00)
[2021-05-20] MEDS: ACETAMINOPHEN TAB 325 MG TAB PO PRN ×2 (11:27→21:31)
[2021-05-20 11:45] LABS: Glucose,Whole Blood 102 mg/dL (75-99)
[2021-05-20 12:11] LABS: African American GFR (CKD) 119.9 (60.0-200.0); BUN/Creat Ratio 13.75 Ratio (12.00-20.00); Calcium 9.2 mg/dL (8.7-10.3); Non-African American GFR(CKD) 103.4 (60.0-200.0); Potassium 4.4 mmol/L (3.5-5.5)
--- NOTE | 2021-05-20 13:27 | P.PN ---
Subjective This is a pleasant 50 years old male with past medical history of diabetes mellitus, asthma, GERD. Presents with urinary symptoms and found to have acute urinary tract infection secondary to gram-negative bacilli. Patient is placed on Rocephin by ID team today. Patient is eating well and creatinine is normal, we will lower his fluid to 75 mL/h Other than that patient looks as symptomatic, vital signs blood looks stable. Objective - Vital Signs Vital signs: Vital Signs Temp 97.7 F 05/20/21 07:59 Pulse 56 L 05/20/21 07:59 Resp 18 05/20/21 07:59 BP 126/79 05/20/21 07:59 Pulse Ox 97 05/20/21 07:59 Intake & Output 05/19/21 05/20/21 05/20/21 18:59 06:59 18:59 Other: Voiding Method Toilet # Voids 1 - Exam -GENERAL: The patient is alert and oriented x3, not in any acute distress. Obese HEENT: Pupils are round and equally reacting to light. EOMI. No scleral icterus. No conjunctival pallor. Normocephalic, atraumatic. No pharyngeal erythema. No thyromegaly. CARDIOVASCULAR: S1 and S2 present. No murmurs, rubs, or gallops. PULMONARY: Chest is clear to auscultation, no wheezing or crackles. ABDOMEN: Soft, nontender, nondistended, normoactive bowel sounds. No palpable organomegaly. MUSCULOSKELETAL: No joint swelling or deformity. EXTREMITIES: No cyanosis, clubbing, or pedal edema. NEUROLOGICAL: Gross neurological examination did not reveal any focal deficits. SKIN: No rashes. no petechiae. - Labs CBC & Chem 7: 05/20/21 07:28 05/20/21 07:28 Labs: Abnormal Lab Results - Last 24 Hours (Table) 05/20/21 05/20/21 05/20/21 Range/Units 07:00 07:28 07:28 MCHC 31.2 L (32.0-37.0) g/dL RDW 16.2 H (11.5-14.5) % Chloride 110 H (96-109) mmol/L Glucose 124 H (70-110) mg/dL POC Glucose (mg/dL) 105 H (75-99) mg/dL 05/20/21 Range/Units 11:44 MCHC (32.0-37.0) g/dL RDW (11.5-14.5) % Chloride (96-109) mmol/L Glucose (70-110) mg/dL POC Glucose (mg/dL) 102 H (75-99) mg/dL Microbiology - Last 24 Hours (Table) 05/19/21 01:16 Urine Culture - Preliminary Urine,Voided Gram Neg Bacilli 05/19/21 01:16 Blood Culture - Preliminary Blood No Growth after 24 hours 05/19/21 01:16 Blood Culture - Preliminary Blood No Growth after 24 hours Assessment and Plan Assessment: Acute urinary tract infection secondary to gram-negative bacilli Chronic diarrhea Obesity with BMI of 34.0 Diabetes mellitus Plan: This is a pleasant 50 years old male who presents with acute UTI. Continue with Rocephin and follow-up urine culture Continue with gentle hydration Labs and medication were reviewed.. Continue same treatment. Continue with sym ptomatic treatment. Resume home medication. Monitor lytes and vitals. DVT and GI prophylaxis. Further recommendationsas per clinical course of the patient DVT prophylaxis: Subcutaneous heparin GI Prophylaxis: Ppi
[2021-05-20 16:33] LABS: Glucose,Whole Blood 147 mg/dL (75-99)
--- NOTE | 2021-05-20 19:41 | PN ---
PROGRESS NOTE DATE OF SERVICE: 05/20/2021 REASON FOR FOLLOWUP: Urinary tract infection. INTERVAL HISTORY: Patient is afebrile. The patient is feeling better. He is breathing comfortably. Denies any chest pain, shortness of breath, abdominal pain. No further urinary symptoms. PHYSICAL EXAMINATION: Blood pressure 146/70 with a pulse of 73, temperature is 97.6. He is 97% on room air. General description is a middle-aged male up in the bed in no distress. Respiratory system: Unlabored breathing, clear to auscultation anteriorly. Heart S1, S2. Regular rate and rhythm. Abdomen soft, no tenderness. LABS: Hemoglobin is 15.1, white count of 5.4, BUN of 11, creatinine 0.8. DIAGNOSTIC IMPRESSION AND PLAN: Patient with Gram-negative urinary tract infection. The patient has shown overall clinical improvement on the Rocephin, to continue. Transition to oral antibiotic on discharge. Continue supportive care. MMODL / IJN: [id number] /
[2021-05-20 20:57] LABS: Glucose,Whole Blood 204 mg/dL (75-99)
[2021-05-20] MEDS: HEPARIN SODIUM,PORCINE/PF 5,000 UNIT/0.5 ML SYRINGE SQ SCH (21:31)
[2021-05-21 06:56] LABS: Glucose,Whole Blood 134 mg/dL (75-99)
[2021-05-21] MEDS: lisinopriL 10 MG TAB PO SCH (08:09)
[2021-05-21] MEDS: TAMSULOSIN 0.4 MG CAP.ER.24H PO SCH ×2 (08:10→21:16)
[2021-05-21] MEDS: PANTOPRAZOLE 40 MG TABLET PO SCH (08:10)
[2021-05-21] MEDS: ATORVASTATIN 20 MG TAB PO SCH (08:10)
[2021-05-21] MEDS: HEPARIN SODIUM,PORCINE/PF 5,000 UNIT/0.5 ML SYRINGE SQ SCH ×2 (08:10→21:16)
[2021-05-21 11:07] LABS: Glucose,Whole Blood 130 mg/dL (75-99)
[2021-05-21] MEDS: ACETAMINOPHEN TAB 325 MG TAB PO PRN ×2 (11:10→21:16)
--- NOTE | 2021-05-21 13:30 | P.GSCN ---
History of Present Illness Consult date: 05/21/21 History of present illness: Mr Oreilly is a 50-year-old male admitted to the hospital with a febrile UTI. on presentation he was having difficulty voiding, but denies any dysuria or gross hematuria. He indicated he's able to void without any difficulty on flomax at this time , but of note his PVR has been the 300-400 range. this is a second UTI, no previous history of kidney stones. No family history of prostate cancer. Denies any previous surgeries. Review of Systems - Constitutional Reports fever, Reports weakness - EENT Ears, nose, mouth and throat: Denies dysphagia - Cardiovascular Denies chest pain, Denies shortness of breath - Respiratory Denies cough, Denies 7 - Gastrointestinal Reports as per HPI - Genitourinary Denies dysuria, Denies hematuria - Neurological Denies headaches, Denies syncope Past Medical History Past Medical History: Asthma, Diabetes Mellitus, GERD/Reflux Additional Past Medical History / Comment(s): hx migraines, constipation and bloating, History of Any Multi-Drug Resistant Organisms: None Reported Past Surgical History: Hernia Repair Additional Past Surgical History / Comment(s): ARTHROSCOPIC RT KNEE , rt SHOULDER surgery, Past Anesthesia/Blood Transfusion Reactions: Motion Sickness Past Psychological History: No Psychological Hx Reported Smoking Status: Former smoker Past Alcohol Use History: Occasional Past Drug Use History: None Reported - Past Family History Father Family Medical History: Cancer Additional Family Medical History / Comment(s): Melanoma Mother Family Medical History: Coronary Artery Disease (CAD) Additional Family Medical History / Comment(s): Mother at the age of 81 yrs. She had 3 vessel CABG and cardiac stents Medications and Allergies Home Medications Medication Instructions Recorded Confirmed Type Omeprazole [PriLOSEC] 20 mg PO DAILY 02/03/16 05/19/21 History Empagliflozin [Jardiance] 25 mg PO DAILY 08/12/19 05/19/21 History Fluticasone/Vilanterol [Breo 1 puff INHALATION RT-DAILY PRN 08/12/19 05/19/21 History Ellipta 100-25 Mcg Inhaler] lisinopriL [Zestril] 10 mg PO DAILY 11/18/20 05/19/21 History Naproxen Sodium [Aleve] 220 mg PO DAILY 02/14/21 05/19/21 History Tamsulosin HCl [Flomax] 0.4 mg PO DAILY 02/14/21 05/19/21 History Atorvastatin [Lipitor] 20 mg PO DAILY 05/19/21 05/19/21 History tadalafiL [Tadalafil] 20 mg PO DIRECTED 05/19/21 05/19/21 History Allergies Allergy/AdvReac Type Severity Reaction Status Date / Time Iodinated Contrast Media AdvReac "PASSED Verified 05/19/21 06:26 [Iodinated Contrast Media - OUT, after IV Dye] fluroscopy" Surgical - Exam Vital Signs Temp Pulse Resp BP Pulse Ox 101.8 F H 122 H 22 153/100 98 05/19/21 00:40 05/19/21 00:40 05/19/21 00:40 05/19/21 00:40 05/19/21 00:40 - General no distress, no pain - Eyes PERRL, normal ocular movement - ENT normal nares, normal mucosa - Respiratory normal expansion, normal respiratory effort - Abdomen Abdomen: soft, non tender - Neurologic normal coordination, normal sensation - Musculoskeletal normal gait, normal posture - Psychiatric oriented to time, oriented to person, oriented to place Results - Labs 05/20/21 07:28 05/20/21 07:28 Abnormal Lab Results - Last 24 Hours (Table) 05/20/21 05/20/21 05/21/21 Range/Units 16:32 20:55 06:55 POC Glucose (mg/dL) 147 H 204 H 134 H (75-99) mg/dL 05/21/21 Range/Units 11:05 POC Glucose (mg/dL) 130 H (75-99) mg/dL Microbiology - Last 24 Hours (Table) 05/19/21 01:16 Urine Culture - Final Urine,Voided Enterobacter cloacae 05/19/21 01:16 Blood Culture - Preliminary Blood No Growth after 48 hours 05/19/21 01:16 Blood Culture - Preliminary Blood No Growth after 48 hours Assessment and Plan Assessment: 50-year-old male admitted to the hospital with a febrile UTI, has been having elevated PVR at 300-400 range, but denies any voiding issues at this time. This is his second UTI. -Continue Flomax twice a day -Continue to trend his PVRs, advised to continue his timed voiding -will obtain a renal U/S
--- NOTE | 2021-05-21 14:17 | US ---
EXAMINATION TYPE: US kidneys/renal and bladder DATE OF EXAM: 05/21/2021 COMPARISON: US, CT CLINICAL HISTORY: Hematuria. Patient stated had hematuria 3 weeks ago, diabetic, recent UTI EXAM MEASUREMENTS: Right Kidney: 12.5 x 5.2 x 4.6 cm Left Kidney: 14.2 x 5.9 x 6.1 cm Post Void Residual Volume: not assessed on inpatient Right Kidney: No hydronephrosis or masses seen Left Kidney: cortical cyst seen upper pole = 0.9 x 0.9 x 0.7cm; central hypoechoic area are vessels n oted medially Bladder: wnl, not fully distended Bilateral Jets seen: yes Incidental finding right lobe of liver: hyperechoic oval focus = 1.4 x 1.2 x 1.3cm is noted and sugg ests liver hemangioma. There is no evidence for hydronephrosis at this point in time. No nephrolithiasis is seen. The urin marisela bladder is anechoic. Bilateral ureteral jets are seen. IMPRESSION: 1. Hepatic hemangioma. 2. Renal cortical cyst left kidney.
--- NOTE | 2021-05-21 14:27 | PN ---
PROGRESS NOTE DATE OF SERVICE: 05/21/2021 REASON FOR FOLLOWUP: Enterobacter urinary tract infection. INTERVAL HISTORY: The patient is afebrile. The patient is feeling better, breathing comfortably. Denies having any chest pain or shortness of breath or cough. No abdominal pain or diarrhea. PHYSICAL EXAMINATION: On examination, blood pressure is 145/85 with a pulse of 57. Temperature 98.4. He is 96% on room air. GENERAL DESCRIPTION: General description is a middle-aged male up in the chair in no distress. RESPIRATORY SYSTEM: Unlabored breathing. Clear to auscultation anteriorly. HEART: S1, S2. Regular rate and rhythm. ABDOMEN: Soft. No tenderness. LABS: Urine has been finalized with Enterobacter, which is a sensitive pathogen. DIAGNOSTIC IMPRESSION AND PLAN: Patient with an enterobacter urinary tract infection, failing outpatient therapy. Overall improvement on Rocephin, finishing therapy with oral Cipro. Prescription sent to the pharmacy. Close outpatient followup. MMODL / IJN: [id number] / MTDD
[2021-05-21 16:57] LABS: Glucose,Whole Blood 157 mg/dL (75-99)
[2021-05-21 20:36] LABS: Glucose,Whole Blood 165 mg/dL (75-99)
--- NOTE | 2021-05-21 21:32 | P.PN ---
Subjective This is a pleasant 50 years old male with past medical history of diabetes mellitus, asthma, GERD. Presents with urinary symptoms and found to have acute urinary tract infection secondary to gram-negative bacilli. Patient is placed on Rocephin by ID team today. Patient is eating well and creatinine is normal, we will lower his fluid to 75 mL/h Other than that patient looks as symptomatic, vital signs blood looks stable. 05/21/2021 Patient clinically doing well, no urinary complaints. No other complaints. Hemodynamically stable. Patient's urine culture came back positive for Enterobacter cloacae. urologist evaluated the patient and recommended renal ultrasound showing no hydronephrosis, stone Recommendation for follow-up with urologist as an outpatient and patient agrees Possible discharge in 24-48 hours Objective - Vital Signs Vital signs: Vital Signs Temp 98.4 F 05/21/21 07:53 Pulse 67 05/21/21 07:53 Resp 17 05/21/21 07:53 BP 145/85 05/21/21 07:53 Pulse Ox 96 05/21/21 07:53 Intake & Output 05/20/21 05/21/21 05/21/21 18:59 06:59 18:59 Output Total 400 Balance -400 Output: Urine 400 Other: Voiding Method Toilet Toilet # Voids 3 - Exam -GENERAL: The patient is alert and oriented x3, not in any acute distress. Obese HEENT: Pupils are round and equally reacting to light. EOMI. No scleral icterus. No conjunctival pallor. Normocephalic, atraumatic. No pharyngeal erythema. No thyromegaly. CARDIOVASCULAR: S1 and S2 present. No murmurs, rubs, or gallops. PULMONARY: Chest is clear to auscultation, no wheezing or crackles. ABDOMEN: Soft, nontender, nondistended, normoactive bowel sounds. No palpable organomegaly. MUSCULOSKELETAL: No joint swelling or deformity. EXTREMITIES: No cyanosis, clubbing, or pedal edema. NEUROLOGICAL: Gross neurological examination did not reveal any focal deficits. SKIN: No rashes. no petechiae. - Labs CBC & Chem 7: 05/20/21 07:28 05/20/21 07:28 Labs: Abnormal Lab Results - Last 24 Hours (Table) 05/20/21 05/20/21 05/21/21 Range/Units 16:32 20:55 06:55 POC Glucose (mg/dL) 147 H 204 H 134 H (75-99) mg/dL 05/21/21 Range/Units 11:05 POC Glucose (mg/dL) 130 H (75-99) mg/dL Microbiology - Last 24 Hours (Table) 05/19/21 01:16 Urine Culture - Final Urine,Voided Enterobacter cloacae 05/19/21 01:16 Blood Culture - Preliminary Blood No Growth after 48 hours 05/19/21 01:16 Blood Culture - Preliminary Blood No Growth after 48 hours Assessment and Plan Assessment: Acute urinary tract infection secondary to Enterobacter cloacae Mild urinary retention Chronic diarrhea Obesity with BMI of 34.0 Diabetes mellitus Plan: This is a pleasant 50 years old male who presents with acute UTI. Continue with Rocephin and switch to Cipro upon discharge per ID recommendation Follow up with urologist as an outpatient Labs and medication were reviewed.. Continue same treatment. Continue with symptomatic treatment. Resume home medication. Monitor lytes and vitals. DVT and GI prophylaxis. Further recommendations as per clinical course of the patient DVT prophylaxis: Subcutaneous heparin GI Prophylaxis: Ppi
[2021-05-22 07:08] LABS: Glucose,Whole Blood 123 mg/dL (75-99)
[2021-05-22 07:35] VITALS: BP 131/80; PULSE 64; RESP 18; TEMP 97.3
[2021-05-22] MEDS: lisinopriL 10 MG TAB PO SCH (07:48)
[2021-05-22] MEDS: TAMSULOSIN 0.4 MG CAP.ER.24H PO SCH (07:48)
[2021-05-22] MEDS: ACETAMINOPHEN TAB 325 MG TAB PO PRN (07:48)
[2021-05-22] MEDS: PANTOPRAZOLE 40 MG TABLET PO SCH (07:48)
[2021-05-22] MEDS: ATORVASTATIN 20 MG TAB PO SCH (07:48)
[2021-05-22] MEDS: HEPARIN SODIUM,PORCINE/PF 5,000 UNIT/0.5 ML SYRINGE SQ SCH (07:50)
[2021-05-22] MEDS: SYMBICORT 80-4.5 MCG INHALER INHALATION PRN (09:04)
[2021-05-22] MEDS ORDERED: CIPROFLOXACIN HCL 250 MG TAB PO STA (11:33)
[2021-05-22 11:41] LABS: Glucose,Whole Blood 185 mg/dL (75-99)
--- NOTE | 2021-05-22 12:20 | P.PN ---
Subjective Progress Note Date: 05/22/21 No acute overnight events, most recent PVR is 167, denies any voiding issues. Repeat renal bladder ultrasound showed no pathology Objective - Vital Signs Vital signs: Vital Signs Temp 97.3 F L 05/22/21 07:34 Pulse 64 05/22/21 07:34 Resp 18 05/22/21 07:34 BP 131/80 05/22/21 07:34 Pulse Ox 99 05/22/21 07:34 Intake & Output 05/21/21 05/22/21 05/22/21 18:59 06:59 18:59 Output Total 1 167 Balance -1 -167 Output: Post Void Residual 1 167 Other: Voiding Method Toilet Toilet # Voids 5 0 # Bowel Movements 0 - Constitutional General appearance: Present: no acute distress - Gastrointestinal General gastrointestinal: Present: soft. Absent: distended - Psychiatric Psychiatric: Present: A&O x's 3 - Labs CBC & Chem 7: 05/20/21 07:28 05/20/21 07:28 Labs: Abnormal Lab Results - Last 24 Hours (Table) 05/21/21 05/21/21 05/22/21 Range/Units 16:56 20:33 07:06 POC Glucose (mg/dL) 157 H 165 H 123 H (75-99) mg/dL 05/22/21 Range/Units 11:40 POC Glucose (mg/dL) 185 H (75-99) mg/dL Microbiology - Last 24 Hours (Table) 05/19/21 01:16 Blood Culture - Preliminary Blood No Growth after 72 hours 05/19/21 01:16 Blood Culture - Preliminary Blood No Growth after 72 hours 05/19/21 01:16 Urine Culture - Final Urine,Voided Enterobacter cloacae Assessment and Plan Assessment: 50-year-old male admitted to the hospital with a febrile UTI, has been having elevated PVR at 300-400 range, but denies any voiding issues at this time. This is his second UTI. Repeat PVR today is 167. Renal ultrasound showed no abnormality -Continue Flomax twice a day -Okay for discharge from urology standpoint, can follow-up in 4 weeks
--- NOTE | 2021-05-22 21:55 | P.PN ---
Progress Note - Text Progress Note Date: 05/22/21 REASON FOR FOLLOWUP: Enterobacter urinary tract infection. INTERVAL HISTORY: The patient remains to be afebrile. The patient is feeling better, breathing comfortably. the pt denies having any chest pain or shortness of breath or cough. No abdominal pain or diarrhea. PHYSICAL EXAMINATION: On examination, blood pressure is 140/80 with a pulse of 70. Temperature 98.4. He is 96% on room air. GENERAL DESCRIPTION: General description is a middle-aged male up in the chair in no distress. RESPIRATORY SYSTEM: Unlabored breathing. Clear to auscultation anteriorly. HEART: S1, S2. Regular rate and rhythm. ABDOMEN: Soft. No tenderness. LABS: Urine has been finalized with Enterobacter, which is a sensitive pathogen. DIAGNOSTIC IMPRESSION AND PLAN: Patient with an enterobacter urinary tract infection, failing outpatient macrobid therapy. pt has improved with Rocephin, no IV , will give a dose of cipro and than finishing therapy with oral Cipro. and Close outpatient followup.
== END 2021-05-22 14:14 | disposition home or self-care (01) | DRG 872 ==
LOC: EC 00:36 → 4SSUR 02:18
PROVIDERS: ADMIT Hospitalist; ATTEND Hospitalist
DX: A41.59 Other Gram-negative sepsis (principal); N39.0 Urinary tract infection, site not specified; E11.9 Type 2 diabetes mellitus without complications; M46.40 Discitis, unspecified, site unspecified; E66.9 Obesity, unspecified; G43.909 Migraine, unspecified, not intractable, without status migrainosus; J45.909 Unspecified asthma, uncomplicated; R33.8 Other retention of urine; K21.9 Gastro-esophageal reflux disease without esophagitis; K52.9 Noninfective gastroenteritis and colitis, unspecified; Z20.822 Contact with and (suspected) exposure to COVID-19; Z68.34 Body mass index [BMI] 34.0-34.9, adult; Z79.84 Long term (current) use of oral hypoglycemic drugs; Z79.899 Other long term (current) drug therapy; Z87.440 Personal history of urinary (tract) infections; Z87.891 Personal history of nicotine dependence; Z91.041 Radiographic dye allergy status; Z87.19 Personal history of other diseases of the digestive system
CPT/HCPCS: 36415; 71045; 76770; 80048; 80053; 81001; 83605; 85025; 87040; 87077; 87086; 87186; 87635; 94640; 96360; 99284

== ENCOUNTER → 2021-11-06 | Outpatient (CLI) | payer BC ==
[~2021-11-06] MED LIST: SODIUM CHLORIDE 0.9% 50 ML IVPB ONE; SODIUM CHLORIDE 0.9% 500 ML 500 ML in EMPTY BAG 1 BAG IV PRN; SOTROVIMAB (EUA) 500 MG in SODIUM CHLORIDE 0.9% 100 ML IVPB ONE
[2021-11-06 13:48] VITALS: TEMP 98
[2021-11-06 13:53] VITALS: RESP 16
[2021-11-06 14:31] VITALS: BP 148/90; PULSE 76
== END ==
LOC: PROCWHC3 12:54
PROVIDERS: ATTEND Physician Assistant Medical
DX: U07.1 COVID-19 (principal); E11.9 Type 2 diabetes mellitus without complications; Z91.041 Radiographic dye allergy status
CPT/HCPCS: 96360; Q0247; M0247

== ENCOUNTER → 2022-09-07 | Outpatient (CLI) | payer BC ==
--- NOTE | 2022-09-07 19:53 | CT ---
EXAMINATION TYPE: CT abdomen pelvis wo con CT DLP: 1250.5 mGycm, Automated exposure control for dose reduction was used. DATE OF EXAM: 09/07/2022 6:29 PM COMPARISON: CT abdomen pelvis most recent from CLINICAL INDICATION:Male, 52 years old with history of N39.9 DISORDER OF URINARY SYSTEM, UNSPECIFIED; DISORDER OF URINARY SYSTEM, UNSPECIFIED TECHNIQUE: Axial CT of the abdomen and pelvis. Sagittal and coronal reformats were created on a [employer] workstation. Contrast used: Normal Oral contrast used: with Oral Contrast FINDINGS: LOWER CHEST: Unremarkable ABDOMEN LIVER: Diffusely hypoattenuating parenchyma. GALLBLADDER AND BILE DUCTS: Unremarkable. PANCREAS: Unremarkable. SPLEEN: Unremarkable. ADRENAL GLANDS: Unremarkable. KIDNEYS AND URETERS: No evidence of hydronephrosis. There is a small 3 mm right renal calculus. No ev idence of left renal calculi. PELVIS BLADDER: Partially distended REPRODUCTIVE: Prostate is enlarged in size measuring 4.6 cm in transverse dimension. ABDOMEN & PELVIS STOMACH AND BOWEL: No evidence of bowel obstruction. PERITONEUM: No evidence of pneumoperitoneum or free fluid. VASCULATURE: No evidence of aortic aneurysm. Atherosclerosis of the arterial vasculature. MUSCULOSKELETAL: No acute osseous abnormalities, L3-L4 osteophyte with moderate to severe no spinal c anal narrowing. LYMPH NODES: No gross evidence for lymphadenopathy. SOFT TISSUE/ABDOMINAL WALL: Anterior abdominal wall surgical changes with clips in place. There remai ns diastasis of the rectus abdominis muscle. IMPRESSION: 1. No evidence for obstructive uropathy. 2. Nonobstructing right renal calculus. 3. Prostatomegaly, correlate serum PSA. 4. Hepatic steatosis. 5. Moderate to severe L3-L4 spinal canal narrowing secondary to osteophyte and degeneration changes.
== END | disposition home or self-care (01) ==
LOC: RADCTMAIN 18:09
PROVIDERS: ATTEND Urology
DX: N20.0 Calculus of kidney (principal); K76.0 Fatty (change of) liver, not elsewhere classified; M25.78 Osteophyte, vertebrae; M48.061 Spinal stenosis, lumbar region without neurogenic claudication; M47.816 Spondylosis without myelopathy or radiculopathy, lumbar region; N39.9 Disorder of urinary system, unspecified
CPT/HCPCS: 74176

== ENCOUNTER 2022-09-30 18:19 | Emergency (ER) | payer BC ==
--- NOTE | 2022-09-30 19:28 | XR ---
EXAMINATION TYPE: XR chest 2V DATE OF EXAM: 09/30/2022 6:51 PM COMPARISON: Chest radiographs from 05/19/2021. TECHNIQUE: XR chest 2V Frontal and lateral views of the chest. CLINICAL INDICATION:Male, 52 years old with history of sob; FINDINGS: Lungs/Pleura: There is no evidence of pleural effusion, focal consolidation, or pneumothorax. Pulmonary vascularity: Unremarkable. Heart/mediastinum: Cardiomediastinal silhouette is unremarkable. Musculoskeletal: No acute osseous pathology. IMPRESSION: No acute cardiopulmonary disease/process.
[2022-09-30] MEDS ORDERED: ALBUTEROL NEBULIZED 2.5 MG/3 ML INHALATION STA (21:59)
[2022-09-30] MEDS ORDERED: IPRATROPIUM 0.5 MG/2.5 ML NEBU INHALATION STA (21:59)
[2022-09-30] MEDS ORDERED: dexAMETHasone 2 MG TAB PO STA (21:59)
[2022-09-30 22:25] LABS: Basophils # (A) 0.1 k/uL (0-0.2); Basophils % (A) 1 %; Eosinophils # (A) 0.2 k/uL (0-0.7); Eosinophils % (A) 2 %; HCT 50.5 % (39.0-53.0); HGB 17.4 gm/dL (13.0-17.5); Lymphocytes % (A) 35 %; MCH 29.7 pg (25.0-35.0); MCHC 34.4 g/dL (31.0-37.0); MCV 86.3 fL (80.0-100.0); Mean Platelet Volume 7.6; Monocytes # (A) 0.5 k/uL (0-1.0); Monocytes % (A) 5 %; Neutrophils # (A) 6.4 k/uL (1.3-7.7); Neutrophils % (A) 57 %; Platelet Count 232 k/uL (150-450); RBC 5.85 m/uL (4.30-5.90); RDW 13.1 % (11.5-15.5); WBC 11.3 k/uL (3.8-10.6)
[2022-09-30 22:34] LABS: ALT 73 U/L (4-49); AST 38 U/L (17-59); African American GFR (CKD) >90 (>60 ml/min/1.73 sqM); Albumin 4.3 g/dL (3.5-5.0); Alkaline Phosphatase 129 U/L (38-126); Anion Gap 10 mmol/L; Blood Urea Nitrogen 17 mg/dL (9-20); Calcium 9.3 mg/dL (8.4-10.2); Carbon Dioxide 21 mmol/L (22-30); Chloride 104 mmol/L (98-107); Glucose 226 mg/dL (74-99); Magnesium 1.7 mg/dL (1.6-2.3); Non-African American GFR(CKD) >90 (>60 ml/min/1.73 sqM); Potassium 4.5 mmol/L (3.5-5.1); Sodium 135 mmol/L (137-145); Total Bilirubin 0.5 mg/dL (0.2-1.3); Total Protein 7.3 g/dL (6.3-8.2)
--- NOTE | 2022-09-30 23:20 | ED ---
General Adult HPI - General Chief complaint: Upper Respiratory Infection Stated complaint: SOB, thrush Time Seen by Provider: 09/30/22 21:43 Source: patient Mode of arrival: ambulatory Limitations: no limitations - History of Present Illness Initial comments: This is a 52-year-old male with a past medical history including diabetes and asthma presents emergency department for shortness of breath and chest discomfort. The patient stated that approximately 2 weeks ago he stated that he felt as if he had an upper respiratory infection with fevers and chills but stated that over the last 2 weeks he has had a sensation that he has "junk" in his chest. The patient stated that his been persistent the last 2 weeks and not improving. The patient was seen in the clinic 1 week ago and was given a dose of steroids and a Z-Kin for a diagnosis of bronchitis however no workup was done at that time. The patient came back to the emergency department today to be evaluated to make sure he did not have pneumonia or any other upper respiratory infection. The patient remained stable without any acute complaints. The patient denied any nausea, vomiting, fevers and chills. - Related Data Home Medications Medication Instructions Recorded Confirmed Omeprazole [PriLOSEC] 20 mg PO DAILY 02/03/16 05/19/21 Empagliflozin [Jardiance] 25 mg PO DAILY 08/12/19 05/19/21 Fluticasone/Vilanterol [Breo 1 puff INHALATION RT-DAILY PRN 08/12/19 05/19/21 Ellipta 100-25 Mcg Inhaler] lisinopriL [Zestril] 10 mg PO DAILY 11/18/20 05/19/21 Atorvastatin [Lipitor] 20 mg PO DAILY 05/19/21 05/19/21 tadalafiL 20 mg PO DIRECTED 05/19/21 05/19/21 Previous Rx's Medication Instructions Recorded Ciprofloxacin HCl [Cipro] 500 mg PO Q12H 10 Days #20 tab 05/21/21 Acetaminophen Tab [Tylenol] 650 mg PO Q6HR PRN tab 05/22/21 Tamsulosin [Flomax] 0.4 mg PO BID #60 cap.er.24h 05/22/21 dexAMETHasone [Decadron] 10 mg PO ONCE #2.5 tab 09/30/22 Allergies Allergy/AdvReac Type Severity Reaction Status Date / Time Iodinated Contrast Media AdvReac "PASSED Verified 09/30/22 18:33 [Iodinated Contrast Media - OUT, after IV Dye] fluroscopy" Review of Systems ROS Statement: Those systems with pertinent positive or pertinent negative responses have been documented in the HPI. ROS Other: All systems not noted in ROS Statement are negative. Past Medical History Past Medical History: Asthma, Diabetes Mellitus, GERD/Reflux Additional Past Medical History / Comment(s): hx migraines, constipation and bloating, History of Any Multi-Drug Resistant Organisms: None Reported Past Surgical History: Hernia Repair Additional Past Surgical History / Comment(s): ARTHROSCOPIC RT KNEE , rt SHOULDER surgery, Past Anesthesia/Blood Transfusion Reactions: Motion Sickness Past Psychological History: No Psychological Hx Reported Smoking Status: Former smoker Past Alcohol Use History: Occasional Past Drug Use History: None Reported - Past Family History Father Family Medical History: Cancer Additional Family Medical History / Comment(s): Melanoma Mother Family Medical History: Coronary Artery Disease (CAD) Additional Family Medical History / Comment(s): Mother at the age of 81 yr s. She had 3 vessel CABG and cardiac stents General Exam Limitations: no limitations General appearance: alert, in no apparent distress Head exam: Present: atraumatic, normocephalic, normal inspection Eye exam: Present: normal appearance, PERRL Pupils: Present: normal accommodation ENT exam: Present: normal exam, normal oropharynx, mucous membranes moist Neck exam: Present: normal inspection, full ROM Respiratory exam: Present: wheezes Cardiovascular Exam: Present: regular rate, normal rhythm, normal heart sounds GI/Abdominal exam: Present: soft, normal bowel sounds Extremities exam: Present: normal inspection, full ROM, normal capillary refill Back exam: Present: normal inspection, full ROM Neurological exam: Present: alert, oriented X3, CN II-XII intact Psychiatric exam: Present: normal affect, normal mood Skin exam: Present: warm, dry Course Vital Signs 09/30/22 09/30/22 09/30/22 18:31 22:15 23:26 Temperature 98.1 F Pulse Rate 85 89 Respiratory 20 18 Rate Blood Pressure 158/102 O2 Sat by Pulse 97 Oximetry 09/30/22 23:30 Temperature 97.8 F Pulse Rate 85 Respiratory 18 Rate Blood Pressure 131/88 O2 Sat by Pulse 98 Oximetry Medical Decision Making - Medical Decision Making Was pt. sent in by a medical professional or institution? @ -No Did you speak to anyone other than the patient for history? @ -Patient's Did you review nursing and triage notes? @ -Nursing triage notes were reviewed Were old charts reviewed? @ -No Differential Diagnosis? @ -Upper respiratory infection, asthma exacerbation, pneumonia, pneumothorax EKG interpreted by me (3pts min.)? @ -[none] X-rays interpreted by me (1pt min.)? @ -Chest x-ray was performed and was interpreted by myself. Chest x-ray did not show any acute process. CT interpreted by me (1pt min.)? @ -[none] U/S interpreted by me (1pt. min.)? @ -[none] What testing was considered but not performed? (CT, X-rays, U/S, labs)? Why? @None What meds were considered but not given? Why? @ -[none] Did you discuss the management of the patient with other professionals? @ -No Did you reconcile home meds? @ -[none] Was smoking cessation discussed for >3mins.? @ -[none] Was critical care preformed (if so, how long)? @ -[none] Were there social determinants of health that impacted care today? How? (Homelessness, low income, unemployed, alcoholism, drug addiction, transportation, low edu. Level, literacy, decrease access to med. care, [facility], rehab)? @ -No Was there de-escalation of care discussed even if they declined? (Discuss DNR or withdrawal of care, Hospice)? @ -No What co-morbidities impacted this encounter? (DM, HTN, Smoking, COPD, CAD, Cancer, CVA, Hep., AIDS, mental health diagnosis, sleep apnea, morbid obesity)? @ -Diabetes, asthma Was patient admitted / discharged? @ -The patient was seen and evaluated in the emergency department. Physical exam, the patient was resting in bed without any acute distress. Vital signs were stable. The patient did have some mild x-ray wheezes heard on exam. The patient was given albuterol and ipratropium as well as a dose of steroids. All workup was negative including swabs, laboratory workup and chest x-ray. The pat ient continued to remain stable and on reevaluation stated that he likely had a asthma exacerbation. The patient was advised to continue take his albuterol inhaler at home and was given a dose of dexamethasone prescribed to the pharmacy to take in 48 hours. The patient was advised to continue to monitor his symptoms and to report back to the emergency department if his breathing became acutely worse. The patient as well as his are agreeable to this and all depressions were answered. The patient was discharged home in stable condition. Undiagnosed new problem with uncertain prognosis? @ -[none] Drug Therapy requiring intensive monitoring for toxicity (Heparin, Nitro, Insulin, Cardizem)? @ -[none] Were any procedures done? @ -[none] Diagnosis/symptom? @ -Asthma exacerbation Acute, or Chronic, or Acute on Chronic? @ -Acute Uncomplicated (without systemic symptoms) or Complicated (systemic symptoms)? @ -Uncomplicated Side effects of treatment? @ -[none] Exacerbation, Progression, or Severe Exacerbation] @ -Exacerbation Poses a threat to life or bodily function? @ -[no] - Lab Data Result diagrams: 09/30/22 21:59 09/30/22 21:59 Lab Results 09/30/22 09/30/22 09/30/22 Range/Units 18:37 21:51 21:59 WBC 11.3 H (3.8-10.6) k/uL RBC 5.85 (4.30-5.90) m/uL Hgb 17.4 (13.0-17.5) gm/dL Hct 50.5 (39.0-53.0) % MCV 86.3 (80.0-100.0) fL MCH 29.7 (25.0-35.0) pg MCHC 34.4 (31.0-37.0) g/dL RDW 13.1 (11.5-15.5) % Plt Count 232 (150-450) k/uL MPV 7.6 Neutrophils % 57 % Lymphocytes % 35 % Monocytes % 5 % Eosinophils % 2 % Basophils % 1 % Neutrophils # 6.4 (1.3-7.7) k/uL Lymphocytes # 4.0 (1.0-4.8) k/uL Monocytes # 0.5 (0-1.0) k/uL Eosinophils # 0.2 (0-0.7) k/uL Basophils # 0.1 (0-0.2) k/uL D-Dimer (<0.60) mg/L FEU Sodium (137-145) mmol/L Potassium (3.5-5.1) mmol/L Chloride (98-107) mmol/L Carbon Dioxide (22-30) mmol/L Anion Gap mmol/L BUN (9-20) mg/dL Creatinine (0.66-1.25) mg/dL Est GFR (CKD-EPI)AfAm (>60 ml/min/1.73 sqM) Est GFR (CKD-EPI)NonAf (>60 ml/min/1.73 sqM) Glucose (74-99) mg/dL Calcium (8.4-10.2) mg/dL Magnesium (1.6-2.3) mg/dL Total Bilirubin (0.2-1.3) mg/dL AST (17-59) U/L ALT (4-49) U/L Alkaline Phosphatase (38-126) U/L Troponin I (0.000-0.034) ng/mL NT-Pro-B Natriuret Pep pg/mL Total Protein (6.3-8.2) g/dL Albumin (3.5-5.0) g/dL Influenza Type A (PCR) Not Detected (Not Detectd) Influenza Type B (PCR) Not Detected (Not Detectd) RSV (PCR) Not Detected (Not Detectd) SARS-CoV-2 (PCR) Not Detected (Not Detectd) Group A Strep (PCR) NOT DETECTED (Not Detectd) 09/30/22 09/30/22 09/30/22 Range/Units 21:59 21:59 21:59 WBC (3.8-10.6) k/uL RBC (4.30-5.90) m/uL Hgb (13.0-17.5) gm/dL Hct (39.0-53.0) % MCV (80.0-100.0) fL MCH (25.0-35.0) pg MCHC (31.0-37.0) g/dL RDW (11.5-15.5) % Plt Count (150-450) k/uL MPV Neutrophils % % Lymphocytes % % Monocytes % % Eosinophils % % Basophils % % Neutrophils # (1.3-7.7) k/uL Lymphocytes # (1.0-4.8) k/uL Monocytes # (0-1.0) k/uL Eosinophils # (0-0.7) k/uL Basophils # (0-0.2) k/uL D-Dimer 0.27 (<0.60) mg/L FEU Sodium 135 L (137-145) mmol/L Potassium 4.5 (3.5-5.1) mmol/L Chloride 104 (98-107) mmol/L Carbon Dioxide 21 L (22-30) mmol/L Anion Gap 10 mmol/L BUN 17 (9-20) mg/dL Creatinine 0.69 (0.66-1.25) mg/dL Est GFR (CKD-EPI)AfAm >90 (>60 ml/min/1.73 sqM) Est GFR (CKD-EPI)NonAf >90 (>60 ml/min/1.73 sqM) Glucose 226 H (74-99) mg/dL Calcium 9.3 (8.4-10.2) mg/dL Magnesium 1.7 (1.6-2.3) mg/dL Total Bilirubin 0.5 (0.2-1.3) mg/dL AST 38 (17-59) U/L ALT 73 H (4-49) U/L Alkaline Phosphatase 129 H (38-126) U/L Troponin I <0.012 (0.000-0.034) ng/mL NT-Pro-B Natriuret Pep pg/mL Total Protein 7.3 (6.3-8.2) g/dL Albumin 4.3 (3.5-5.0) g/dL Influenza Type A (PCR) (Not Detectd) Influenza Type B (PCR) (Not Detectd) RSV (PCR) (Not Detectd) SARS-CoV-2 (PCR) (Not Detectd) Group A Strep (PCR) (Not Detectd) 09/30/22 Range/Units 21:59 WBC (3.8-10.6) k/uL RBC (4.30-5.90) m/uL Hgb (13.0-17.5) gm/dL Hct (39.0-53.0) % MCV (80.0-100.0) fL MCH (25.0-35.0) pg MCHC (31.0-37.0) g/dL RDW (11.5-15.5) % Plt Count (150-450) k/uL MPV Neutrophils % % Lymphocytes % % Monocytes % % Eosinophils % % Basophils % % Neutrophils # (1.3-7.7) k/uL Lymphocytes # (1.0-4.8) k/uL Monocytes # (0-1.0) k/uL Eosinophils # (0-0.7) k/uL Basophils # (0-0.2) k/uL D-Dimer (<0.60) mg/L FEU Sodium (137-145) mmol/L Potassium (3.5-5.1) mmol/L Chloride (98-107) mmol/L Carbon Dioxide (22-30) mmol/L Anion Gap mmol/L BUN (9-20) mg/dL Creatinine (0.66-1.25) mg/dL Est GFR (CKD-EPI)AfAm (>60 ml/min/1.73 sqM) Est GFR (CKD-EPI)NonAf (>60 ml/min/1.73 sqM) Glucose (74-99) mg/dL Calcium (8.4-10.2) mg/dL Magnesium (1.6-2.3) mg/dL Total Bilirubin (0.2-1.3) mg/dL AST (17-59) U/L ALT (4-49) U/L Alkaline Phosphatase (38-126) U/L Troponin I (0.000-0.034) ng/mL NT-Pro-B Natriuret Pep 22 pg/mL Total Protein (6.3-8.2) g/dL Albumin (3.5-5.0) g/dL Influenza Type A (PCR) (Not Detectd) Influenza Type B (PCR) (Not Detectd) RSV (PCR) (Not Detectd) SARS-CoV-2 (PCR) (Not Detectd) Group A Strep (PCR) (Not Detectd) Disposition Clinical Impression: Asthma exacerbation Disposition: HOME SELF-CARE Condition: Stable Instructions (If sedation given, give patient instructions): Asthma (DC) Prescriptions: dexAMETHasone [Decadron] 10 mg PO ONCE #2.5 tab Is patient prescribed a controlled substance at d/c from ED?: No Referrals: Le Camargo MD [Primary Care Provider] - 1-2 days Time of Disposition: 23:10
[2022-09-30 23:30] VITALS: RESP 18
[2022-09-30 23:34] VITALS: BP 131/88; PULSE 85; TEMP 97.8
== END 2022-09-30 23:35 | disposition home or self-care (01) ==
LOC: EC 18:19
DX: J45.901 Unspecified asthma with (acute) exacerbation (principal); E11.9 Type 2 diabetes mellitus without complications; K21.9 Gastro-esophageal reflux disease without esophagitis; Z79.84 Long term (current) use of oral hypoglycemic drugs; Z79.899 Other long term (current) drug therapy; Z20.822 Contact with and (suspected) exposure to COVID-19; Z87.891 Personal history of nicotine dependence; Z88.8 Allergy status to other drugs, medicaments and biological substances
CPT/HCPCS: 36415; 94640; 87651; 85379; 83880; 80053; 83735; 84484; 85025; 87636; 71046; 99285; J8540

== ENCOUNTER 2023-01-22 21:48 | Emergency (ER) | payer BC ==
[2023-01-22] MEDS ORDERED: SODIUM CHLORIDE 0.9% 1,000 ML IV STA (21:59)
[2023-01-22] MEDS ORDERED: FAMOTIDINE 20 MG/2 ML VIAL IV STA (22:05)
[2023-01-22] MEDS ORDERED: diphenhydrAMINE 50 MG/ML 1 ML VIAL IVP STA (22:05)
[2023-01-22] MEDS ORDERED: methylPREDNISolone SOD SUCCI 125 MG/2 ML VIAL IV STA (22:05)
[2023-01-22] MEDS ORDERED: ONDANSETRON 4 MG/2 ML VIAL IVP STA (22:36)
[2023-01-22 23:00] LABS: Appearance,Urine Bloody (Clear); Color,Urine Dark Red
[2023-01-22 23:03] LABS: RBC,Urine >182 /hpf (0-5); WBC,Urine >182 /hpf (0-5)
[2023-01-22 23:03] LABS: ALT 65 U/L (4-49); AST 44 U/L (17-59); African American GFR (CKD) >90 (>60 ml/min/1.73 sqM); Albumin 3.8 g/dL (3.5-5.0); Alkaline Phosphatase 116 U/L (38-126); Anion Gap 12 mmol/L; Blood Urea Nitrogen 19 mg/dL (9-20); Calcium 8.5 mg/dL (8.4-10.2); Carbon Dioxide 19 mmol/L (22-30); Chloride 105 mmol/L (98-107); Glucose 258 mg/dL (74-99); Magnesium 1.9 mg/dL (1.6-2.3); Non-African American GFR(CKD) 82 (>60 ml/min/1.73 sqM); Partial Thromboplastin Time 20.6 sec (22.0-30.0); Prothrombin Time 10.7 sec (9.0-12.0); Sodium 136 mmol/L (137-145); Total Bilirubin 0.3 mg/dL (0.2-1.3); Total Protein 6.4 g/dL (6.3-8.2)
[2023-01-22 23:13] LABS: Basophils # (A) 0.1 k/uL (0-0.2); Basophils % (A) 1 %; Eosinophils # (A) 0.1 k/uL (0-0.7); Eosinophils % (A) 1 %; HCT 45.1 % (39.0-53.0); HGB 15.1 gm/dL (13.0-17.5); Lymphocytes # (A) 4.2 k/uL (1.0-4.8); Lymphocytes % (A) 39 %; MCH 30.1 pg (25.0-35.0); MCHC 33.5 g/dL (31.0-37.0); MCV 89.7 fL (80.0-100.0); Mean Platelet Volume 7.7; Monocytes % (A) 9 %; Neutrophils # (A) 5.3 k/uL (1.3-7.7); Neutrophils % (A) 49 %; Platelet Count 313 k/uL (150-450); RBC 5.02 m/uL (4.30-5.90); RDW 13.1 % (11.5-15.5); WBC 10.9 k/uL (3.8-10.6)
--- NOTE | 2023-01-22 23:14 | US ---
EXAMINATION TYPE: US renals and bladder DATE OF EXAM: 01/22/2023 COMPARISON: 05/21/21, CT 09/08/2022 CLINICAL INDICATION: Male, 52 years old with history of recent TURP; TURP 12/22/22 EXAM MEASUREMENTS: Right Kidney: 11.4 x 6.2 x 5.8 cm Left Kidney: 14.3 x 5.9 x 6.7 cm Right Kidney: No hydronephrosis or masses seen Left Kidney: No hydronephrosis or masses seen Bladder: Hypoechoic heterogeneous area near inf portion of bladder, this is not definitively correlat e with the morphology of the prostate gland on prior CT on 09/07/2022. The median lobe hypertrophy astrid nges seen on prior are not as prominent as this masslike area on today's exam. Bilateral Jets seen: No IMPRESSION: Masslike area within the urinary bladder, Given recent surgical changes this masslike area within the urinary bladder is favored represent tumefactive blood products. Further evaluation with CT urogram is recommended.
--- NOTE | 2023-01-22 23:15 | XR ---
EXAMINATION TYPE: XR chest 2V DATE OF EXAM: 01/22/2023 10:59 PM COMPARISON: Chest radiographs from 09/30/2022 TECHNIQUE: XR chest 2V Frontal and lateral views of the chest. CLINICAL INDICATION:Male, 52 years old with history of syncope; FINDINGS: Lungs/Pleura: There is flattening of the diaphragm with increased lucency of the lungs. No evidence o f pneumothorax, pleural effusion or focal consolidation. Pulmonary vascularity: Unremarkable. Heart/mediastinum: Cardiomediastinal silhouette is unremarkable. Musculoskeletal: No acute osseous pathology. IMPRESSION: 1. No acute cardiopulmonary disease process. 2. COPD changes.
--- NOTE | 2023-01-22 23:47 | CT ---
EXAMINATION TYPE: CT abdomen pelvis w con CT DLP: 2121.7 mGycm, Automated exposure control for dose reduction was used. DATE OF EXAM: 01/22/2023 11:35 PM COMPARISON: Ultrasound same day. CLINICAL INDICATION:Male, 52 years old with history of recent TURP. syncope/bleeding; RECENT TURP, SY NCOPE & BLEEDING. TECHNIQUE: Axial CT of the abdomen and pelvis. Sagittal and coronal reformats were created on a [email or web address] workstation. Contrast used:100 mL of Isovue 300 with IV Contrast, Oral contrast used: without Oral Contrast FINDINGS: LOWER CHEST: Unremarkable ABDOMEN LIVER: Diffusely hypoattenuating parenchyma. GALLBLADDER AND BILE DUCTS: Unremarkable. PANCREAS: Unremarkable. SPLEEN: Unremarkable. ADRENAL GLANDS: Unremarkable. KIDNEYS AND URETERS: No evidence of hydronephrosis or renal calculus. The ureters are unremarkable. PELVIS BLADDER/REPRODUCTIVE: Urinary bladder is partially distended and there is high density probable blood products within the the urinary bladder lumen. These findings are likely secondary to post TURP umanzor ges and measure up to 5.8 x 3.4 x 4.5 cm. ABDOMEN & PELVIS STOMACH AND BOWEL: Small hiatal hernia, duodenum is unremarkable. No evidence of bowel obstruction. The appendix is normal. PERITONEUM/RETROPERITONEUM: No evidence of pneumoperitoneum or free fluid. VASCULATURE: No evidence of aortic aneurysm. MUSCULOSKELETAL: No acute osseous abnormalities. Moderate disc degeneration changes are present throu ghout the thoracolumbar spine. LYMPH NODES: No gross evidence for lymphadenopathy. SOFT TISSUE/ABDOMINAL WALL: Postsurgical changes of ventral wall with hernia repair and anchors in pl jennifer. IMPRESSION: 1. Post TURP changes with suspected hematoma within the bladder lumen. 2. Hepatic steatosis. 3. Small hiatal hernia. 4. Postsurgical changes anterior abdominal wall surgical repair anchors.
--- NOTE | 2023-01-23 00:47 | ED ---
General Adult HPI - General Chief complaint: Abdominal Pain Stated complaint: post op complications Time Seen by Provider: 01/22/23 21:56 Source: patient, RN notes reviewed, old records reviewed Mode of arrival: ambulatory Limitations: no limitations - History of Present Illness Initial comments: Patient is a 52-year-old male with past medical history remarkable for asthma, diabetes, GERD with recent TURP procedure completed by Dr. Poe 1 month ago who presents emergency Department complaining of hematuria. Patient states that he had some initial hematuria following the procedure 1 month ago. Had his Jett catheter removed. Was progressing well. Today he recently passed 2 large clots earlier this morning at 10 or 11 AM. Since that time has been having more tai hematuria. Denies any chest pain or shortness of breath. Patient states he was sleeping and nodding off in the waiting room. There is concern that he was having syncopal episodes so they brought him to trauma bay 2. Patient's current only complaint is that he is about to have a bowel movement. States he feels like he has to have a large bowel movement and is requesting to go at this time. His no other acute complaints at this time. States he does not believe he had syncopal episodes in the waiting room. - Related Data Home Medications Medication Instructions Recorded Confirmed Omeprazole [PriLOSEC] 20 mg PO DAILY 02/03/16 05/19/21 Empagliflozin [Jardiance] 25 mg PO DAILY 08/12/19 05/19/21 Fluticasone/Vilanterol [Breo 1 puff INHALATION RT-DAILY PRN 08/12/19 05/19/21 Ellipta 100-25 Mcg Inhaler] lisinopriL [Zestril] 10 mg PO DAILY 11/18/20 05/19/21 Atorvastatin [Lipitor] 20 mg PO DAILY 05/19/21 05/19/21 tadalafiL 20 mg PO DIRECTED 05/19/21 05/19/21 Previous Rx's Medication Instructions Recorded Ciprofloxacin HCl [Cipro] 500 mg PO Q12H 10 Days #20 tab 05/21/21 Acetaminophen Tab [Tylenol] 650 mg PO Q6HR PRN tab 05/22/21 Tamsulosin [Flomax] 0.4 mg PO BID #60 cap.er.24h 05/22/21 dexAMETHasone [Decadron] 10 mg PO ONCE #2.5 tab 09/30/22 Allergies Allergy/AdvReac Type Severity Reaction Status Date / Time Iodinated Contrast Media AdvReac "PASSED Verified 01/22/23 21:57 [Iodinated Contrast Media - OUT, after IV Dye] fluroscopy" Review of Systems ROS Statement: Those systems with pertinent positive or pertinent negative responses have been documented in the HPI. Review of Systems: CONST: Denies fever EYES: Denies blurry vision ENT: Denies nasal congestion C/V: Denies Chest pain RESP: Denies shortness of breath GI: Denies abdominal pain : Endorses hematuria SKIN: Denies rash. MSK: Denies joint pain. NEURO: Denies headache ROS Other: All systems not noted in ROS Statement are negative. Past Medical History Past Medical History: Asthma, Diabetes Mellitus, GERD/Reflux Additional Past Medical History / Comment(s): hx migraines, constipation and bloating, History of Any Multi-Drug Resistant Organisms: None Reported Past Surgical History: Hernia Repair, Prostate Surgery Additional Past Surgical History / Comment(s): ARTHROSCOPIC RT KNEE , rt SHOULDER surgery, Past Anesthesia/Blood Transfusion Reactions: Motion Sickness Past Psychological History: No Psychological Hx Reported Smoking Status: Former smoker Past Alcohol Use History: Occasional Past Drug Use History: None Reported - Past Family History Father Family Medical History: Cancer Additional Family Medical History / Comment(s): Melanoma Mother Family Medical History: Coronary Artery Disease (CAD) Additional Family Medical History / Comment(s): Mother at the age of 81 yrs. She had 3 vessel CABG and cardiac stents General Exam - General Exam Comments Initial Comments: General: Appears in no acute distress. HEAD: Normal with no signs of head trauma. EYES: PERRLA, EOMI, conjunctiva normal, no discharge. Pupils 3 mm and equal bilaterally. ENT: Hearing grossly intact, normal oropharynx. RESPIRATORY: Clear breath sounds bilaterally. No wheezes, rales, or rhonchi. C/V: Regular rate and rhythm. S1 and S2 auscultated, no edema, peripheral pulses 2+ and intact throughout ABD: Abdomen soft, nondistended. No obvious tenderness to palpation. No guarding. No rebound tenderness. EXT: Normal range of motion, no obvious deformity SKIN: No rashes or lesions observed on exposed skin. NEURO: Alert and oriented 4. GCS of 15. No focal deficits. Limitations: no limitations Course Vital Signs 01/22/23 01/22/23 01/22/23 21:57 22:25 22:30 Temperature 97.9 F Pulse Rate 51 L 79 80 Respiratory 20 11 L Rate Blood Pressure 104/44 106/73 105/73 O2 Sat by Pulse 98 97 97 Oximetry 01/22/23 01/22/23 01/22/23 22:40 22:50 23:00 Temperature Pulse Rate 74 76 71 Respiratory 15 17 16 Rate Blood Pressure 114/77 122/75 108/67 O2 Sat by Pulse 93 L 93 L 93 L Oximetry 01/22/23 01/22/23 01/23/23 23:10 23:20 00:53 Temperature 98.2 F Pulse Rate 73 86 Respiratory 17 18 Rate Blood Pressure 109/68 105/65 114/67 O2 Sat by Pulse 97 Oximetry Medical Decision Making - Medical Decision Making Was pt. sent in by a medical professional or institution (, JACKIE, QUALITY COORDINATOR, urgent care, hospital, or [place] [facility] facility...) When possible be specific @ -No Did you speak to anyone other than the patient for history (EMS, parent, family, police, friend...)? What history was obtained from this source @ -No Did you review nursing and triage notes (agree or disagree)? Why? @ -I reviewed and agree with nursing and triage notesExcept that the patient does not have abdominal pain but rather the feeling he is going to have a bowel movement. Were old charts reviewed (outside hosp., previous admission, EMS record, old EKG, old radiological studies, urgent care reports/EKG's, [place] [facility] [place] records)? Report findings @ -No old charts were reviewed Differential Diagnosis (chest pain, altered mental status, abdominal pain women, abdominal pain men, vaginal bleeding, weakness, fever, dyspnea, syncope, headache, dizziness, GI bleed, back pain, seizure, CVA, palpatations, mental health, musculoskeletal)? @ -Postop complication, hematuria, bilateral hematoma, bladder rupture, UTI, blood loss anemia, syncope this list is not all inclusive EKG interpreted by me (3pts min.). @ -As above X-rays interpreted by me (1pt min.). @ -Chest x-ray reveals no obvious acute cardio pulmonary process. CT interpreted by me (1pt min.). @ -CT abdomen and pelvis reveals a bladder wall hematoma. No other acute findings. U/S interpreted by me (1pt. min.). @ -Renal ultrasound reveals a masslike area in the interim bladder is interpreted by radiology. They recommend further imaging. What testing was considered but not performed or refused? (CT, X-rays, U/S, labs)? Why? @ -None What meds were considered but not given or refused? Why? @ -None Did you discuss the management of the patient with other professionals (professionals i.e. DrIlana, PA, QUALITY COORDINATOR, lab, RT, psych nurse, social work instructor, enamel drier, teacher, correctional officer captain, case hardener)? Give summary @ -No Was smoking cessation discussed for >3mins.? @ -No Was critical care preformed (if so, how long)? @ -No Were there social determinants of health that impacted care today? How? (Homelessness, low income, unemployed, alcoholism, drug addiction, transportation, low edu. Level, literacy, decrease access to med. care, assisted, rehab)? @ -No Was there de-escalation of care discussed even if they declined (Discuss DNR or withdrawal of care, Hospice)? DNR status @ -No What co-morbidities impacted this encounter? (DM, HTN, Smoking, COPD, CAD, Cancer, CVA, ARF, Chemo, Hep., AIDS, mental health diagnosis, sleep apnea, mor bid obesity)? @ -recent TURP Was patient admitted / discharged? Hospital course, mention meds given and route, prescriptions, significant lab abnormalities, going to OR and other pertinent info. @ -Based on the patient's presentation and physical exam, I'm concerned for possible syncopal episode versus blood loss anemia for what occurred in the waiting room. Patient states he has had to take a bowel movement which could also be the source of it. I'm concerned also for possible dysuria, hematuria, bladder issue considering the tai hematuria starting earlier today. We will obtain abdominal laboratory studies as well as screening EKG and chest x-ray. We'll obtain imaging the abdomen and pelvis. He'll be symptomatically she with a 1 L fluid bolus at this time. He will also be given IV Zofran. Patient was in agreement this plan. Vital signs within acceptable limits. Patient did have a bowel movement and is feeling much improved afterwards. Patient does have a possible iodine contrast ALLERGY but does not appear anaphylactic in nature. He will be given premedication before receiving his CT imaging. Laboratory studies returned remarkable for mild leukocytosis of 10. Hemoglobin within normal limits. Coags within normal limits. Elevated glucose of 258. Troponin undetectable. Hematuria on urinalysis. Imaging remarkable for a bladder wall hematoma. On reevaluation, patient is feeling improved. Ambulates without difficulty. I updated him on the results of his imaging. At this time I did recheck to Dr. Stephens discuss proper management for the patient. He was in agreement discharge home. Told him to expect to continue to pass bloody urine. It should subside in a few days. Recommended follow-up with Dr. vale. Strict return precautions discussed with the patient and I updated him on these instructions. He was in agreement this plan. We did discuss that his sweaty, syncopal type episode in the waiting room air and related to the vagal response from him needing a bowel movement. He states he believes this is true, or he also states he was tired which is why he may have been nodding off. Either way, he has no neurological complaints at this time. He was in agreement discharge home with strict return precautions. I instructed the patient to follow up with their PCP in the next 1-3 days. I explained that the patient should return to the emergency department if they exp erience any worsening symptoms. Strict return precautions were discussed with the patient. The patient expressed understanding of these instructions. I answered all questions that the patient had. The patient was discharged home in good condition with their prescriptions and follow up information. Undiagnosed new problem with uncertain prognosis? @ -No Drug Therapy requiring intensive monitoring for toxicity (Heparin, Nitro, Insulin, Cardizem)? @ -No Were any procedures done? @ -No Diagnosis/symptom? @ -Bladder wall hematoma, hematuria, possible syncopal episode Acute, or Chronic, or Acute on Chronic? @ -Acute Uncomplicated (without systemic symptoms) or Complicated (systemic symptoms)? @ -Uncomplicated Side effects of treatment? @ -No Exacerbation, Progression, or Severe Exacerbation? @ -No Poses a threat to life or bodily function? How? (Chest pain, [place], [place], pneumonia, PE, COPD, DKA, ARF, appy, cholecystitis, CVA, Diverticulitis, Homicidal, Suicidal, threat to staff... and all critical care pts) @ -No - Lab Data Result diagrams: 01/22/23 22:08 01/22/23 22:08 Lab Results 01/22/23 01/22/23 01/22/23 Range/Units 22:08 22:08 22:08 WBC 10.9 H (3.8-10.6) k/uL RBC 5.02 (4.30-5.90) m/uL Hgb 15.1 (13.0-17.5) gm/dL Hct 45.1 (39.0-53.0) % MCV 89.7 (80.0-100.0) fL MCH 30.1 (25.0-35.0) pg MCHC 33.5 (31.0-37.0) g/dL RDW 13.1 (11.5-15.5) % Plt Count 313 (150-450) k/uL MPV 7.7 Neutrophils % 49 % Lymphocytes % 39 % Monocytes % 9 % Eosinophils % 1 % Basophils % 1 % Neutrophils # 5.3 (1.3-7.7) k/uL Lymphocytes # 4.2 (1.0-4.8) k/uL Monocytes # 1.0 (0-1.0) k/uL Eosinophils # 0.1 (0-0.7) k/uL Basophils # 0.1 (0-0.2) k/uL PT 10.7 (9.0-12.0) sec INR 1.0 (<1.2) APTT 20.6 L (22.0-30.0) sec Sodium 136 L (137-145) mmol/L Potassium 4.0 (3.5-5.1) mmol/L Chloride 105 (98-107) mmol/L Carbon Dioxide 19 L (22-30) mmol/L Anion Gap 12 mmol/L BUN 19 (9-20) mg/dL Creatinine 1.04 (0.66-1.25) mg/dL Est GFR (CKD-EPI)AfAm >90 (>60 ml/min/1.73 sqM) Est GFR (CKD-EPI)NonAf 82 (>60 ml/min/1.73 sqM) Glucose 258 H (74-99) mg/dL Calcium 8.5 (8.4-10.2) mg/dL Magnesium 1.9 (1.6-2.3) mg/dL Total Bilirubin 0.3 (0.2-1.3) mg/dL AST 44 (17-59) U/L ALT 65 H (4-49) U/L Alkaline Phosphatase 116 (38-126) U/L Troponin I (0.000-0.034) ng/mL Total Protein 6.4 (6.3-8.2) g/dL Albumin 3.8 (3.5-5.0) g/dL Urine Color Urine Appearance (Clear) Urine RBC (0-5) /hpf Urine WBC (0-5) /hpf Blood Type Blood Type Recheck Bld Type Recheck Status Antibody Screen Spec Expiration Date 01/22/23 01/22/23 01/22/23 Range/Units 22:08 22:10 22:19 WBC (3.8-10.6) k/uL RBC (4.30-5.90) m/uL Hgb (13.0-17.5) gm/dL Hct (39.0-53.0) % MCV (80.0-100.0) fL MCH (25.0-35.0) pg MCHC (31.0-37.0) g/dL RDW (11.5-15.5) % Plt Count (150-450) k/uL MPV Neutrophils % % Lymphocytes % % Monocytes % % Eosinophils % % Basophils % % Neutrophils # (1.3-7.7) k/uL Lymphocytes # (1.0-4.8) k/uL Monocytes # (0-1.0) k/uL Eosinophils # (0-0.7) k/uL Basophils # (0-0.2) k/uL PT (9.0-12.0) sec INR (<1.2) APTT (22.0-30.0) sec Sodium (137-145) mmol/L Potassium (3.5-5.1) mmol/L Chloride (98-107) mmol/L Carbon Dioxide (22-30) mmol/L Anion Gap mmol/L BUN (9-20) mg/dL Creatinine (0.66-1.25) mg/dL Est GFR (CKD-EPI)AfAm (>60 ml/min/1.73 sqM) Est GFR (CKD-EPI)NonAf (>60 ml/min/1.73 sqM) Glucose (74-99) mg/dL Calcium (8.4-10.2) mg/dL Magnesium (1.6-2.3) mg/dL Total Bilirubin (0.2-1.3) mg/dL AST (17-59) U/L ALT (4-49) U/L Alkaline Phosphatase (38-126) U/L Troponin I <0.012 (0.000-0.034) ng/mL Total Protein (6.3-8.2) g/dL Albumin (3.5-5.0) g/dL Urine Color Dark Red Urine Appearance Bloody (Clear) Urine RBC >182 H (0-5) /hpf Urine WBC >182 H (0-5) /hpf Blood Type O Positive Blood Type Recheck O Pos Bld Type Recheck Status No Antibody Screen NEGATIVE Spec Expiration Date 01/25/20232309 - EKG Data -: EKG Interpreted by Me EKG Comments: 12-lead Electrocardiogram Interpretation Note EKG was reviewed and interpreted by myself. 12-lead ECG performed at 2158 is interpreted by me as revealing sinus bradycardia at a rate of 54 beats per minute. [place] is normal. [place] interval is 187 ms, QRS duration is 104 ms, QTc is 383 ms.. There were no ST or T wave abnormalities to suggest myocardial ischemia or injury. R wave progression across the precordium was satisfactory. By my interpretation this EKG is non-diagnostic for acute ischemia. When compared with prior EKGs, patient does have a history of bradycardia. Prior EKGs compared from February 2021 Disposition Clinical Impression: Hematuria, Hematoma of bladder wall, Near syncope Disposition: HOME SELF-CARE Condition: Good Instructions (If sedation given, give patient instructions): Hematuria (ED) Is patient prescribed a controlled substance at d/c from ED?: No Referrals: Le Camargo MD [Primary Care Provider] - 1-2 days Time of Disposition: 00:30
[2023-01-23 00:54] VITALS: BP 114/67; PULSE 86; RESP 18; TEMP 98.2
== END 2023-01-23 00:54 | disposition home or self-care (01) ==
LOC: EC 21:48
DX: S37.22XA Contusion of bladder, initial encounter (principal); R31.9 Hematuria, unspecified; R55 Syncope and collapse; J45.909 Unspecified asthma, uncomplicated; E11.9 Type 2 diabetes mellitus without complications; K21.9 Gastro-esophageal reflux disease without esophagitis; Z79.51 Long term (current) use of inhaled steroids; Z79.84 Long term (current) use of oral hypoglycemic drugs; Z79.899 Other long term (current) drug therapy; Z91.041 Radiographic dye allergy status; Z87.891 Personal history of nicotine dependence; X58.XXXA Exposure to other specified factors, initial encounter
CPT/HCPCS: 36415; 93005; 86900; 86901; 80053; 83735; 84484; 85025; 85610; 85730; 86850; 81001; 87086; 71046; 76770; 74177; 99284; 96374; 96375 ×3; 96361; J1200; J2930; J2405; Q9967

== ENCOUNTER 2023-01-23 05:43 | Emergency (ER) | payer BC ==
[2023-01-23 05:48] VITALS: BP 127/75; RESP 18; TEMP 97.8
--- NOTE | 2023-01-23 06:22 | ED ---
General Adult HPI - General Chief complaint: Urogenital Stated complaint: Unable to urinate Time Seen by Provider: 01/23/23 05:55 Source: patient Mode of arrival: ambulatory Limitations: no limitations - History of Present Illness Initial comments: Patient is a 52-year-old male that returns to the emergency room for difficulty urinating. Patient had a TURP 12/22/[address] Poe. Patient states he had been doing much better and was no longer passing clots or blood. However last night started to pass tai blood and clots. He was seen in the emergency room and found to have a 6 cm x 4 cm x 4 cm bladder wall hematoma. Patient was urinating while in the emergency room but after going home he then became unable to urinate. States he starts to urinate but feels like a flap closes off. Patient states his abdomen feels full but denies pain.Patient has no other complaints at this time including shortness of breath, chest pain, abdominal pain, nausea or vomiting, headache, or visual changes. - Related Data Home Medications Medication Instructions Recorded Confirmed Omeprazole [PriLOSEC] 20 mg PO DAILY 02/03/16 05/19/21 Empagliflozin [Jardiance] 25 mg PO DAILY 08/12/19 05/19/21 Fluticasone/Vilanterol [Breo 1 puff INHALATION RT-DAILY PRN 08/12/19 05/19/21 Ellipta 100-25 Mcg Inhaler] lisinopriL [Zestril] 10 mg PO DAILY 11/18/20 05/19/21 Atorvastatin [Lipitor] 20 mg PO DAILY 05/19/21 05/19/21 tadalafiL 20 mg PO DIRECTED 05/19/21 05/19/21 Previous Rx's Medication Instructions Recorded Ciprofloxacin HCl [Cipro] 500 mg PO Q12H 10 Days #20 tab 05/21/21 Acetaminophen Tab [Tylenol] 650 mg PO Q6HR PRN tab 05/22/21 Tamsulosin [Flomax] 0.4 mg PO BID #60 cap.er.24h 05/22/21 dexAMETHasone [Decadron] 10 mg PO ONCE #2.5 tab 09/30/22 Allergies Allergy/AdvReac Type Severity Reaction Status Date / Time Iodinated Contrast Media AdvReac "PASSED Verified 01/22/23 21:57 [Iodinated Contrast Media - OUT, after IV Dye] fluroscopy" Review of Systems ROS Statement: Those systems with pertinent positive or pertinent negative responses have been documented in the HPI. ROS Other: All systems not noted in ROS Statement are negative. Past Medical History Past Medical History: Asthma, Diabetes Mellitus, GERD/Reflux Additional Past Medical History / Comment(s): hx migraines, constipation and bloating, History of Any Multi-Drug Resistant Organisms: None Reported Past Surgical History: Hernia Repair, Prostate Surgery Additional Past Surgical History / Comment(s): ARTHROSCOPIC RT KNEE , rt SHOULDER surgery, Past Anesthesia/Blood Transfusion Reactions: Motion Sickness Past Psychological History: No Psychological Hx Reported Smoking Status: Former smoker Past Alcohol Use History: Occasional Past Drug Use History: None Reported - Past Family History Father Family Medical History: Cancer Additional Family Medical History / Comment(s): Melanoma Mother Family Medical History: Coronary Artery Disease (CAD) Additional Family Medical History / Comment(s): Mother at the age of 81 yrs. She had 3 vessel CABG and cardiac stents General Exam Limitations: no limitations General appearance: alert, in no apparent distress Head exam: Present: atraumatic Eye exam: Present: normal appearance ENT exam: Present: normal exam, mucous membranes moist Neck exam: Present: normal inspection, full ROM. Absent: tenderness Respiratory exam: Present: normal lung sounds bilaterally Cardiovascular Exam: Present: regular rate, normal rhythm GI/Abdominal exam: Present: distended. Absent: soft, tenderness Neurological exam: Present: alert Course Vital Signs 01/23/23 01/23/23 05:45 08:25 Temperature 97.8 F Pulse Rate 104 H 89 Respiratory 18 Rate Blood Pressure 127/75 O2 Sat by Pulse 98 99 Oximetry Medical Decision Making - Medical Decision Making Postvoid residual 900. Case was discussed with Dr. Stephens who is on-call for urology. He recommended passing a Buckner catheter and irrigating the bladder which was performed by nursing staff. Culture pending from previous visit. Patient will be discharged home with outpatient follow-up. Disposition Clinical Impression: Hematoma of bladder wall, Urinary retention Disposition: HOME SELF-CARE Condition: Good Instructions (If sedation given, give patient instructions): Buckner Catheter Placement and Care (ED) Additional Instructions: Please follow up with Dr Poe on Wednesday. Return to the ER if buckner catheter is not draining. Is patient prescribed a controlled substance at d/c from ED?: No Referrals: Le Camargo MD [Primary Care Provider] - 1-2 days Time of Disposition: 09:35
[2023-01-23 08:25] VITALS: PULSE 89
== END 2023-01-23 10:09 | disposition home or self-care (01) ==
LOC: EC 05:43
DX: S37.22XA Contusion of bladder, initial encounter (principal); R33.9 Retention of urine, unspecified; J45.909 Unspecified asthma, uncomplicated; E11.9 Type 2 diabetes mellitus without complications; K21.9 Gastro-esophageal reflux disease without esophagitis; Z87.891 Personal history of nicotine dependence; Z91.041 Radiographic dye allergy status; Z79.899 Other long term (current) drug therapy; X58.XXXA Exposure to other specified factors, initial encounter
CPT/HCPCS: 51798; 99283

== ENCOUNTER → 2023-07-03 | Outpatient (CLI) | payer BC ==
[2023-07-03 18:31] LABS: Blood Urea Nitrogen 15.3 mg/dL (9.0-27.0); Calcium 9.6 mg/dL (8.7-10.3); Carbon Dioxide 21.8 mmol/L (21.6-31.8); Chloride 107 mmol/L (96-109); Chol/HDL Ratio 2.68 Ratio; Glucose 166 mg/dL (70-110); LDL Cholesterol,Calculated 46.7 mg/dL (0.0-131.0); Potassium 4.8 mmol/L (3.5-5.5); Sodium 142 mmol/L (135-145)
[2023-07-04 06:58] LABS: Basophils # (A) 0.06 X 10*3/uL (0.00-0.10); Basophils % (A) 1.2 %; Eosinophils # (A) 0.13 X 10*3/uL (0.04-0.35); Eosinophils % (A) 2.5 %; HCT 45.4 % (39.6-50.0); HGB 12.8 d/dL (13.0-17.0); Lymphocytes # (A) 1.87 X 10*3/uL (0.90-5.00); Lymphocytes % (A) 36.2 %; MCHC 28.2 d/dL (32.0-37.0); Mean Platelet Volume 10.9 FL (9.5-12.2); Monocytes # (A) 0.36 X 10*3/uL (0.20-1.00); NRBC Per 100 WBC 0 X 10*3/uL (0.00-0.01); Neutrophils # (A) 2.73 X 10*3/uL (1.80-7.70); Neutrophils % (A) 52.9 %; Platelet Count 317 X 10*3/uL (140-440); RBC 5.82 X 10*6/uL (4.40-5.60); RDW 19.5 % (11.5-14.5); WBC 5.16 X 10*3/uL (4.50-10.00)
== END | disposition home or self-care (01) ==
LOC: LABWHC1 08:25
PROVIDERS: ATTEND Family Medicine
DX: I10 Essential (primary) hypertension (principal); E11.9 Type 2 diabetes mellitus without complications; E78.5 Hyperlipidemia, unspecified
CPT/HCPCS: 36415; 80048; 80061; 83036; 85025